=== PATIENT | female | born 1925 | race Caucasian/White ===

== ENCOUNTER → 2016-09-14 | Outpatient (CLI) | payer MEDICARE, BC | LOC: OD 10:21 | PROVIDERS: ATTEND Physician Assistant Medical | DX: R06.02 Shortness of breath (principal) | CPT/HCPCS: 71020 ==

== ENCOUNTER → 2016-10-07 | Outpatient (CLI) | payer MEDICARE, BC ==
[2016-10-07 18:52] LABS: ALANINE AMINOTRANSFERASE 29 U/L (9-52); ALBUMIN 3.9 g/dL (3.5-5.0); ALKALINE PHOSPHATASE 73 U/L (38-126); ANION GAP 11 (5-19); ASPARTATE AMINO TRANSFERASE 28 U/L (14-36); BILIRUBIN,TOTAL 0.5 mg/dL (0.2-1.3); BLOOD UREA NITROGEN 21 mg/dL (7-20); CALCIUM 10.5 mg/dL (8.4-10.2); CARBON DIOXIDE 34 mmol/L (22-30); CHLORIDE 100 mmol/L (98-107); CREATININE RESULT 0.97 mg/dL (0.52-1.25); GLUCOSE 116 mg/dL (75-110); POTASSIUM 3.9 mmol/L (3.6-5.0); SODIUM 145.1 mmol/L (137-145); TOTAL PROTEIN 6.9 g/dL (6.3-8.2)
== END ==
LOC: OD 17:50
PROVIDERS: ATTEND Physician Assistant Medical
DX: R06.02 Shortness of breath (principal); R53.83 Other fatigue
CPT/HCPCS: 36415; 80053; 84443

== ENCOUNTER 2016-10-15 06:52 | Inpatient (IN) | payer MEDICARE, BC ==
[2016-10-15] MEDS ORDERED: ASPIRIN 81 MG TABLET, CHEWABLE PO ONE (07:25)
[2016-10-15] MEDS ORDERED: FUROSEMIDE INJ/PF 40 MG/4 ML SDV IV ONE (07:32)
[2016-10-15 08:46] LABS: PARTIAL THROMBOPLASTIN TIME 28.6 SEC (23.5-35.8); PROTHROMBIN TIME 12.8 SEC (11.4-15.4)
[2016-10-15 08:51] LABS: ABSOLUTE BASOPHILS # (AUTO) 0.1 10^3/uL (0.0-0.2); ABSOLUTE EOSINOPHILS # (AUTO) 0.3 10^3/uL (0.0-0.6); ABSOLUTE MONOCYTES (AUTO) 0.5 10^3/uL (0.1-1.4); ABSOLUTE NEUT (AUTO) 5.7 10^3/uL (1.7-8.2); BASOPHILS % (AUTO) 1.2 % (0-2); EOSINOPHILS % (AUTO) 3.4 % (0-6); HEMATOCRIT 40.3 % (36.0-47.0); HEMOGLOBIN 13.4 g/dL (12.0-15.5); HGB HCT DIFFERENCE -0.1; LYMPHOCYTES % (AUTO) 12.8 % (13-45); MEAN CORPUSCULAR HEMOGLOBIN 30.1 pg (27.0-33.4); MEAN CORPUSCULAR HGB CONC 33.2 g/dL (32.0-36.0); MEAN CORPUSCULAR VOLUME 91 fl (80-97); MONOCYTES % (AUTO) 7.1 % (3-13); RED BLOOD COUNT 4.44 10^6/uL (3.72-5.28); RED CELL DISTRIBUTION WIDTH 14.4 % (11.5-14.0); SEGMENTED NEUTROPHILS % (AUTO) 75.5 % (42-78); WHITE BLOOD COUNT 7.6 10^3/uL (4.0-10.5)
[2016-10-15 08:56] LABS: ALANINE AMINOTRANSFERASE 25 U/L (9-52); ALBUMIN 4.2 g/dL (3.5-5.0); ALKALINE PHOSPHATASE 82 U/L (38-126); ANION GAP 11 (5-19); ASPARTATE AMINO TRANSFERASE 24 U/L (14-36); BILIRUBIN,DIRECT 0.1 mg/dL (0.0-0.4); BILIRUBIN,TOTAL 0.7 mg/dL (0.2-1.3); BLOOD UREA NITROGEN 22 mg/dL (7-20); CALCIUM 11.9 mg/dL (8.4-10.2); CARBON DIOXIDE 35 mmol/L (22-30); CHLORIDE 101 mmol/L (98-107); CREATINE KINASE 62 U/L (30-135); CREATININE RESULT 1.03 mg/dL (0.52-1.25); GLUCOSE 135 mg/dL (75-110); LIPASE 96.7 U/L (23-300); MAGNESIUM 2.2 mg/dL (1.6-2.3); POTASSIUM 4.8 mmol/L (3.6-5.0); SODIUM 146.6 mmol/L (137-145); TOTAL PROTEIN 7.3 g/dL (6.3-8.2)
[2016-10-15 08:59] LABS: VENOUS BLOOD BASE EXCESS 7.6 mmol/L; VENOUS BLOOD HCO3 36.5 mmol/L (20-32); VENOUS BLOOD PH 7.32 (7.30-7.42)
[2016-10-15 09:01] LABS: VENOUS BLOOD PCO2 72.6 mmHg (35-63)
[2016-10-15 09:08] LABS: CREATINE KINASE MB 1.35 ng/mL (<4.55)
[2016-10-15 09:09] LABS: TROPONIN I < 0.012 ng/mL
[2016-10-15 09:44] LABS: APPEARANCE,URINE CLEAR; BILIRUBIN,URINE NEGATIVE (NEGATIVE); GLUCOSE, URINE NEGATIVE (NEGATIVE); KETONES,URINE NEGATIVE (NEGATIVE); LEUKOCYTE ESTERASE,URINE NEGATIVE (NEGATIVE); NITRITE,URINE NEGATIVE (NEGATIVE); PROTEIN,URINE NEGATIVE (NEGATIVE); URINE SPECIFIC GRAVITY 1.004; UROBILINOGEN,URINE NEGATIVE mg/dL (<2.0)
--- NOTE | 2016-10-15 10:16 | EKG REPORT ---
SEVERITY:- BORDERLINE ECG - SINUS RHYTHM BORDERLINE T WAVE ABNORMALITIES : Confirmed by: Deon Clancy MD 15-Oct-2016 10:15:07
--- NOTE | 2016-10-15 10:41 | ER Document Report ---
ED General - General Chief Complaint: Shortness Of Breath Stated Complaint: SHORTNESS OF BREATH TRAVEL OUTSIDE OF THE [place] IN LAST 30 DAYS: No - HPI Patient complains to provider of: shortness of breath Notes: Patient states a history of heart conditions and congestive heart failure having increased dose of breath over the last 12 hours states having difficulty breathing when laying flat had to sit up night prior to arrival states recent change in her medications states was on 2 diuretics Hydrocort thiazide and Lasix now is only on Lasix 20 mg states compliance with her medication however patient is confused about salt intake and fluid restriction states that she only eats salt within the foods that her package. Patient states he does eat a lot of canned food. Unaware of any weight gain. Denies any chest pain denies any fevers - Related Data Allergies/Adverse Reactions: codeine Allergy (Mild, Verified 04/13/16 11:00) Delusions Home Medications: Current Home Medications Amiodarone HCl [Cordarone 200 mg Tablet] 1 tab PO Q12 10/15/16 [History] Amlodipine Besylate [Norvasc 5 mg Tablet] 5 mg PO DAILY 10/15/16 [History] Atorvastatin Calcium [Lipitor 10 mg Tablet] 10 mg PO QHS 10/15/16 [History] Cholecalciferol (Vitamin D3) [Vitamin D3 1000 Unit Tablet] 1,000 unit PO DAILY 10/15/16 [History] Clopidogrel Bisulfate [Plavix 75 mg Tablet] 75 mg PO QAM 10/15/16 [History] Furosemide [Lasix] 40 mg PO DAILY 10/15/16 [History] Gabapentin [Neurontin 300 mg Capsule] 300 mg PO QAM 10/15/16 [History] Gabapentin [Neurontin] 600 mg PO QHS 10/15/16 [History] Glimepiride [Amaryl 1 mg Tablet] 1 mg PO BID 10/15/16 [History] Levothyroxine Sodium [Synthroid] 100 mcg PO DAILY 10/15/16 [History] Linaclotide [Linzess] 290 mcg PO DAILY 10/15/16 [History] Potassium Chloride [Klor-Con 10 Meq Tablet.sa] 20 meq PO DAILY 10/15/16 [History ] Past Medical History - Social History Smoking Status: Unknown if Ever Smoked Family History: Reviewed & Not Pertinent - Past Medical History Cardiac Medical History: Reports: Hx Congestive Heart Failure, Hx Hypercholesterolemia, Hx Hypertension Pulmonary Medical History: Denies: Hx Asthma, Hx Bronchitis, Hx COPD, Hx Pneumonia Neurological Medical History: Denies: Hx Cerebrovascular Accident, Hx Seizures Endocrine Medical History: Reports: Hx Diabetes Mellitus Type 2, Hx Hypothyroidism Renal/ Medical History: Denies: Hx Peritoneal Dialysis Musculoskeltal Medical History: Reports Hx Arthritis - GENERALIZED, Reports Hx Muscle Weakness, Reports Hx Musculoskeletal Deformity Past Surgical History: Reports: Hx Cholecystectomy, Hx Hysterectomy - Immunizations Hx Diphtheria, Pertussis, Tetanus Vaccination: Yes Hx Pneumococcal Vaccination: 04/23/13 Review of Systems - Review of Systems Constitutional: No symptoms reported EENT: No symptoms reported Cardiovascular: No symptoms reported Respiratory: Short of breath Gastrointestinal: No symptoms reported Genitourinary: No symptoms reported Female Genitourinary: No symptoms reported Musculoskeletal: No symptoms reported Skin: No symptoms reported Hematologic/Lymphatic: No symptoms reported Neurological/Psychological: No symptoms reported -: Yes All other systems reviewed and negative Physical Exam - Vital signs Vitals: Resp Pulse Ox 20 98 10/15/16 07:00 10/15/16 07:00 Interpretation: Normal - General General appearance: Appears well, Alert - HEENT Head: Normocephalic, Atraumatic Eyes: Normal Pupils: PERRL - Respiratory Respiratory status: No respiratory distress Chest status: Nontender Breath sounds: Rales Chest palpation: Normal - Cardiovascular Rhythm: Regular Heart sounds: Normal auscultation Murmur: No - Abdominal Inspection: Normal Distension: No distension Bowel sounds: Normal Tenderness: Nontender Organomegaly: No organomegaly - Back Back: Normal, Nontender - Extremities General upper extremity: Normal inspection, Nontender, Normal color, Normal ROM , Normal temperature General lower extremity: Normal inspection, Nontender, Edema - 2+, Normal color , Normal ROM, Normal temperature - Neurological Neuro grossly intact: Yes Cognition: Normal Orientation: AAOx4 [place] Coma Scale Eye Opening: Spontaneous [place] Coma Scale Verbal: Oriented [place] Coma Scale Motor: Obeys Commands [place] Coma Scale Total: 15 Speech: Normal Motor strength normal: LUE, RUE, LLE, RLE Sensory: Normal - Psychological Associated symptoms: Normal affect, Normal mood - Skin Skin Temperature: Warm Skin Moisture: Dry Skin Color: Normal Course - Re-evaluation Re-evalutation: 10/15/16 15:28 Lab work shows thrombocytopenia. Patient's chest x-ray shows mild fluid congestion with pleural effusion. Patient was given Lasix after Lasix with good urinary output and some short and ambulation patient continued to have desaturation of her oxygen status despite having 2 L of oxygen. At this time discussed with the hospital staff limit the patient for a CHF exacerbation. - Vital Signs Vital signs: Temp Pulse Resp BP Pulse Ox 97.5 F 59 L 18 163/54 H 99 10/15/16 13:20 10/15/16 13:20 10/15/16 13:17 10/15/16 13:20 10/15/16 13:20 - Laboratory Result Diagrams: 10/15/16 08:33 10/15/16 08:33 Laboratory results interpreted by me: 10/15/16 10/15/16 10/15/16 08:15 08:33 08:33 RDW 14.4 H Plt Count 89 L Lymphocytes % 12.8 L VBG pCO2 72.6 H* VBG HCO3 36.5 H Sodium 146.6 H Carbon Dioxide 35 H BUN 22 H Est GFR (Non-Af Amer) 50 L Glucose 135 H Calcium 11.9 H NT-Pro-B Natriuret Pep 10/15/16 08:33 RDW Plt Count Lymphocytes % VBG pCO2 VBG HCO3 Sodium Carbon Dioxide BUN Est GFR (Non-Af Amer) Glucose Calcium NT-Pro-B Natriuret Pep 564 H Discharge - Discharge Clinical Impression: Thrombocytopenia CHF exacerbation Qualifiers: Congestive heart failure type: diastolic Qualified Code(s): I50.33 - Acute on chronic diastolic (congestive) heart failure Condition: Good Disposition: ADMITTED INPATIENT Admitting Provider: Hospitalist - [facility] Unit Admitted: Telemetry
[2016-10-15] MEDS ORDERED: ACETAMINOPHEN 325 MG TABLET PO PRN (12:05)
[2016-10-15] MEDS ORDERED: INSULIN LISPRO 100 UNIT/ML 3 ML VIAL SUBCUT PRN (12:20)
[2016-10-15] MEDS ORDERED: DEXTROSE 40% GEL 15 GM TUBE PO PRN ×2 (12:20)
[2016-10-15] MEDS ORDERED: DEXTROSE 50%-WATER 25 GM/50 ML DISP.SYRIN IV PRN ×2 (12:20)
[2016-10-15] MEDS ORDERED: GLUCAGON,HUMAN RECOMB 1 MG INJ IM PRN (12:20)
[2016-10-15] MEDS ORDERED: HEPARIN SOD (PORCINE) 5,000 UNIT/ML 1 ML SYRINGE SUBCUT SCH (14:00)
[2016-10-15] MEDS: AMLODIPINE BESYLATE 5 MG TABLET PO SCH (14:27)
--- NOTE | 2016-10-15 15:20 | PDOC H&P ---
History of Present Illness Admission Date/PCP: 10/15/16 12:05 JORGE MAY MD Patient complains of: Difficulty breathing History of Present Illness: GEORGETTE RIVERA is a 89 year old female presents to the emergency department with a 24-hour history of worsening shortness of breath, worsening swelling and weight gain, increased orthopnea and PND. She carries a history of diastolic heart failure and is followed by Dr. Herring as her primary clinical exercise physiologist who recently discontinued her HCTZ in coordination with her bakery helper following her hyperparathyroidism and resultant hypercalcemia. They did increase her Lasix dose. Since that time however she has noticed gradual increase in generalized swelling culminating in today's presentation. She normally wears 2 L of oxygen at night but over the last 24 hours has taken to using it continuously with little relief. She reportedly had an NSTEMI in March 2016, echocardiogram at that time had a normal left ventricular systolic function but grade 2 diastolic dysfunction. Evaluation in the emergency department shows her to be fluid overloaded and rufina most likely diastolic heart failure given her history and we were asked to admit for further evaluation and management. Past Medical History Cardiac Medical History: Reports: Congestive Heart Failure, Hyperlipidema, Hypertension Pulmonary Medical History: Denies: Asthma, Bronchitis, Chronic Obstructive Pulmonary Disease (COPD), Pneumonia Neurological Medical History: Denies: Seizures Endocrine Medical History: Reports: Diabetes Mellitus Type 2, Hypothyroidism Musculoskeltal Medical History: Reports: Arthritis - GENERALIZED Psychiatric Medical History: Denies: Depression Hematology: Denies: Anemia Past Surgical History Past Surgical History: Reports: Cholecystectomy, Hysterectomy Social History Smoking Status: Never Smoker Frequency of Alcohol Use: None Hx Recreational Drug Use: No Drugs: None Hx Prescription Drug Abuse: No - Advance Directive Resuscitation Status: Full Code Family History Family History: Reviewed & Not Pertinent, CAD Parental Family History Reviewed: Yes Children Family History Reviewed: Yes Sibling(s) Family History Reviewed.: Yes Medication/Allergy Home Medications: Amiodarone HCl [Cordarone 200 mg Tablet] 1 tab PO Q12 10/15/16 Amlodipine Besylate [Norvasc 5 mg Tablet] 5 mg PO DAILY 10/15/16 Atorvastatin Calcium [Lipitor 10 mg Tablet] 10 mg PO QHS 10/15/16 Cholecalciferol (Vitamin D3) [Vitamin D3 1000 Unit Tablet] 1,000 unit PO DAILY 10/15/16 Clopidogrel Bisulfate [Plavix 75 mg Tablet] 75 mg PO QAM 10/15/16 Furosemide [Lasix] 40 mg PO DAILY 10/15/16 Gabapentin [Neurontin 300 mg Capsule] 300 mg PO QAM 10/15/16 Gabapentin [Neurontin] 600 mg PO QHS 10/15/16 Glimepiride [Amaryl 1 mg Tablet] 1 mg PO BID 10/15/16 Levothyroxine Sodium [Synthroid] 100 mcg PO DAILY 10/15/16 Linaclotide [Linzess] 290 mcg PO DAILY 10/15/16 Potassium Chloride [Klor-Con 10 Meq Tablet.sa] 20 meq PO DAILY 10/15/16 Allergies/Adverse Reactions: codeine Allergy (Mild, Verified 04/13/16 11:00) Delusions Review of Systems Constitutional: ABSENT: chills, fever(s), headache(s), weight gain, weight loss Eyes: ABSENT: visual disturbances Ears: ABSENT: hearing changes Cardiovascular: PRESENT: dyspnea on exertion, edema, orthropnea. ABSENT: chest pain, palpitations Respiratory: PRESENT: dyspnea. ABSENT: cough, hemoptysis, sputum Gastrointestinal: ABSENT: abdominal pain, constipation, diarrhea, hematemesis, hematochezia, nausea, vomiting Genitourinary: ABSENT: dysuria, hematuria Musculoskeletal: ABSENT: joint swelling Integumentary: ABSENT: rash, wounds Neurological: ABSENT: abnormal gait, abnormal speech, confusion, dizziness, focal weakness, syncope Psychiatric: ABSENT: anxiety, depression Endocrine: ABSENT: cold intolerance, heat intolerance, polydipsia, polyuria Hematologic/Lymphatic: ABSENT: easy bleeding, easy bruising Physical Exam Vital Signs: Temp Pulse Resp BP Pulse Ox 97.5 F 59 L 18 163/54 H 99 10/15/16 13:20 10/15/16 13:20 10/15/16 13:17 10/15/16 13:20 10/15/16 13:20 Intake & Output 10/14/16 10/15/16 10/16/16 06:59 06:59 06:59 Weight 88.4 kg PHYSICAL EXAM GENERAL: NAD; well developed, well nourished; mod obese; alert and oriented to person, place, time, situation HEENT: normocephalic, atraumatic; EOMI, PERRLA, no conjunctival injection, no scleral icterus; oral mucosa moist; neck supple, no LAD, normal ROM RESPIRATORY: no accessory muscle use, no increased WOB, diminished air entry bilaterally; no wheezes, rhonchi; bilateral rales CARDIO: no obvious JVD; RRR; soft systolic ejection murmur left second intercostal; bradycardia VASCULAR: no carotid bruit; no abdominal bruit; no pallor; 2+ radial, DP pulse ; normal capillary refill GI: soft; nondistended; normal bowel sounds; no hepato spleno megaly; no rebound, rigidity, guarding; nontender NEURO: normal patella reflexes; normal sensation; normal motor function;no dysarthria; MSK: 5/5 strength; normal ROM hips; ambulatory without assistance; no tenderness EXTREMITIES: no calf tender; no palpable cords in calf; no clubbing, cyanosis ; diffuse edema 1+ at the ankles tracking all the way to trace edema up to the xiphoid process most evident in dependent tissues PSYCH: normal affect, normal mood SKIN: warm; moist; no petechiae; no telengectasias; no jaundice; no rash Results Laboratory Results: 10/15/16 13:19 Troponin I 0.015 Impressions: Chest X-Ray 10/15/16 07:25 IMPRESSION: Mild vascular congestion. Small left effusion. Status: Image reviewed by me - agree with radiology Assessment & Plan - Diagnosis (1) Acute diastolic heart failure Is this a current diagnosis for this admission?: YesPlan: Patient will be admitted to monitored bed and changed from oral to IV Lasix in attempt to diurese 1 L per day; fluid restrict, daily weights, strict I's and O' s. Continue usual home regimen otherwise. (2) Hypercalcemia Is this a current diagnosis for this admission?: Yes (3) Hyperlipidemia Qualifiers: Hyperlipidemia type: unspecified Qualified Code(s): E78.5 - Hyperlipidemia, unspecified Is this a current diagnosis for this admission?: Yes (4) Hypertension Qualifiers: Hypertension type: essential hypertension Qualified Code(s): I10 - Essential (primary) hypertension Is this a current diagnosis for this admission?: Yes (5) Type II diabetes mellitus Qualifiers: Diabetes mellitus complication status: with unspecified complications Diabetes mellitus terminal makeup operator insulin use: without terminal makeup operator use Qualified Code(s): E11.8 - Type 2 diabetes mellitus with unspecified complications; Z79.4 - penitentiary (current) use of insulin Is this a current diagnosis for this admission?: Yes - Time Time Spent: 50 to 70 Minutes Medications reviewed and adjusted accordingly: Yes Anticipated discharge: Home with Homehealth Within: within 72 hours - Inpatient Certification Medical Necessity: Significant Comorbidiites Make Outpatient Treatment Too Risky , Need For Continuous Telemetry Monitoring, Risk of Complication if Not Cared For in Hospital - Plan Summary Plan Summary: Continue home meds for chronic medical conditions. Monitor platelet therapy while on Plavix. H2 giuliano for GI prophylaxis; SCDs for DVT prophylaxis due to chronic thrombocytopenia and products given.
[2016-10-15] MEDS: GLIMEPIRIDE 1 MG TABLET PO SCH (17:00)
[2016-10-15] MEDS: AMIODARONE HCL 200 MG TABLET PO SCH (21:19)
[2016-10-15] MEDS: ATORVASTATIN CALCIUM 10 MG TABLET PO SCH (21:20)
[2016-10-15] MEDS ORDERED: AMIODARONE HCL 200 MG TABLET PO SCH (22:00)
[2016-10-15] MEDS ORDERED: FUROSEMIDE INJ/PF 40 MG/4 ML SDV IV SCH (22:00)
[2016-10-16 07:34] LABS: ANION GAP 7 (5-19); BLOOD UREA NITROGEN 22 mg/dL (7-20); CALCIUM 10.8 mg/dL (8.4-10.2); CARBON DIOXIDE 37 mmol/L (22-30); CHLORIDE 101 mmol/L (98-107); CREATININE RESULT 0.97 mg/dL (0.52-1.25); GLUCOSE 122 mg/dL (75-110); MAGNESIUM 2.1 mg/dL (1.6-2.3); POTASSIUM 4.3 mmol/L (3.6-5.0); SODIUM 145.4 mmol/L (137-145)
[2016-10-16] MEDS: GABAPENTIN 300 MG CAPSULE PO SCH (08:26)
[2016-10-16] MEDS: Linaclotide [Linzess] PO SCH (08:27)
[2016-10-16] MEDS: POTASSIUM CHLORIDE 10 MEQ TABLET.SA PO SCH (11:00)
[2016-10-16] MEDS: GLIMEPIRIDE 1 MG TABLET PO SCH ×2 (11:00→17:37)
[2016-10-16] MEDS: AMIODARONE HCL 200 MG TABLET PO SCH ×2 (11:01→23:54)
[2016-10-16] MEDS: LEVOTHYROXINE SODIUM 0.1 MG TABLET PO SCH (11:01)
[2016-10-16] MEDS: PANTOPRAZOLE SODIUM 40 MG VIAL IV SCH (11:01)
--- NOTE | 2016-10-16 13:55 | PDOC PROGRESS REPORT ---
Subjective Progress Note for:: 10/16/16 Subjective:: Reason for visit: Follow-up diastolic heart failure, acute respiratory failure Hospital course:GEORGETTE RIVERA is a 89 year old female presents to the emergency department with a 24-hour history of worsening shortness of breath, worsening swelling and weight gain, increased orthopnea and PND. She carries a history of diastolic heart failure and is followed by Dr. Herring as her primary medical assisting program director who recently discontinued her HCTZ in coordination with her vending route driver following her hyperparathyroidism and resultant hypercalcemia. They did increase her Lasix dose. Since that time however she has noticed gradual increase in generalized swelling culminating in today's presentation. She normally wears 2 L of oxygen at night but over the last 24 hours has taken to using it continuously with little relief. She reportedly had an NSTEMI in March 2016, echocardiogram at that time had a normal left ventricular systolic function but grade 2 diastolic dysfunction. Evaluation in the emergency department shows her to be fluid overloaded and rufina most likely diastolic heart failure given her history and we were asked to admit for further evaluation and management. She reports minimal improvement in her generalized edema and no improvement in her respiratory status. She still feels a heaviness in her chest accident difficult to get her air. She is easily fatigued and breathless with minimal exertion. Subjective: As above, denies chest pain, palpitations, nausea, vomiting, diarrhea, fever, chills. ROS: per HPI plus a total of 10 systems reviewed, pertinent positives and negatives noted above, remaining systems negative. Physical Exam Vital Signs: Temp Pulse Resp BP Pulse Ox 98.1 F 57 L 17 142/54 H 99 10/16/16 12:00 10/16/16 12:00 10/16/16 12:00 10/16/16 12:00 10/16/16 12:00 Pulse Oximeter Continuous Start: 10/15/16 12: 10 Freq: RTQ4 Status: Active Document 10/16/16 12:00 HCR (Rec: 10/16/16 12:15 HCR [email or web address]) Pulse Oximetry Assessment Oxygen Saturation (92-100) 99 Oxygen Flow Rate (L/min) 3 Oxygen Delivery Method Nasal Cannula Equipment Usage Equipment in Use Continuous SpO2 Machine # 14 Intake & Output 10/15/16 10/16/16 10/17/16 06:59 06:59 06:59 Intake Total 700 Output Total 800 Balance -100 Weight 89.4 kg PHYSICAL EXAM GENERAL: NAD; well developed, well nourished; mod obese; alert and oriented to person, place, time, situation HEENT: normocephalic, atraumatic; EOMI, PERRLA, no conjunctival injection, no scleral icterus; oral mucosa moist; neck supple, no LAD, normal ROM RESPIRATORY: no accessory muscle use, no increased WOB, diminished air entry bilaterally; no wheezes, rhonchi; worsened bilateral rales diffuse CARDIO: no obvious JVD; RRR; soft systolic ejection murmur left second intercostal; bradycardia VASCULAR: no pallor; 2+ radial; normal capillary refill GI: soft; nondistended; normal bowel sounds; no hepato spleno megaly; no rebound, rigidity, guarding; nontender NEURO: normal patella reflexes; normal sensation; normal motor function;no dysarthria; MSK: 5/5 strength; normal ROM hips; ambulatory without assistance; no tenderness EXTREMITIES: no calf tender; no palpable cords in calf; no clubbing, cyanosis ; diffuse edema 1+ at the ankles tracking all the way to trace edema up to the xiphoid process most evident in dependent tissues - unchanged PSYCH: normal affect, normal mood SKIN: warm; moist; no petechiae; no telengectasias; no jaundice; no rash Results Laboratory Results: 10/16/16 07:04 10/16/16 10/16/16 06:12 07:04 Sodium Cancelled 145.4 H Potassium Cancelled 4.3 Chloride Cancelled 101 Carbon Dioxide Cancelled 37 H Anion Gap Cancelled 7 BUN Cancelled 22 H Creatinine Cancelled 0.97 Est GFR ( Amer) Cancelled > 60 Est GFR (Non-Af Amer) Cancelled 54 L Glucose Cancelled 122 H Calcium Cancelled 10.8 H Magnesium Cancelled 2.1 10/15/16 10/16/16 10/16/16 13:19 06:12 07:04 Troponin I 0.015 NT-Pro-B Natriuret Pep Cancelled 561 H Impressions: Chest X-Ray 10/15/16 07:25 IMPRESSION: Mild vascular congestion. Small left effusion. Assessment & Plan - Diagnosis (1) Acute diastolic heart failure Is this a current diagnosis for this admission?: YesPlan: Worse. Increase IV Lasix in attempt to diurese 1 L per day; fluid restrict, daily weights, strict I's and O's. Continue usual home regimen otherwise. (2) Hypercalcemia Is this a current diagnosis for this admission?: Yes (3) Hyperlipidemia Qualifiers: Hyperlipidemia type: unspecified Qualified Code(s): E78.5 - Hyperlipidemia, unspecified Is this a current diagnosis for this admission?: Yes (4) Hypertension Qualifiers: Hypertension type: essential hypertension Qualified Code(s): I10 - Essential (primary) hypertension Is this a current diagnosis for this admission?: Yes (5) Type II diabetes mellitus Qualifiers: Diabetes mellitus complication status: with unspecified complications Diabetes mellitus terminal makeup operator insulin use: without terminal makeup operator use Qualified Code(s): E11.8 - Type 2 diabetes mellitus with unspecified complications; Z79.4 - correction (current) use of insulin Is this a current diagnosis for this admission?: Yes - Time Time Spent with patient: 25-34 minutes
[2016-10-16] MEDS: FUROSEMIDE INJ/PF 40 MG/4 ML SDV IV SCH ×2 (14:51→22:08)
[2016-10-16] MEDS: AMLODIPINE BESYLATE 5 MG TABLET PO SCH (17:37)
[2016-10-16] MEDS: ATORVASTATIN CALCIUM 10 MG TABLET PO SCH (22:08)
[2016-10-17] MEDS: FUROSEMIDE INJ/PF 40 MG/4 ML SDV IV SCH ×3 (06:30→22:37)
[2016-10-17 06:55] LABS: ANION GAP 11 (5-19); BLOOD UREA NITROGEN 27 mg/dL (7-20); CARBON DIOXIDE 38 mmol/L (22-30); CHLORIDE 96 mmol/L (98-107); CREATININE RESULT 0.97 mg/dL (0.52-1.25); GLUCOSE 106 mg/dL (75-110); POTASSIUM 4.1 mmol/L (3.6-5.0); SODIUM 144.7 mmol/L (137-145)
[2016-10-17] MEDS: GABAPENTIN 300 MG CAPSULE PO SCH (07:42)
[2016-10-17] MEDS: Linaclotide [Linzess] PO SCH (07:42)
[2016-10-17] MEDS: POTASSIUM CHLORIDE 10 MEQ TABLET.SA PO SCH (09:15)
[2016-10-17] MEDS: PANTOPRAZOLE SODIUM 40 MG VIAL IV SCH (09:15)
[2016-10-17] MEDS: AMIODARONE HCL 200 MG TABLET PO SCH ×2 (09:15→22:37)
[2016-10-17] MEDS: LEVOTHYROXINE SODIUM 0.1 MG TABLET PO SCH (09:15)
[2016-10-17] MEDS: GLIMEPIRIDE 1 MG TABLET PO SCH ×2 (09:15→17:18)
[2016-10-17] MEDS: AMLODIPINE BESYLATE 5 MG TABLET PO SCH (15:12)
--- NOTE | 2016-10-17 17:33 | PDOC PROGRESS REPORT ---
Subjective Progress Note for:: 10/17/16 Subjective:: Reason for visit: Follow-up diastolic heart failure, acute respiratory failure Hospital course:GEORGETTE RIVERA is a 89 year old female presents to the emergency department with a 24-hour history of worsening shortness of breath, worsening swelling and weight gain, increased orthopnea and PND. She carries a history of diastolic heart failure and is followed by Dr. Herring as her primary linen room custodian who recently discontinued her HCTZ in coordination with her fish net maker following her hyperparathyroidism and resultant hypercalcemia. They did increase her Lasix dose. Since that time however she has noticed gradual increase in generalized swelling culminating in today's presentation. She normally wears 2 L of oxygen at night but over the last 24 hours has taken to using it continuously with little relief. She reportedly had an NSTEMI in March 2016, echocardiogram at that time had a normal left ventricular systolic function but grade 2 diastolic dysfunction. Evaluation in the emergency department shows her to be fluid overloaded and rufina most likely diastolic heart failure given her history and we were asked to admit for further evaluation and management. She reports minimal improvement in her generalized edema and no improvement in her respiratory status. She still feels a heaviness in her chest accident difficult to get her air. She is easily fatigued and breathless with minimal exertion. Subjective: As above, denies chest pain, palpitations, nausea, vomiting, diarrhea, fever, chills. ROS: per HPI plus a total of 10 systems reviewed, pertinent positives and negatives noted above, remaining systems negative. Physical Exam Vital Signs: Temp Pulse Resp BP Pulse Ox 97.6 F 52 L 18 136/50 H 98 10/17/16 11:09 10/17/16 14:00 10/17/16 11:09 10/17/16 11:09 10/17/16 12:18 Intake & Output 10/16/16 10/17/16 10/18/16 06:59 06:59 06:59 Intake Total 700 940 Output Total 800 2300 Balance -100 -1360 Weight 89.4 kg 90.6 kg PHYSICAL EXAM GENERAL: NAD; well developed, well nourished; mod obese; alert and oriented to person, place, time, situation HEENT: normocephalic, atraumatic; EOMI, PERRLA, no conjunctival injection, no scleral icterus; oral mucosa moist; neck supple, no LAD, normal ROM RESPIRATORY: no accessory muscle use, no increased WOB, diminished air entry bilaterally; no wheezes, rhonchi; stable bilateral rales CARDIO: no obvious JVD; RRR; soft systolic ejection murmur left second intercostal; bradycardia VASCULAR: no pallor; 2+ radial; normal capillary refill GI: soft; nondistended; normal bowel sounds; no hepato spleno megaly; no rebound, rigidity, guarding; nontender NEURO: normal patella reflexes; normal sensation; normal motor function;no dysarthria; MSK: 5/5 strength; normal ROM hips; ambulatory without assistance; no tenderness EXTREMITIES: no calf tender; no palpable cords in calf; no clubbing, cyanosis ; diffuse edema 1+ at the ankles tracking all the way to trace edema up to the xiphoid process most evident in dependent tissues - minimally improved, showing wrinkles in her feet PSYCH: normal affect, normal mood SKIN: warm; moist; no petechiae; no telengectasias; no jaundice; no rash Results Laboratory Results: 10/17/16 05:39 10/17/16 05:39 Sodium 144.7 Potassium 4.1 Chloride 96 L Carbon Dioxide 38 H Anion Gap 11 BUN 27 H Creatinine 0.97 Est GFR ( Amer) > 60 Est GFR (Non-Af Amer) 54 L Glucose 106 Calcium 11.0 H 10/15/16 10/16/16 10/16/16 13:19 06:12 07:04 Troponin I 0.015 NT-Pro-B Natriuret Pep Cancelled 561 H 10/17/16 05:39 Troponin I NT-Pro-B Natriuret Pep 486 H labs reviewed, met alkalosis worsening Assessment & Plan - Diagnosis (1) Acute diastolic heart failure Is this a current diagnosis for this admission?: YesPlan: slight improvement but not back to baseline. continue IV Lasix in attempt to diurese 1 L per day; fluid restrict, daily weights, strict I's and O's. Continue usual home regimen otherwise. (2) Hypercalcemia Is this a current diagnosis for this admission?: YesPlan: Likely worsened due to intravascular volume contraction. (3) Hyperlipidemia Qualifiers: Hyperlipidemia type: unspecified Qualified Code(s): E78.5 - Hyperlipidemia, unspecified Is this a current diagnosis for this admission?: Yes (4) Hypertension Qualifiers: Hypertension type: essential hypertension Qualified Code(s): I10 - Essential (primary) hypertension Is this a current diagnosis for this admission?: Yes (5) Type II diabetes mellitus Qualifiers: Diabetes mellitus complication status: with unspecified complications Diabetes mellitus stage technician insulin use: without stage technician use Qualified Code(s): E11.8 - Type 2 diabetes mellitus with unspecified complications; Z79.4 - [facility] (current) use of insulin Is this a current diagnosis for this admission?: Yes (6) Metabolic alkalosis with respiratory acidosis Is this a current diagnosis for this admission?: YesPlan: There may also be an element of contraction alkalosis occurring as we diurese. We'll check an arterial blood gas and continue to monitor her Chem-7. - Time Time Spent with patient: 25-34 minutes - Plan Summary Plan Summary: There may not be much more intravascular room for continued diuresis but will push through one more day. We'll need to reevaluate carefully in the morning and likely cut back on the IV Lasix. She is only just now starting to show some improvement with her respiratory status however prompting continued aggressive therapy.
[2016-10-17] MEDS: ATORVASTATIN CALCIUM 10 MG TABLET PO SCH (22:37)
[2016-10-18 00:40] LABS: VENOUS BLOOD BASE EXCESS 15.1 mmol/L; VENOUS BLOOD PH 7.38 (7.30-7.42)
[2016-10-18 00:42] LABS: VENOUS BLOOD PCO2 75.8 mmHg (35-63)
[2016-10-18 04:04] LABS: VENOUS BLOOD BASE EXCESS 14.9 mmol/L; VENOUS BLOOD HCO3 43.5 mmol/L (20-32); VENOUS BLOOD PH 7.39 (7.30-7.42)
[2016-10-18 04:26] LABS: VENOUS BLOOD PCO2 73.4 mmHg (35-63)
[2016-10-18 04:31] LABS: ANION GAP 12 (5-19); BLOOD UREA NITROGEN 33 mg/dL (7-20); CALCIUM 11.1 mg/dL (8.4-10.2); CARBON DIOXIDE 39 mmol/L (22-30); CHLORIDE 93 mmol/L (98-107); CREATININE RESULT 1.14 mg/dL (0.52-1.25); GLUCOSE 112 mg/dL (75-110); MAGNESIUM 2.2 mg/dL (1.6-2.3); POTASSIUM 3.8 mmol/L (3.6-5.0); SODIUM 144.2 mmol/L (137-145)
[2016-10-18] MEDS: FUROSEMIDE INJ/PF 40 MG/4 ML SDV IV SCH ×2 (06:33→13:54)
[2016-10-18] MEDS: GABAPENTIN 300 MG CAPSULE PO SCH (07:31)
[2016-10-18] MEDS: Linaclotide [Linzess] PO SCH (07:32)
[2016-10-18] MEDS: LEVOTHYROXINE SODIUM 0.1 MG TABLET PO SCH (09:01)
[2016-10-18] MEDS: AMIODARONE HCL 200 MG TABLET PO SCH ×2 (09:01→21:32)
[2016-10-18] MEDS: GLIMEPIRIDE 1 MG TABLET PO SCH ×2 (09:01→17:24)
[2016-10-18] MEDS: PANTOPRAZOLE SODIUM 40 MG VIAL IV SCH (09:01)
[2016-10-18] MEDS: POTASSIUM CHLORIDE 10 MEQ TABLET.SA PO SCH (09:01)
[2016-10-18] MEDS: AMLODIPINE BESYLATE 5 MG TABLET PO SCH (14:46)
--- NOTE | 2016-10-18 16:37 | PDOC PROGRESS REPORT ---
Subjective Progress Note for:: 10/18/16 Subjective:: Patient is doing well She has no respiratory distress chest pain ; her oxygenation is adequate She is anxious to go home On the monitor she is in sinus rhythm Physical Exam Vital Signs: Temp Pulse Resp BP Pulse Ox 98.0 F 58 L 18 124/62 100 10/18/16 15:53 10/18/16 15:53 10/18/16 15:53 10/18/16 15:53 10/18/16 15:53 Pulse Oximeter Continuous Start: 10/15/16 12: 10 Freq: RTQ4 Status: Complete Document 10/18/16 04:05 [facility] (Rec: 10/18/16 04:34 [facility] [id number]) Pulse Oximetry Assessment Oxygen Saturation (92-100) 90 Oxygen Delivery Method Room Air Fraction of Inspired Oxygen (FIO2) 21 Equipment Usage Equipment in Use Continuous SpO2 Machine # 14 Intake & Output 10/17/16 10/18/16 10/19/16 00:59 00:59 00:59 Intake Total 1230 670 310 Output Total 1950 551 601 Balance -720 119 -291 Weight 90.6 kg 99.6 kg General appearance: PRESENT: no acute distress, cooperative Head exam: PRESENT: atraumatic, normocephalic Eye exam: PRESENT: conjunctival injection Neck exam: ABSENT: carotid bruit, JVD, lymphadenopathy, thyromegaly Respiratory exam: PRESENT: clear to auscultation niecy. ABSENT: rales, rhonchi, wheezes Cardiovascular exam: PRESENT: RRR. ABSENT: diastolic murmur, rubs, systolic murmur GI/Abdominal exam: PRESENT: normal bowel sounds, soft. ABSENT: distended, guarding, mass, organolmegaly, rebound, tenderness Neurological exam: PRESENT: alert, awake, oriented to person, oriented to place , oriented to time, oriented to situation, CN II-XII grossly intact. ABSENT: motor sensory deficit Results Laboratory Results: 10/18/16 03:50 10/18/16 10/18/16 10/18/16 00:12 03:50 03:50 VBG pH 7.38 7.39 VBG pCO2 75.8 H* 73.4 H* VBG HCO3 44.0 H 43.5 H VBG Base Excess 15.1 14.9 Sodium 144.2 Potassium 3.8 Chloride 93 L Carbon Dioxide 39 H Anion Gap 12 BUN 33 H Creatinine 1.14 Est GFR ( Amer) 54 L Est GFR (Non-Af Amer) 45 L Glucose 112 H Calcium 11.1 H Magnesium 2.2 10/15/16 10/16/16 10/16/16 13:19 06:12 07:04 Troponin I 0.015 NT-Pro-B Natriuret Pep Cancelled 561 H 10/17/16 10/18/16 05:39 03:50 Troponin I NT-Pro-B Natriuret Pep 486 H 358 Impressions: Chest X-Ray 10/15/16 07:25 IMPRESSION: Mild vascular congestion. Small left effusion. 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 Guardado endocrinology in [place] will take care of the patient We will initiate treatment for hypocalcemia with Sensipar 30 mg by mouth twice a day - Time Time Spent with patient: Patient will be discharged in a.m. if stable Decrease Lasix ; repeat labs in a.m. Time Spent with patient: 15-24 minutes
[2016-10-18] MEDS: CINACALCET HCL 30 MG TABLET PO SCH (17:23)
[2016-10-18] MEDS: ATORVASTATIN CALCIUM 10 MG TABLET PO SCH (21:32)
[2016-10-19 06:05] LABS: ANION GAP 8 (5-19); BLOOD UREA NITROGEN 34 mg/dL (7-20); CALCIUM 10.7 mg/dL (8.4-10.2); CHLORIDE 93 mmol/L (98-107); CREATININE RESULT 1.05 mg/dL (0.52-1.25); GLUCOSE 92 mg/dL (75-110); POTASSIUM 3.8 mmol/L (3.6-5.0); SODIUM 141.3 mmol/L (137-145)
[2016-10-19 06:23] LABS: CARBON DIOXIDE 40 mmol/L (22-30)
[2016-10-19] MEDS ORDERED: NORMAL SALINE 1000 ML 500 ML IV ONE (06:31)
[2016-10-19] MEDS: GABAPENTIN 300 MG CAPSULE PO SCH (08:17)
[2016-10-19] MEDS: Linaclotide [Linzess] PO SCH (08:17)
[2016-10-19] MEDS: GLIMEPIRIDE 1 MG TABLET PO SCH ×2 (09:19→17:26)
[2016-10-19] MEDS: LEVOTHYROXINE SODIUM 0.1 MG TABLET PO SCH (09:20)
[2016-10-19] MEDS: POTASSIUM CHLORIDE 10 MEQ TABLET.SA PO SCH (09:20)
[2016-10-19] MEDS: CINACALCET HCL 30 MG TABLET PO SCH ×2 (09:20→17:26)
[2016-10-19] MEDS: AMIODARONE HCL 200 MG TABLET PO SCH ×2 (09:20→21:34)
[2016-10-19] MEDS ORDERED: FUROSEMIDE INJ/PF 40 MG/4 ML SDV IV SCH (10:00)
[2016-10-19] MEDS ORDERED: 1/2 NORMAL SALINE 1,000 ML IV PRN (11:56)
--- NOTE | 2016-10-19 14:42 | EKG REPORT ---
SEVERITY:- ABNORMAL ECG - SINUS BRADYCARDIA PROBABLE LEFT VENTRICULAR HYPERTROPHY : Confirmed by: Chris Garcia 19-Oct-2016 14:41:31
--- NOTE | 2016-10-19 16:23 | PDOC PROGRESS REPORT ---
Subjective Progress Note for:: 10/19/16 Subjective:: Patient is doing well no CP or SOB labs have been abnormal with severe metabolic alcalosis secondary to overdiuresis Ca is 10.8 Physical Exam Vital Signs: Temp Pulse Resp BP Pulse Ox 98.0 F 70 14 136/49 H 100 10/19/16 13:20 10/19/16 13:20 10/19/16 13:20 10/19/16 13:20 10/19/16 13:20 Pulse Oximeter Continuous Start: 10/15/16 12: 10 Freq: RTQ4 Status: Complete Document 10/18/16 04:05 [facility] (Rec: 10/18/16 04:34 [facility] [id number]) Pulse Oximetry Assessment Oxygen Saturation (92-100) 90 Oxygen Delivery Method Room Air Fraction of Inspired Oxygen (FIO2) 21 Equipment Usage Equipment in Use Continuous SpO2 Machine # 14 Intake & Output 10/18/16 10/19/16 10/20/16 00:59 00:59 00:59 Intake Total 670 740 850 Output Total 551 601 825 Balance 119 139 25 Weight 99.6 kg General appearance: PRESENT: no acute distress, well-developed, well-nourished Head exam: PRESENT: atraumatic, normocephalic Eye exam: PRESENT: conjunctiva pink, EOMI, PERRLA. ABSENT: scleral icterus Ear exam: PRESENT: normal external ear exam Mouth exam: PRESENT: moist, tongue midline Neck exam: ABSENT: carotid bruit, JVD, lymphadenopathy, thyromegaly Respiratory exam: PRESENT: clear to auscultation niecy. ABSENT: rales, rhonchi, wheezes Cardiovascular exam: PRESENT: RRR. ABSENT: diastolic murmur, rubs, systolic murmur Pulses: PRESENT: normal dorsalis pedis pul Vascular exam: PRESENT: normal capillary refill GI/Abdominal exam: PRESENT: normal bowel sounds, soft. ABSENT: distended, guarding, mass, organolmegaly, rebound, tenderness Rectal exam: PRESENT: deferred Extremities exam: PRESENT: full ROM. ABSENT: calf tenderness, clubbing, pedal edema Neurological exam: PRESENT: alert, awake, oriented to person, oriented to place , oriented to time, oriented to situation, CN II-XII grossly intact. ABSENT: motor sensory deficit Psychiatric exam: PRESENT: appropriate affect, normal mood. ABSENT: homicidal ideation, suicidal ideation Skin exam: PRESENT: dry, intact, warm. ABSENT: cyanosis, rash Results Laboratory Results: 10/19/16 05:27 10/19/16 05:27 Sodium 141.3 Potassium 3.8 Chloride 93 L Carbon Dioxide 40 H* Anion Gap 8 BUN 34 H Creatinine 1.05 Est GFR ( Amer) > 60 Est GFR (Non-Af Amer) 49 L Glucose 92 Calcium 10.7 H 10/17/16 11:04 Nasophary (Mrsa Only) MRSA Surveillance Culture - Final NO MRSA RECOVERED 10/15/16 10/16/16 10/16/16 13:19 06:12 07:04 Troponin I 0.015 NT-Pro-B Natriuret Pep Cancelled 561 H 10/17/16 10/18/16 05:39 03:50 Troponin I NT-Pro-B Natriuret Pep 486 H 358 Impressions: Chest X-Ray 10/19/16 06:00 IMPRESSION: HEART ENLARGED WITHOUT FAILURE. Resolved small left effusion. Assessment & Plan - Diagnosis (1) CHF exacerbation Qualifiers: Congestive heart failure type: diastolic Qualified Code(s): I50.33 - Acute on chronic diastolic (congestive) heart failure Is this a current diagnosis for this admission?: YesPlan: repeat CXR improved CHF well compensated now (2) Hypercalcemia Is this a current diagnosis for this admission?: YesPlan: spoke with Dr Guardado Respiratory Equipment Assistant [place] treat with sensipar 30 mg bid (3) Metabolic alkalosis Is this a current diagnosis for this admission?: YesPlan: will hydrate for 24 hours recheck BMP in am - Time Time Spent with patient: discharge in am if stable Time Spent with patient: 25-34 minutes
[2016-10-19] MEDS: AMLODIPINE BESYLATE 5 MG TABLET PO SCH (16:45)
[2016-10-19] MEDS: ATORVASTATIN CALCIUM 10 MG TABLET PO SCH (21:34)
[2016-10-20] MEDS: Linaclotide [Linzess] PO SCH (07:29)
[2016-10-20] MEDS: GABAPENTIN 300 MG CAPSULE PO SCH (07:29)
[2016-10-20] MEDS: GLIMEPIRIDE 1 MG TABLET PO SCH (09:00)
[2016-10-20] MEDS: CINACALCET HCL 30 MG TABLET PO SCH (09:00)
[2016-10-20] MEDS: POTASSIUM CHLORIDE 10 MEQ TABLET.SA PO SCH (09:00)
[2016-10-20] MEDS: AMIODARONE HCL 200 MG TABLET PO SCH (09:00)
[2016-10-20] MEDS: LEVOTHYROXINE SODIUM 0.1 MG TABLET PO SCH (09:00)
[2016-10-20 10:28] LABS: ANION GAP 11 (5-19); BLOOD UREA NITROGEN 33 mg/dL (7-20); CALCIUM 10.3 mg/dL (8.4-10.2); CARBON DIOXIDE 36 mmol/L (22-30); CHLORIDE 94 mmol/L (98-107); CREATININE RESULT 0.99 mg/dL (0.52-1.25); GLUCOSE 153 mg/dL (75-110); SODIUM 140.6 mmol/L (137-145)
[2016-10-20 13:50] VITALS: BP 143/52
--- NOTE | 2016-10-21 14:53 | PDOC DISCHARGE SUMMARY ---
General - Admit/Disc Date/PCP Admission Date/Primary Care Provider: 10/15/16 12:05 JORGE MAY MD Discharge Date: 10/20/16 - Discharge Diagnosis (1) CHF exacerbation Is this a current diagnosis for this admission?: YesSummary: acute on chronic diastolic CHF secondary to fluid overload An Ultrasound performed in 2016 showed normal LVEF and diastolic dysfunction patient was discharged on lasix 20 mg po (2) Hypercalcemia Is this a current diagnosis for this admission?: YesSummary: secondary to hyperparathyroidism treatment with Sensipar was initiated and well tolerated (3) Metabolic alkalosis Is this a current diagnosis for this admission?: YesSummary: from overdiuresis during hospital stay improved with gentle hydration - Additional Information Resuscitation Status: Full Code Discharge Activity: Activity As Tolerated, Balance Activity w/Rest, Weigh Daily Home Medications: Amlodipine Besylate [Norvasc 5 mg Tablet] 5 mg PO DAILY 10/15/16 Atorvastatin Calcium [Lipitor 10 mg Tablet] 10 mg PO QHS 10/15/16 Cholecalciferol (Vitamin D3) [Vitamin D3 1000 Unit Tablet] 1,000 unit PO DAILY 10/15/16 Clopidogrel Bisulfate [Plavix 75 mg Tablet] 75 mg PO QAM 10/15/16 Gabapentin [Neurontin 300 mg Capsule] 300 mg PO QAM 10/15/16 Gabapentin [Neurontin] 600 mg PO QHS 10/15/16 Levothyroxine Sodium [Synthroid] 100 mcg PO DAILY 10/15/16 Linaclotide [Linzess] 290 mcg PO DAILY 10/15/16 Amiodarone HCl [Cordarone 200 mg Tablet] 100 mg PO Q12 #60 tablet 10/20/16 Cinacalcet HCl [Sensipar 30 mg Tablet] 30 mg PO BID #60 tablet 10/20/16 Furosemide [Lasix] 20 mg PO DAILY #30 tablet 10/20/16 Glimepiride [Amaryl 1 mg Tablet] 1 mg PO DAILY #0 10/20/16 History of Present Illness Patient complains of: shortness of breath History of Present Illness: GEORGETTE RIVERA is a 89 year old female presents to the emergency department with a 24-hour history of worsening shortness of breath, worsening swelling and weight gain, increased orthopnea and PND. She carries a history of diastolic heart failure and is followed by Dr. Herring as her primary operating room aide who recently discontinued her HCTZ in coordination with her horseradish maker following her hyperparathyroidism and resultant hypercalcemia. They did increase her Lasix dose. Since that time however she has noticed gradual increase in generalized swelling culminating in today's presentation. She normally wears 2 L of oxygen at night but over the last 24 hours has taken to using it continuously with little relief. She reportedly had an NSTEMI in March 2016, echocardiogram at that time had a normal left ventricular systolic function but grade 2 diastolic dysfunction. Hospital Course Hospital Course: see above . Physical Exam Vital Signs: Temp Pulse Resp BP Pulse Ox 97.8 F 50 L 16 143/52 H 100 10/20/16 12:47 10/20/16 12:47 10/20/16 12:47 10/20/16 12:47 10/20/16 12:47 Pulse Oximeter Continuous Start: 10/15/16 12: 10 Freq: RTQ4 Status: Complete Document 10/18/16 04:05 [facility] (Rec: 10/18/16 04:34 [facility] [id number]) Pulse Oximetry Assessment Oxygen Saturation (92-100) 90 Oxygen Delivery Method Room Air Fraction of Inspired Oxygen (FIO2) 21 Equipment Usage Equipment in Use Continuous SpO2 Machine # 14 Intake & Output 10/20/16 10/21/16 10/22/16 00:59 00:59 00:59 Intake Total 2725 825 Output Total 1775 Balance 950 825 Weight 99.6 kg General appearance: PRESENT: no acute distress, well-developed, well-nourished Head exam: PRESENT: atraumatic, normocephalic Eye exam: PRESENT: conjunctiva pink, EOMI, PERRLA. ABSENT: scleral icterus Ear exam: PRESENT: normal external ear exam Mouth exam: PRESENT: moist, tongue midline Neck exam: ABSENT: carotid bruit, JVD, lymphadenopathy, thyromegaly Respiratory exam: PRESENT: clear to auscultation niecy. ABSENT: rales, rhonchi, wheezes Cardiovascular exam: PRESENT: RRR. ABSENT: diastolic murmur, rubs, systolic murmur Pulses: PRESENT: normal dorsalis pedis pul Vascular exam: PRESENT: normal capillary refill GI/Abdominal exam: PRESENT: normal bowel sounds, soft. ABSENT: distended, guarding, mass, organolmegaly, rebound, tenderness Rectal exam: PRESENT: deferred Extremities exam: PRESENT: full ROM. ABSENT: calf tenderness, clubbing, pedal edema Neurological exam: PRESENT: alert, awake, oriented to person, oriented to place , oriented to time, oriented to situation, CN II-XII grossly intact. ABSENT: motor sensory deficit Psychiatric exam: PRESENT: appropriate affect, normal mood. ABSENT: homicidal ideation, suicidal ideation Skin exam: PRESENT: dry, intact, warm. ABSENT: cyanosis, rash Results Laboratory Results: 10/20/16 09:43 10/15/16 10/16/16 10/16/16 13:19 06:12 07:04 Troponin I 0.015 NT-Pro-B Natriuret Pep Cancelled 561 H 10/17/16 10/18/16 05:39 03:50 Troponin I NT-Pro-B Natriuret Pep 486 H 358 10/15/16 08:33 10/20/16 09:43 MCV 91 fl (80-97) 10/15/16 08:33 MCH 30.1 pg (27.0-33.4) 10/15/16 08:33 MCHC 33.2 g/dL (32.0-36.0) 10/15/16 08:33 RDW 14.4 % (11.5-14.0) H 10/15/16 08:33 Seg Neutrophils % 75.5 % (42-78) 10/15/16 08:33 Lymphocytes % 12.8 % (13-45) L 10/15/16 08:33 Monocytes % 7.1 % (3-13) 10/15/16 08:33 Eosinophils % 3.4 % (0-6) 10/15/16 08:33 Basophils % 1.2 % (0-2) 10/15/16 08:33 Absolute Neutrophils 5.7 10^3/uL (1.7-8.2) 10/15/16 08:33 Absolute Lymphocytes 1.0 10^3/uL (0.5-4.7) 10/15/16 08:33 Absolute Monocytes 0.5 10^3/uL (0.1-1.4) 10/15/16 08:33 Absolute Eosinophils 0.3 10^3/uL (0.0-0.6) 10/15/16 08:33 Absolute Basophils 0.1 10^3/uL (0.0-0.2) 10/15/16 08:33 VBG pH 7.39 (7.30-7.42) 10/18/16 03:50 VBG pCO2 73.4 mmHg (35-63) H* 10/18/16 03:50 VBG HCO3 43.5 mmol/L (20-32) H 10/18/16 03:50 VBG Base Excess 14.9 mmol/L 10/18/16 03:50 Chloride 94 mmol/L (98-107) L 10/20/16 09:43 Carbon Dioxide 36 mmol/L (22-30) H 10/20/16 09:43 Anion Gap 11 (5-19) 10/20/16 09:43 Est GFR ( Amer) > 60 (>60) 10/20/16 09:43 Est GFR (Non-Af Amer) 53 (>60) L 10/20/16 09:43 Glucose 153 mg/dL (75-110) H 10/20/16 09:43 Calcium 10.3 mg/dL (8.4-10.2) H 10/20/16 09:43 Magnesium 2.2 mg/dL (1.6-2.3) 10/18/16 03:50 Total Bilirubin 0.7 mg/dL (0.2-1.3) 10/15/16 08:33 AST 24 U/L (14-36) 10/15/16 08:33 ALT 25 U/L (9-52) 10/15/16 08:33 Alkaline Phosphatase 82 U/L (38-126) 10/15/16 08:33 Total Protein 7.3 g/dL (6.3-8.2) 10/15/16 08:33 Albumin 4.2 g/dL (3.5-5.0) 10/15/16 08:33 Lipase 96.7 U/L (23-300) 10/15/16 08:33 Urine Color COLORLESS 10/15/16 09:05 Urine Appearance CLEAR 10/15/16 09:05 Urine pH 7.0 (5.0-9.0) 10/15/16 09:05 Ur Specific [place] 1.004 10/15/16 09:05 Urine Protein NEGATIVE mg/dL (NEGATIVE) 10/15/16 09:05 Urine Glucose (UA) NEGATIVE mg/dL (NEGATIVE) 10/15/16 09:05 Urine Ketones NEGATIVE mg/dL (NEGATIVE) 10/15/16 09:05 Urine Blood NEGATIVE (NEGATIVE) 10/15/16 09:05 Urine Nitrite NEGATIVE (NEGATIVE) 10/15/16 09:05 Ur Leukocyte Esterase NEGATIVE (NEGATIVE) 10/15/16 09:05 Urine WBC (Auto) 2 /HPF 10/15/16 09:05 Urine RBC (Auto) 1 /HPF 10/15/16 09:05 10/15/16 10/15/16 10/15/16 08:33 08:33 13:19 Creatine Kinase 62 CK-MB (CK-2) 1.35 Troponin I < 0.012 0.015 NT-Pro-B Natriuret Pep 564 H 10/16/16 10/16/16 10/17/16 06:12 07:04 05:39 Creatine Kinase CK-MB (CK-2) Troponin I NT-Pro-B Natriuret Pep Cancelled 561 H 486 H 10/18/16 03:50 Creatine Kinase CK-MB (CK-2) Troponin I NT-Pro-B Natriuret Pep 358 Impressions: Chest X-Ray 10/19/16 06:00 IMPRESSION: HEART ENLARGED WITHOUT FAILURE. Resolved small left effusion.
== END 2016-10-20 14:27 | disposition home health service (06) | DRG 291 ==
LOC: ER 06:52 → UNDOADMIN 11:16 → EH 11:16 → 4S 13:06
PROVIDERS: ADMIT Internal Medicine; ATTEND Internal Medicine
PROC: 5A09357 Assistance with Respiratory Ventilation, Less than 24 Consecutive Hours, Continuous Positive Airway Pressure (ICD-10-PCS; principal; 2016-10-18)
DX: I11.0 Hypertensive heart disease with heart failure (principal); J96.00 Acute respiratory failure, unspecified whether with hypoxia or hypercapnia; E87.3 Alkalosis; I50.33 Acute on chronic diastolic (congestive) heart failure; E83.52 Hypercalcemia; E21.3 Hyperparathyroidism, unspecified; E78.5 Hyperlipidemia, unspecified; E11.8 Type 2 diabetes mellitus with unspecified complications; M19.90 Unspecified osteoarthritis, unspecified site; E78.00 Pure hypercholesterolemia, unspecified; D69.6 Thrombocytopenia, unspecified; I25.2 Old myocardial infarction; Z90.49 Acquired absence of other specified parts of digestive tract; Z90.710 Acquired absence of both cervix and uterus; Z79.4 Long term (current) use of insulin; Z79.899 Other long term (current) drug therapy; Z88.6 Allergy status to analgesic agent; Z82.49 Family history of ischemic heart disease and other diseases of the circulatory system
CPT/HCPCS: 36415; 71010; 80048; 80053; 81001; 82550; 82553; 82803; 82962; 83036; 83690; 83735; 83880; 84484; 85025; 85610; 85730; 93005; 93010; 94762; 96374; 99285; G8978-GP; G8979-GP; G8980-GP; J1940; J3490; J7030; S0164

== ENCOUNTER 2017-02-15 17:26 | Inpatient (IN) | payer MEDICARE, BC ==
--- NOTE | 2017-02-15 17:37 | EKG REPORT ---
SEVERITY:- NORMAL ECG - SINUS RHYTHM : Confirmed by: Bushra Bruce MD 15-Feb-2017 17:36:55
--- NOTE | 2017-02-15 17:52 | ER Document Report ---
ED Medical Screen (RME) - General Chief Complaint: Chest Pain Stated Complaint: DIFFICULTY BREATHING Time Seen by Provider: 02/15/17 17:49 Notes: Patient presents with shortness of breath 2 days. She states she has been gaining weight and has had leg swelling. She states she has a history of congestive heart failure and has been hospitalized for this before. She denies any cough or cold symptoms. She is also had some substernal chest pain. TRAVEL OUTSIDE OF THE [place] IN LAST 30 DAYS: No - Related Data Allergies/Adverse Reactions: codeine Allergy (Mild, Verified 02/15/17 17:44) Delusions Past Medical History - Past Medical History Cardiac Medical History: Reports: Hx Congestive Heart Failure, Hx Hypercholesterolemia, Hx Hypertension Pulmonary Medical History: Denies: Hx Asthma, Hx Bronchitis, Hx COPD, Hx Pneumonia Neurological Medical History: Denies: Hx Cerebrovascular Accident, Hx Seizures Endocrine Medical History: Reports: Hx Diabetes Mellitus Type 2, Hx Hypothyroidism Renal/ Medical History: Denies: Hx Peritoneal Dialysis Musculoskeltal Medical History: 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
--- NOTE | 2017-02-15 18:46 | RADIOLOGY REPORT (SQ) ---
EXAM DESCRIPTION: CHEST SINGLE VIEW COMPLETED DATE/TIME: 02/15/2017 6:36 pm REASON FOR STUDY: sob COMPARISON: 10/19/2016 EXAM PARAMETERS: NUMBER OF VIEWS: One view. TECHNIQUE: Single frontal radiographic view of the chest acquired. RADIATION DOSE: NA LIMITATIONS: None. FINDINGS: LUNGS AND PLEURA: No opacities, masses or pneumothorax. No pleural effusion. MEDIASTINUM AND HILAR STRUCTURES: No masses. Contour normal. HEART AND VASCULAR STRUCTURES: Borderline heart size. No failure. BONES: No acute findings. HARDWARE: None in the chest. OTHER: No other significant finding. IMPRESSION: Borderline cardiomegaly with no CHF and no acute pulmonary disease. TECHNICAL DOCUMENTATION: JOB ID: [id number]
--- NOTE | 2017-02-15 19:13 | ER Document Report ---
ED Cardiac - General Chief Complaint: Chest Pain Stated Complaint: DIFFICULTY BREATHING Time Seen by Provider: 02/15/17 17:49 Mode of Arrival: Ambulatory Information source: Relative TRAVEL OUTSIDE OF THE [place] IN LAST 30 DAYS: No - Related Data Allergies/Adverse Reactions: codeine Allergy (Mild, Verified 02/15/17 17:44) Delusions Home Medications: Current Home Medications Lisinopril 10 mg PO DAILY 02/15/17 [History] Potassium Chloride 20 meq PO DAILY 02/15/17 [History] Past Medical History - General Information source: Patient, Relative - Social History Smoking Status: Never Smoker Family History: Reviewed & Not Pertinent - Past Medical History Cardiac Medical History: Reports: Hx Congestive Heart Failure, Hx Hypercholesterolemia, Hx Hypertension Pulmonary Medical History: Denies: Hx Asthma, Hx Bronchitis, Hx COPD, Hx Pneumonia Neurological Medical History: Denies: Hx Cerebrovascular Accident, Hx Seizures Endocrine Medical History: Reports: Hx Diabetes Mellitus Type 2, Hx Hypothyroidism Renal/ Medical History: Denies: Hx Peritoneal Dialysis Musculoskeltal Medical History: Reports Hx Arthritis - GENERALIZED, Reports Hx Muscle Weakness, Reports Hx Musculoskeletal Deformity Psychiatric Medical History: Denies: Hx Depression Past Surgical History: Reports: Hx Cholecystectomy, Hx Hysterectomy - Immunizations Hx Diphtheria, Pertussis, Tetanus Vaccination: Yes Hx Pneumococcal Vaccination: 04/23/13 Review of Systems - Review of Systems Constitutional: No symptoms reported EENT: No symptoms reported Cardiovascular: Chest pain, Orthopnea - chronic 4-5 pillow orthopnea. denies: Syncope, Dizziness, Lightheaded, Edema Respiratory: Short of breath Gastrointestinal: No symptoms reported Genitourinary: No symptoms reported Female Genitourinary: No symptoms reported Musculoskeletal: No symptoms reported Hematologic/Lymphatic: No symptoms reported Neurological/Psychological: No symptoms reported Physical Exam - Vital signs Vitals: Temp Pulse Resp BP Pulse Ox 97.8 F 65 24 H 162/58 H 95 02/15/17 17:42 02/15/17 17:42 02/15/17 17:42 02/15/17 17:42 02/15/17 17:42 - General General appearance: Appears well, Alert - HEENT Head: Normocephalic, Atraumatic Eyes: Normal Pupils: PERRL - Respiratory Respiratory status: No respiratory distress Chest status: Nontender Breath sounds: Normal Chest palpation: Normal - Cardiovascular Rhythm: Regular Heart sounds: Normal auscultation Murmur: No - Abdominal Inspection: Normal Distension: No distension Bowel sounds: Normal Tenderness: Nontender Organomegaly: No organomegaly - Back Back: Normal, Nontender - Extremities General upper extremity: Normal inspection, Nontender, Normal color, Normal ROM , Normal temperature General lower extremity: Normal inspection, Nontender, Normal color, Normal ROM , Normal temperature, Normal weight bearing. No: Diana's sign - Neurological Neuro grossly intact: Yes Cognition: Normal Orientation: AAOx4 [place] Coma Scale Eye Opening: Spontaneous [place] Coma Scale Verbal: Oriented [place] Coma Scale Motor: Obeys Commands [place] Coma Scale Total: 15 Speech: Normal Motor strength normal: LUE, RUE, LLE, RLE Sensory: Normal - Skin Skin Temperature: Warm Skin Moisture: Dry Skin Color: Normal Course - Re-evaluation Re-evalutation: 02/15/17 19:11 Robby mcgowan with a chief complaint of shortness of breath and chest pain. She has a history of congestive heart failure is currently on 40 of Lasix a day. She used to see Dr. Mcguire but now [facility]. She says she is on oxygen 2 L of at night and generally sleeps for 4-5 pillows that has not changed recently she weighed herself on a daily basis and has gained 4-5 pounds in the last 4-5 days. Home health care nurse they discussed that and she did not think she needed double on her Lasix. Denies a history of AR PE or DVT in the past. Says she has been short of breath for a few days but it got really bad last evening and the chest heaviness started at 630 this morning. She said that they went to a skin doctor today and she used her walker like she normally does in and out did not have to stop due to chest pain but did have to stop due to shortness of breath. On examination she was seen and evaluated in the provider in triage area sinus rhythm on EKG with no acute ST segment elevation or depression she is a little bit increased respiratory rate but is not hypoxic and is 95-96% on room air. She is afebrile denies any increased cough or recent history of pneumonia. She is awake alert with a GCS of 15 her lungs are clear abdomen is soft good pulses and perfusion no lower extremity edema she complains of chest pain substernally in nature currently. She took 1 baby aspirin at home getting over 3 more baby aspirin right now. 02/15/17 21:49 EKG 2 nonacute cardiac enzymes negative no real relief with nitro after combination of nitro aspirin GI cocktail and morphine she is telling me she has no chest pain right now. No clinical concern for acute congestive heart failure no clinical concern for PE or dissection. Spoke with the hospitalist can admit her to the hospital for further assessment evaluation observation. For chest pain - Vital Signs Vital signs: Temp Pulse Resp BP Pulse Ox 97.8 F 72 10 L 166/65 H 97 02/15/17 17:42 02/15/17 19:48 02/15/17 20:45 02/15/17 20:31 02/15/17 20:45 - Laboratory Result Diagrams: 02/15/17 19:20 02/15/17 20:21 Laboratory results interpreted by me: 02/15/17 02/15/17 19:20 20:21 RDW 14.2 H Plt Count 89 L Eosinophils % 14.4 H Absolute Eosinophils 0.8 H BUN 29 H Est GFR (Non-Af Amer) 50 L Glucose 111 H Calcium 10.7 H - EKG Interpretation by Me Additional EKG results interpreted by me: 02/15/17 19:13 Shows sinus rhythm at 68 bpm with no acute ST segment elevation or depression Critical Care Note - Critical Care Note Total time excluding time spent on procedures (mins): 55 Discharge - Discharge Clinical Impression: Chest pain Qualifiers: Chest pain type: unspecified Qualified Code(s): R07.9 - Chest pain, unspecified Condition: Stable Disposition: ADMITTED OBSERVATION Admitting Provider: Hospitalist Unit Admitted: Telemetry Referrals: JORGE MAY MD [Primary Care Provider] - Follow up as needed
[2017-02-15] MEDS ORDERED: ASPIRIN 81 MG TABLET, CHEWABLE PO ONE (19:16)
[2017-02-15] MEDS ORDERED: NITROGLYCERIN 0.4 MG/TAB 25 TAB/BOTTLE SL PRN (19:27)
[2017-02-15 19:48] LABS: ABSOLUTE BASOPHILS # (AUTO) 0.1 10^3/uL (0.0-0.2); ABSOLUTE EOSINOPHILS # (AUTO) 0.8 10^3/uL (0.0-0.6); ABSOLUTE LYMPHOCYTES (AUTO) 1.3 10^3/uL (0.5-4.7); ABSOLUTE MONOCYTES (AUTO) 0.5 10^3/uL (0.1-1.4); ABSOLUTE NEUT (AUTO) 3.2 10^3/uL (1.7-8.2); BASOPHILS % (AUTO) 1.1 % (0-2); EOSINOPHILS % (AUTO) 14.4 % (0-6); HEMATOCRIT 41.5 % (36.0-47.0); HGB HCT DIFFERENCE 0.5; LYMPHOCYTES % (AUTO) 21.5 % (13-45); MEAN CORPUSCULAR HEMOGLOBIN 30.2 pg (27.0-33.4); MEAN CORPUSCULAR HGB CONC 33.8 g/dL (32.0-36.0); MEAN CORPUSCULAR VOLUME 89 fl (80-97); MONOCYTES % (AUTO) 8.5 % (3-13); RED BLOOD COUNT 4.65 10^6/uL (3.72-5.28); RED CELL DISTRIBUTION WIDTH 14.2 % (11.5-14.0); SEGMENTED NEUTROPHILS % (AUTO) 54.5 % (42-78); WHITE BLOOD COUNT 5.8 10^3/uL (4.0-10.5)
[2017-02-15 20:49] LABS: ALANINE AMINOTRANSFERASE 19 U/L (9-52); ALBUMIN 3.9 g/dL (3.5-5.0); ALKALINE PHOSPHATASE 87 U/L (38-126); ANION GAP 11 (5-19); ASPARTATE AMINO TRANSFERASE 21 U/L (14-36); BILIRUBIN,DIRECT 0.4 mg/dL (0.0-0.4); BILIRUBIN,TOTAL 0.6 mg/dL (0.2-1.3); BLOOD UREA NITROGEN 29 mg/dL (7-20); CALCIUM 10.7 mg/dL (8.4-10.2); CARBON DIOXIDE 28 mmol/L (22-30); CHLORIDE 102 mmol/L (98-107); CREATININE RESULT 1.03 mg/dL (0.52-1.25); GLUCOSE 111 mg/dL (75-110); POTASSIUM 4.5 mmol/L (3.6-5.0); SODIUM 141.4 mmol/L (137-145)
[2017-02-15] MEDS ORDERED: MORPHINE SULFATE 10 MG/ML INJ IV ONE (21:00)
[2017-02-15] MEDS ORDERED: LIDOCAINE 2% VISCOUS SOLN 20 ML UDCUP PO ONE (21:01)
[2017-02-15] MEDS ORDERED: MAG HYDROX/AL HYDROX/SIMETH SUSP 30 ML UDCUP PO ONE (21:01)
[2017-02-15] MEDS ORDERED: METOCLOPRAMIDE HCL ORAL SOLN 10 MG/10 ML UDCUP PO ONE (21:01)
[2017-02-15 21:05] LABS: TROPONIN I < 0.012 ng/mL
[2017-02-15 22:20] LABS: ADD ON TESTING BLD IN LAB ACKNOWLEDGE
[2017-02-15 22:38] LABS: APPEARANCE,URINE CLEAR; BILIRUBIN,URINE NEGATIVE (NEGATIVE); GLUCOSE, URINE NEGATIVE (NEGATIVE); KETONES,URINE NEGATIVE (NEGATIVE); LEUKOCYTE ESTERASE,URINE TRACE (NEGATIVE); NITRITE,URINE NEGATIVE (NEGATIVE); PROTEIN,URINE NEGATIVE (NEGATIVE); URINE SPECIFIC GRAVITY 1.011
[2017-02-15 22:39] LABS: MAGNESIUM 2.2 mg/dL (1.6-2.3)
[2017-02-15] MEDS ORDERED: DEXTROSE 40% GEL 15 GM TUBE PO PRN ×2 (23:08)
[2017-02-15] MEDS ORDERED: DEXTROSE 50%-WATER 25 GM/50 ML DISP.SYRIN IV PRN ×2 (23:08)
[2017-02-15] MEDS ORDERED: ACETAMINOPHEN 325 MG TABLET PO PRN (23:08)
[2017-02-15] MEDS ORDERED: INSULIN LISPRO 100 UNIT/ML 3 ML VIAL SUBCUT PRN (23:08)
[2017-02-15] MEDS ORDERED: GLUCAGON,HUMAN RECOMB 1 MG INJ IM PRN (23:08)
[2017-02-15] MEDS ORDERED: PROMETHAZINE HCL 25 MG TABLET PO PRN (23:21)
--- NOTE | 2017-02-15 23:47 | PDOC H&P ---
History of Present Illness Admission Date/PCP: 02/15/17 21:52 JORGE MAY MD Cardiology Dr. Chatterjee Endocrinology [facility] Patient complains of: Chest pain, shortness of breath History of Present Illness: GEORGETTE RIVERA is a 89 year old obese female, with known coronary artery disease, having suffered a myocardial infarction last March, without subsequent heart catheterization, but with post event echocardiogram revealing diastolic congestive heart failure, who presents to the emergency room for evaluation of a 3-4 day history of worsening of her mild chronic shortness of breath, along with onset the morning of admission approximately 6:30 AM of pressure-like upper epigastric/lower substernal chest discomfort. Slight decrease in the discomfort with sitting up. Patient has been discussed with emergency room physician who evaluated the patient. Has never had this specific type chest discomfort before. Denies peptic ulcer disease, heartburn, or hiatal hernia. She achieved partial relief in the emergency room after single sublingual nitroglycerin, with complete relief after the addition of aspirin, GI cocktail, and intravenous morphine. Just prior to my seeing her, the chest discomfort recurred, although not as intense as before, according to the patient. Examination in the emergency room did reveal slight increase in the discomfort with sternal compression. Complete relief of her chest discomfort with a second sublingual nitroglycerin. Has had nausea, but no vomiting. No fever or chills, diarrhea or dysuria. Chronic shortness of breath. Wears oxygen 2 L at night. States she has been tested for sleep apnea, with negative results. Normally sleeps on 4-5 pillows, without recent change. Denies underlying COPD or emphysema or asthma, although blood gas last March revealed a PCO2 of 74. Normally takes 40 mg of Lasix daily. Was seen by her home health nurse either today or yesterday, and was told she did not feel that increase of the Lasix dose was necessary. Does think she is gained 4-5 pounds over the last several days. Denies atrial fibrillation or flutter. No history of pulmonary embolus or DVT. No recent long trip with prolonged inactivity, or unusual lower extremity swelling or tenderness; has chronic intermittent swelling of her lower extremities, without recent change in this pattern. Hospitalized on our service the through 20 October of this year, with final diagnoses including CHF exacerbation, along with hypercalcemia, felt secondary to hyperparathyroidism, currently being followed by electrician helper. History and physical and discharge summary have been reviewed. Dictation via voice recognition software. Laboratory results are listed in [employer] and are reviewed. X-ray summary results are listed below, with full report(s) reviewed. . EKG's reviewed compared to prior tracing from October 19 of this year. Social history/personal habits: . Daughter recently moved in with her. Retired. No use of alcohol tobacco or illicit drugs. Allergies/adverse reactions are listed in [employer] and are reviewed. Home medications initially autopopulated into [employer] may not accurately reflect patient's true medications, dosages, and/or frequencies. instrument and control technician to reconcile medications. Unfortunately, patient not certain of all medications/dosages/frequencies. REVIEW OF SYSTEMS: Constitutional: No fever or chills. Eyes: Reading glasses. ENT: No swallowing problems or complaints. Denies hearing loss. Pulmonary: See history and present illness. Cardiovascular: See history and present illness. Gastrointestinal: See history and present illness. Skin: No current complaints, including rashes. Hematologic: Easy bruising. Neurologic: No current complaints, including numbness or tingling. Musculoskeletal: Joint pain from arthritis. Psychiatric: Denies anxiety or depression. Endocrine: No current complaints, including polyuria. Genitourinary: No current complaints, including dysuria. PHYSICAL EXAMINATION: 5 feet 6 inches tall. 91.1 kg. BMI 32.4 kg/m. Blood pressure 151/63. Pulse 60 and regular. 96% saturation on room air. Respirations are 17 and unlabored. Temperature 97.9. Obese otherwise well-developed female appearing a number of years younger than her stated age. Pleasant awake alert and cooperative. Appears perhaps slightly fatigued. Mildly anxious, without agitation. Skin is warm and dry. No grossly obvious evidence of rash in areas of skin examined. No subcutaneous nodules palpated. ENT: Hearing grossly normal to normal conversation. Tongue midline on protrusion pink and slightly tacky. Eyes: No scleral icterus. Pupils equal and reactive to light at 4 mm. [place] conjunctivae. Neck is supple and nontender to gentle active range of motion and palpation. Midline trachea. No palpable thyroid nodule mass enlargement or tenderness. Lymphatic: No palpable cervical or clavicular nodes. Neck and lymphatic exams limited by patient body habitus. Psychiatric: Reasonable insight into acute and chronic medical issues. Oriented to time location and why here. Lungs: Auscultation reveals clear and equal breath sounds bilaterally. No use of accessory respiratory muscles. Cardiovascular: Heart regular rate and rhythm, without gallop murmur or rub. No carotid or abdominal aortic bruits. No ankle edema. Abdomen:soft somewhat obese nontender with positive bowel sounds. Unable to adequately evaluate abdomen for masses or organomegaly due to body habitus. Possible slight increase in chest discomfort with epigastric compression, with definite, though slight, increase with sternal compression. Extremities: No calf tenderness to compression. No grossly obvious visual evidence of calf swelling. Gentle manipulation of lower extremities fails to reveal any obvious evidence of injury or instability to knees hips or ankles. Neurologic: Moves upper extremities grossly normally. Patellar reflexes absent. Dorsiflexion and plantarflexion of feet 5 / 5 and symmetric. Past Medical History Cardiac Medical History: Reports: Congestive Heart Failure - Diastolic, Coronary Artery Disease, Myocardial Infarction - March 2016, Hypertension Denies: Atrial Fibrillation, DVT, Hyperlipidema, Pulmonary Embolism Pulmonary Medical History: Denies: Asthma, Bronchitis, Chronic Obstructive Pulmonary Disease (COPD), Pneumonia, Sleep Apnea - Negative testing for same, per patient EENT Medical History: Reports: Eyes - Reading glasses Denies: Ears, Throat Neurological Medical History: Denies: Hemorrhagic CVA, Ischemic CVA, Seizures Endocrine Medical History: Reports: Diabetes Mellitus Type 2, Hypothyroidism Denies: Diabetes Mellitus Type 1, Hyperthyroidism Renal/ Medical History: Reports: None Malignancy Medical History: Reports: Skin Cancer GI Medical History: Denies: Cirrhosis, Gastroesophageal Reflux Disease, Hepatitis, Peptic Ulcer Disease Musculoskeltal Medical History: Reports: Arthritis - GENERALIZED Skin Medical History: Reports: Other - See malignancy medical history Psychiatric Medical History: Denies: Alcohol Dependency, Depression, General Anxiety Disorder, Substance Abuse, Tobacco Dependency Hematology: Reports: Other - Easy bruising Infectious Medical History: Denies: Hepatitis B, Hepatitis C Past Surgical History Past Surgical History: Reports: Cholecystectomy, Hysterectomy Social History Information Source: Patient, Emergency Med Personnel, [facility] Records Lives with: Family Smoking Status: Never Smoker Frequency of Alcohol Use: None Hx Recreational Drug Use: No Drugs: None Hx Prescription Drug Abuse: No - Advance Directive Resuscitation Status: Full Code Surrogate healthcare decision maker:: Children Family History Family History: Reviewed & Not Pertinent Parental Family History Reviewed: Yes - Parents of congestive heart failure. Children Family History Reviewed: Yes - Daughter is a cancer survivor Sibling(s) Family History Reviewed.: NA Medication/Allergy Home Medications: Amlodipine Besylate [Norvasc 5 mg Tablet] 5 mg PO DAILY 10/15/16 Cholecalciferol (Vitamin D3) [Vitamin D3 1000 Unit Tablet] 1,000 unit PO DAILY 10/15/16 Clopidogrel Bisulfate [Plavix 75 mg Tablet] 75 mg PO QAM 10/15/16 Gabapentin [Neurontin 300 mg Capsule] 300 mg PO QAM 10/15/16 Gabapentin [Neurontin] 600 mg PO QHS 10/15/16 Levothyroxine Sodium [Synthroid] 100 mcg PO DAILY 10/15/16 Linaclotide [Linzess] 290 mcg PO DAILY 10/15/16 Furosemide [Lasix] 20 mg PO DAILY #30 tablet 10/20/16 Glimepiride [Amaryl 1 mg Tablet] 1 mg PO DAILY #0 10/20/16 Lisinopril 10 mg PO DAILY 02/15/17 Potassium Chloride 20 meq PO DAILY 02/15/17 Allergies/Adverse Reactions: codeine Allergy (Mild, Verified 02/15/17 23:48) Delusions Physical Exam Vital Signs: Temp Pulse Resp BP Pulse Ox 97.9 F 74 18 140/54 H 97 02/15/17 23:18 02/15/17 23:18 02/15/17 23:18 02/15/17 23:18 02/15/17 23:18 Results Impressions: Chest X-Ray 02/15/17 17:50 IMPRESSION: Borderline cardiomegaly with no CHF and no acute pulmonary disease. Assessment & Plan - Diagnosis (1) Abnormal urinalysis Is this a current diagnosis for this admission?: YesPlan: Urine culture. We will forego antibiotics at this point in time. (2) Dyspnea Qualifiers: Dyspnea type: unspecified Qualified Code(s): R06.00 - Dyspnea, unspecified Is this a current diagnosis for this admission?: YesPlan: Uncertain specific cause. Her underlying diastolic heart failure may very well be contributing to this, although patient does not appear to be in rufina exacerbation of same. Suspect she may also have underlying COPD, given her prior blood gas results, although patient denies same. Chronically on 2 L oxygen per nasal cannula at night. Negative sleep apnea testing per patient. (3) Precordial chest pain Is this a current diagnosis for this admission?: YesPlan: Suspect this is musculoskeletal and/or GI tract in origin, but given her known coronary artery disease, Patient will be placed in observation bed under chest pain protocol. Patient understands to notify staff should chest pain recur. Serial troponin . Repeat EKG. lipid panel. I have strongly encouraged patient not to get out of bed without notifying staff , to avoid a fall with injury. Knee high SCDs for DVT prophylaxis. Will forego Lovenox or heparin due to thrombocytopenia. Impression and plans were discussed with patient, who concurs. Time spent in evaluation and management of patient: 65 minutes. (4) CKD (chronic kidney disease), stage III Is this a current diagnosis for this admission?: YesPlan: Repeat Chem-7. (5) Diabetes mellitus type 2 in obese Is this a current diagnosis for this admission?: YesPlan: Diabetic cardiac prerenal diet. Accu-Cheks with appropriate sliding scale coverage. Resume home medications as appropriate once these have been determined and reviewed. (6) Generalized osteoarthritis Is this a current diagnosis for this admission?: YesPlan: As needed pain medication. (7) Hypothyroidism Qualifiers: Hypothyroidism type: unspecified Qualified Code(s): E03.9 - Hypothyroidism, unspecified Is this a current diagnosis for this admission?: YesPlan: TSH is pending. Resume home medications as appropriate once these have been determined and reviewed. (8) Thrombocytopenia Is this a current diagnosis for this admission?: YesPlan: Follow-up CBC with differential. - Time Anticipated discharge: Home Within: within 48 hours
[2017-02-16] MEDS: LANSOPRAZOLE 30 MG TAB.RAP.DR PO SCH (06:05)
[2017-02-16 07:22] LABS: ANION GAP 8 (5-19); BLOOD UREA NITROGEN 28 mg/dL (7-20); CALCIUM 10.6 mg/dL (8.4-10.2); CARBON DIOXIDE 31 mmol/L (22-30); CHLORIDE 103 mmol/L (98-107); CHOLESTEROL 230.94 mg/dL (0-200); CREATININE RESULT 1.13 mg/dL (0.52-1.25); Direct HDL 48 mg/dL (>40); GLUCOSE 104 mg/dL (75-110); POTASSIUM 4.6 mmol/L (3.6-5.0); SODIUM 141.7 mmol/L (137-145); TRIGLYCERIDES 139 mg/dL (<150)
[2017-02-16 07:28] LABS: ABSOLUTE EOSINOPHILS # (AUTO) 0.8 10^3/uL (0.0-0.6); ABSOLUTE LYMPHOCYTES (AUTO) 1.4 10^3/uL (0.5-4.7); ABSOLUTE MONOCYTES (AUTO) 0.5 10^3/uL (0.1-1.4); ABSOLUTE NEUT (AUTO) 2.2 10^3/uL (1.7-8.2); BASOPHILS % (AUTO) 0.7 % (0-2); EOSINOPHILS % (AUTO) 16.5 % (0-6); HEMATOCRIT 38.4 % (36.0-47.0); HGB HCT DIFFERENCE 0.6; LYMPHOCYTES % (AUTO) 28.4 % (13-45); MEAN CORPUSCULAR HEMOGLOBIN 30.4 pg (27.0-33.4); MEAN CORPUSCULAR HGB CONC 33.8 g/dL (32.0-36.0); MEAN CORPUSCULAR VOLUME 90 fl (80-97); MONOCYTES % (AUTO) 10.5 % (3-13); RED BLOOD COUNT 4.27 10^6/uL (3.72-5.28); SEGMENTED NEUTROPHILS % (AUTO) 43.9 % (42-78); WHITE BLOOD COUNT 4.9 10^3/uL (4.0-10.5)
[2017-02-16 07:35] LABS: DIRECT LDL 140 mg/dL (<100)
[2017-02-16] MEDS ORDERED: PROMETHAZINE HCL 25 MG TABLET PO PRN (08:27)
[2017-02-16] MEDS: CLOPIDOGREL BISULFATE 75 MG TABLET PO SCH (09:24)
[2017-02-16] MEDS: DOCUSATE SODIUM 100 MG CAPSULE PO SCH ×2 (09:25→17:53)
[2017-02-16] MEDS: ASPIRIN 81 MG TABLET, ENT COATED PO SCH (09:25)
--- NOTE | 2017-02-16 10:52 | PROGRESS NOTE E ---
Progress Note NAME: GEORGETTE RIVERA : 1925 AGE: 89Y DATE: 02/16/2017 ROOM: 527 SUBJECTIVE: The patient is currently lying in bed. She is still quite dyspneic. The patient is unable to fully complete sentences at this time. I had a detailed conversation with the patient and her daughter regarding goals of care and symptoms of heart failure. Overnight, the patient has denied any nausea, vomiting, diarrhea. No dizziness, chest pain. No fevers, chills. The patient has had a bowel movement this morning. The patient does not voice any other concerns at this time. REVIEW OF SYSTEMS: Rest of review of systems is negative. MEDICATIONS: Medications have been reviewed. OBJECTIVE: GENERAL: Patient is an 89-year-old female who is awake, alert, and oriented to person, place, time, and situation. She is verbal, conversational. Does not appear to be in any acute distress. VITAL SIGNS ARE FOLLOWS: Temperature 97.9, pulse 57, respirations 18, blood pressure 112/49, oxygen saturation 98% on 2.5 liters nasal cannula. SKIN: Warm, dry, no rash, not diaphoretic. HEENT: Pupils equal, round, reactive to light and accommodation. Conjunctivae are pink. NECK: JVP is to the level of the right clavicle. HEART: Regular with no murmur or rub. CHEST: Diminished, symmetrical, bilateral basal crackles fine are noted. ABDOMEN: Firm, but no area of focal tenderness. Bowel sounds are present. EXTREMITIES: No clubbing, cyanosis. The patient does have +1 bilateral lower extremity pitting edema. PSYCHIATRIC: Appropriate affect, pleasant mood. DIAGNOSTICS: Lab values are as follows: Hematology on 02/16/2017: WBC 4.9, hemoglobin 13.0, hematocrit 38.4, platelet count 73,000. Chemistry obtained on 02/16/2017: Sodium 141, potassium 3.6, chloride 103, carbon dioxide 31, BUN 28, creatinine 1.13, glucose 104, calcium 10.6. Troponin 0.012. Triglycerides 139, cholesterol 230, LDL 140, VLDL 28, HDL 48. IMPRESSION AND PLAN: 1. [id number] DIASTOLIC CONGESTIVE HEART FAILURE. Will diurese the patient and monitor electrolytes. It appears the patient has had a couple of admissions for this. Will increase the patient's home diuretic demand. I did do a significant amount of teaching with the family regarding this. Will follow. 2. HYPERLIPIDEMIA. Will continue statin. 3. HYPERTENSION. Blood pressures have been in a good range. Will resume the patient's home medications. 4. DEEP VENOUS THROMBOSIS PROPHYLAXIS. Will add BRYSON hose. The patient appears thrombocytopenic, which is a chronic issue for her. 5. THROMBOCYTOPENIA. Will ask the patient if this has ever been evaluated in the outpatient setting. DISPOSITION: The patient is a DO NOT RESUSCITATE/DO NOT INTUBATE as the patient and daughter have expressed the desire for natural . Pending patient's symptomatology and diagnostic findings, will reevaluate in the a.m. The patient will be made inpatient telemetry as the patient's expected length of stay will surpass 2 midnights. TIME SPENT ON THIS FOLLOWUP: Including assessment, plan, physical examination, patient education, and family meeting is 40 minutes. DICTATING PHYSICIAN: INO GIRALDO NP [id number] PHY#: [id number] ID: [id number] JOB#: [id number] ACCT: [id number] cc: >
[2017-02-16] MEDS ORDERED: FUROSEMIDE INJ/PF 40 MG/4 ML SDV IV ONE (11:00)
[2017-02-16] MEDS: GLIMEPIRIDE 1 MG TABLET PO SCH (11:06)
[2017-02-16] MEDS: AMLODIPINE BESYLATE 5 MG TABLET PO SCH (11:07)
[2017-02-16] MEDS: CHOLECALCIFEROL (D3) 1,000 UNIT TABLET PO SCH (11:07)
[2017-02-16] MEDS: LEVOTHYROXINE SODIUM 0.1 MG TABLET PO SCH (11:08)
[2017-02-16] MEDS: POTASSIUM CHLORIDE 10 MEQ TABLET.SA PO SCH (11:08)
[2017-02-16] MEDS: LISINOPRIL 10 MG TABLET PO SCH (11:10)
--- NOTE | 2017-02-16 17:13 | EKG REPORT ---
SEVERITY:- DEFECTIVE ECG - BASELINE ARTIFACTS SINUS RHYTHM NONSPECIFIC T ABNORMALITIES, ANT-LAT LEADS : Confirmed by: Bushra Bruce MD 16-Feb-2017 17:13:30
--- NOTE | 2017-02-16 17:13 | EKG REPORT ---
SEVERITY:- ABNORMAL ECG - Sinus Rhythm BORDERLINE T ABNORMALITIES, ANT-LAT LEADS : Confirmed by: Bushra Bruce MD 16-Feb-2017 17:12:20
--- NOTE | 2017-02-16 21:10 | RADIOLOGY REPORT (SQ) ---
EXAM DESCRIPTION: CTA CHEST COMPLETED DATE/TIME: 02/16/2017 8:52 pm REASON FOR STUDY: chest pain, aortic dissection, pulmonary embolism E03.9 HYPOTHYROIDISM, UNSPECIFI ED R82.90 UNSPECIFIED ABNORMAL FINDINGS IN URINE D69.6 THROMBOCYTOPENIA, UNSPECIFIED COMPARISON: Chest x-ray dated 02/15/2017 TECHNIQUE: CT scan of the chest performed using helical scanning technique with dynamic intravenous contrast injection. Images reviewed with lung, soft tissue and bone windows. Reconstructed coronal and sagittal MPR images reviewed. Additional 3 dimensional post-processing performed to develop Maximal Intensity Projection images (MO P). All images stored on PACS. All CT scanners at this facility use dose modulation, iterative reconstruction, and/or weight based d osing when appropriate to reduce radiation dose to as low as reasonably achievable (ALARA). [facility]: Dose Right [facility]: CareDose [facility]: Dose Right [facility]: Teradose 4D [facility]: [employer] CONTRAST TYPE AND DOSE: contrast/concentration: Isovue 370.00 mg/ml; Total Contrast Delivered: 45.0 ml; Total Saline Delivered: 70.0 ml RENAL FUNCTION: Creatinine 1.13 RADIATION DOSE: Up-to-date CT equipment and radiation dose reduction techniques were employed. CTDIv ol: 5.3 - 21.3 mGy. DLP: 701 mGy-cm. . LIMITATIONS: None. FINDINGS: LUNGS AND PLEURA: No masses, infiltrates, pneumothorax. No pleural effusions, calcificati ons. Small calcified granuloma is identified in the right mid lung field. AORTA AND GREAT VESSELS: No aneurysm or dissection. HEART: No pericardial effusion. PULMONARY ARTERIES: No emboli visualized in the main pulmonary arteries or the segmental branches. HILAR AND MEDIASTINAL STRUCTURES: No identified masses or abnormal nodes. HARDWARE: None in the chest. UPPER ABDOMEN: No significant findings. Limited exam. THYROID AND OTHER SOFT TISSUES: No masses. No adenopathy. BONES: No acute or significant finding. 3D MIPS: Confirm above findings. OTHER: No other significant finding. IMPRESSION: No evidence for pulmonary embolic disease. No acute consolidations or pleural effusions are identified. Other findings as noted above TECHNICAL DOCUMENTATION: JOB ID: [id number] Quality ID # [id number]: Final reports with documentation of one or more dose reduction techniques (e.g., Au tomated exposure control, adjustment of the mA and/or kV according to patient size, use of iterative reconstruction technique) 2010 [facility] [employer]- All Rights Reserved
[2017-02-17 04:27] LABS: HEMATOCRIT 38.2 % (36.0-47.0); HEMOGLOBIN 12.9 g/dL (12.0-15.5); HGB HCT DIFFERENCE 0.5; MEAN CORPUSCULAR HEMOGLOBIN 30.3 pg (27.0-33.4); MEAN CORPUSCULAR HGB CONC 33.7 g/dL (32.0-36.0); MEAN CORPUSCULAR VOLUME 90 fl (80-97); RED BLOOD COUNT 4.24 10^6/uL (3.72-5.28); RED CELL DISTRIBUTION WIDTH 13.9 % (11.5-14.0); WHITE BLOOD COUNT 5.6 10^3/uL (4.0-10.5)
[2017-02-17 04:44] LABS: ANION GAP 6 (5-19); BLOOD UREA NITROGEN 34 mg/dL (7-20); CALCIUM 10.4 mg/dL (8.4-10.2); CARBON DIOXIDE 33 mmol/L (22-30); CHLORIDE 102 mmol/L (98-107); CREATININE RESULT 1.15 mg/dL (0.52-1.25); GLUCOSE 117 mg/dL (75-110); MAGNESIUM 2.2 mg/dL (1.6-2.3); POTASSIUM 4.2 mmol/L (3.6-5.0)
[2017-02-17] MEDS: LANSOPRAZOLE 30 MG TAB.RAP.DR PO SCH (05:42)
[2017-02-17] MEDS: GABAPENTIN 300 MG CAPSULE PO SCH (07:37)
[2017-02-17] MEDS: CLOPIDOGREL BISULFATE 75 MG TABLET PO SCH (07:37)
--- NOTE | 2017-02-17 09:58 | PROGRESS NOTE E ---
Progress Note NAME: GEORGETTE RIVERA : 1925 AGE: 89Y DATE: 02/17/2017 ROOM: 527 SUBJECTIVE: The patient is currently out of bed to the bedside chair. She states she feels much better in comparison to yesterday. She denies any nausea, vomiting, diarrhea. No dizziness or chest pain. No fevers or chills. The patient does have shortness of breath but now it is limited only to exertion. The patient has been afebrile, blood pressure has been in a good range, and the patient does not voice any other concerns at this time. REVIEW OF SYSTEMS: The rest of the review of systems is negative. MEDICATIONS: Medications have been reviewed. OBJECTIVE: GENERAL: The patient is an 89-year-old female who is awake, alert, and oriented to person, place, time, and situation. She is verbal, conversational, does not appear to be in any acute distress. VITAL SIGNS: As follows: Temperature is 98.8, pulse 76, respirations 16, blood pressure 136/51, oxygen saturation is 99% on room air. SKIN: Warm and dry. No rash, not diaphoretic. HEENT: Pupils equal, round, and reactive to light and accommodation. Conjunctivae pink. No JVP. CARDIOVASCULAR: Heart is regular. There is no murmur or rub. CHEST: Clear, symmetrical, unlabored. ABDOMEN: Soft, nontender, nondistended. BACK: No CVA tenderness or sacral edema. EXTREMITIES: No clubbing, cyanosis. The patient does have trace to 1+ bilateral lower extremity edema. PSYCHIATRIC: Appropriate affect. Pleasant mood. DIAGNOSTICS: Lab values are as follows. Hematology obtained on 02/17/2017: WBCs are 5.6, hemoglobin is 12.9, hematocrit is 38.2, and platelet count is 73,000. Chemistry obtained on 02/17/2017: Sodium is 141, potassium 4.2, chloride 102, carbon dioxide 33, BUN 34, creatinine 0.15, glucose 117, calcium is 10.4, magnesium is 2.2. Microbiology: Urine culture obtained on 02/16/2017 reveals Gram-negative rods. IMPRESSION AND PLAN: 1. GRAM-NEGATIVE [place] URINARY TRACT INFECTION. 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 For now, will cover the patient with ertapenem and follow. 2. ACUTE ON CHRONIC DIASTOLIC CONGESTIVE HEART FAILURE. Will diurese the patient and monitor electrolytes. The patient has had a number of admissions for this. Most likely she will need an increase in her home diuretic demand. 3. HYPERLIPIDEMIA. Continue statin. 4. HYPERTENSION. Blood pressure has been in a good range. 5. DVT PROPHYLAXIS. Will add BRYSON hose. The patient is thrombocytopenic; therefore, will defer pharmacological prophylaxis. 6. THROMBOCYTOPENIA. I have discussed this with Dr. Mast who the patient has an appointment with this week; however, she can follow up in 3 months as he has reviewed her records. DISPOSITION: THE PATIENT IS DNR/DNI. Pending the patient's symptomatology and diagnostic findings, the patient will be re-evaluated in the a.m. for discharge. Time spent on this followup, including assessment/plan, physical examination, patient education, is 25 minutes. DICTATING PHYSICIAN: INO GIRALDO NP [id number] PHY#: [id number] ID: [id number] JOB#: [id number] ACCT: [id number] cc: >
[2017-02-17] MEDS ORDERED: FUROSEMIDE INJ/PF 20 MG/2 ML SDV IV ONE (10:00)
[2017-02-17] MEDS: LISINOPRIL 10 MG TABLET PO SCH (10:12)
[2017-02-17] MEDS: POTASSIUM CHLORIDE 10 MEQ TABLET.SA PO SCH (10:12)
[2017-02-17] MEDS: CHOLECALCIFEROL (D3) 1,000 UNIT TABLET PO SCH (10:15)
[2017-02-17] MEDS: ASPIRIN 81 MG TABLET, ENT COATED PO SCH (10:15)
[2017-02-17] MEDS: DOCUSATE SODIUM 100 MG CAPSULE PO SCH ×2 (10:15→17:20)
[2017-02-17] MEDS: AMLODIPINE BESYLATE 5 MG TABLET PO SCH (10:15)
[2017-02-17] MEDS: LEVOTHYROXINE SODIUM 0.1 MG TABLET PO SCH (10:16)
[2017-02-17] MEDS: GLIMEPIRIDE 1 MG TABLET PO SCH (10:16)
[2017-02-17] MEDS: ERTAPENEM SODIUM 1 GM in NORMAL SALINE 50 ML IV SCH (10:16)
[2017-02-17] MEDS ORDERED: MAG HYDROX/AL HYDROX/SIMETH SUSP 30 ML UDCUP PO ONE (18:00)
[2017-02-18] MEDS: LANSOPRAZOLE 30 MG TAB.RAP.DR PO SCH (06:50)
[2017-02-18] MEDS: CLOPIDOGREL BISULFATE 75 MG TABLET PO SCH (07:53)
[2017-02-18] MEDS: GABAPENTIN 300 MG CAPSULE PO SCH (07:53)
[2017-02-18] MEDS: LEVOTHYROXINE SODIUM 0.1 MG TABLET PO SCH (09:49)
[2017-02-18] MEDS: ERTAPENEM SODIUM 1 GM in NORMAL SALINE 50 ML IV SCH (09:49)
[2017-02-18] MEDS: DOCUSATE SODIUM 100 MG CAPSULE PO SCH (09:49)
[2017-02-18] MEDS: CHOLECALCIFEROL (D3) 1,000 UNIT TABLET PO SCH (09:50)
[2017-02-18] MEDS: GLIMEPIRIDE 1 MG TABLET PO SCH (09:50)
[2017-02-18] MEDS: POTASSIUM CHLORIDE 10 MEQ TABLET.SA PO SCH (09:50)
[2017-02-18] MEDS: ASPIRIN 81 MG TABLET, ENT COATED PO SCH (09:50)
[2017-02-18] MEDS: LISINOPRIL 10 MG TABLET PO SCH (09:51)
[2017-02-18] MEDS: AMLODIPINE BESYLATE 5 MG TABLET PO SCH (09:51)
[2017-02-18 11:16] VITALS: BP 120/43
--- NOTE | 2017-02-20 00:09 | DISCHARGE SUMMARY E ---
Discharge Summary NAME: GEORGETTE RIVERA : 1925 AGE: 89Y ADMITTED: 02/16/2017 DISCHARGED: 02/18/2017 CODE STATUS: DO NOT RESUSCITATE, DO NOT INTUBATE with portable DNR. PRIMARY CARE PROVIDER: Rhys Fuchs MD OUTPATIENT SETTER OFF: Dr. Chatterjee. OUTPATIENT COMPUTER FORENSIC EXAMINER: Dr. Mast DISCHARGE DIAGNOSES: 1. Acute on chronic diastolic congestive heart failure. 2. Hyperlipidemia. 3. Hypertension. 4. Chronic thrombocytopenia. 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 DISCHARGE MEDICATIONS: 1. Norvasc 5 mg p.o. daily. 2. Vitamin D3, 1000 International Units p.o. daily. 3. Plavix 75 mg p.o. daily. 4. Neurontin 300 mg p.o. every morning. 5. Neurontin 600 mg p.o. nightly. 6. Amaryl 1 mg p.o. daily. 7. Synthroid 1000 mcg p.o. daily. 8. Linzess 290 mcg p.o. daily. 9. Lisinopril 10 mg p.o. daily. 10. Potassium chloride 20 mEq p.o. daily. 11. Aspirin 81 mg p.o. daily, #30 tablets with 0 refills. 12. Lasix 20 mg p.o. daily at noon, #30 tablets with 0 refills. 13. Lasix 40 mg p.o. every morning, #30 tablets with 0 refills. ACTIVITY: As tolerated. Home health physical therapy. DIET: Heart healthy, diabetic. DIAGNOSTICS: 1. Laboratory values are as follows: a. Hematology obtained on 02/17/2017: WBC 5.6, hemoglobin 12.9, hematocrit 38.2, platelet count 73,000. b. Chemistry obtained on 02/17/2017: Sodium 141, potassium 4.2, chloride 102, carbon dioxide 33, BUN 34, creatinine 1.15, glucose 117, calcium 10.4, magnesium 3.2. Troponin 0.012. Total bilirubin 0.6, AST 21, ALT 19, alkaline phosphatase 87, total protein 7.0, albumin 3.9. TSH 0.71. Triglycerides of 139, cholesterol 230, LDL 140, VLDL 28, HDL 48. c. Urinalysis obtained on 02/15/2017: Color yellow, appearance clear, pH 8.0, specific gravity 1.011, protein negative, glucose negative, ketones negative, occult blood negative, nitrite negative, bilirubin negative, urobilinogen negative, leukocyte esterase trace, WBCs 22, RBCs 1, bacteria trace, epithelial squamous cells 1, ascorbic acid negative. d. Microbiology: Urine culture obtained on 02/16/2017 reveals ESBL E coli. 2. Chest x-ray obtained on 02/15/2017 reveals borderline cardiomegaly. 3. CTA of the abdomen and chest obtained on 02/16/2017 reveals no evidence of pulmonary embolic disease. No acute consolidations or pleural effusions identified. HISTORY OF PRESENT ILLNESS: The patient is a very pleasant, 89-year-old female with a past medical history of diastolic CHF. The patient presented to the emergency department with a chief complaint of chest pain and shortness of breath. The patient has a history of coronary artery disease and actually had an HI last March and elected for medical management. The post-event echo revealed diastolic failure. While in the emergency department, the patient gave a history of 3 to 4 days of worsening of her chronic shortness of breath, along with onset that was especially bad just prior to presentation. The patient also noted pressure-like upper epigastric and lower substernal chest discomfort and a slight decrease with her symptoms when she sat up. The patient achieved partial relief in the emergency department after a sublingual nitroglycerin and complete relief after the addition of an aspirin, GI cocktail and IV morphine. The patient does wear O2 at night at 2L. The patient has had 2 previous admissions this year for heart failure. The patient is currently on a Lasix dosage of 40 mg daily. The patient was referred to the hospitalists for admission and management. HOSPITAL COURSE: The patient was admitted to the continuous telemetry unit. The patient was diuresed with IV Lasix with complete resolution of symptoms. The patient felt that she was at her baseline with her shortness of breath. The patient, who has chronic thrombocytopenia, remained around her baseline. I discussed the case with Dr. Mast. The patient was to have a followup appointment this week; however, given her laboratory findings, he stated the patient could follow up with him in 3 months, therefore, this appointment will be rescheduled. The patient had a urine culture obtained which was consistent with her previous ESBL E coli. The patient had no elevation of white count, no febrile state, no dysuria, hematuria, pyuria. The patient's urine culture was obtained by a clean catch as well. I called and discussed the case with infectious disease at [facility]. I spoke with Dr. Flynn regarding her case. Given that the patient has had the absence of fever, decompensation, leukocytosis, no left shift, no chills and no symptoms of dysuria, it was felt that this was a colonization since it was consistent with previous urinary tract infections. Recommendations were made to forego treatment of the urine culture as the patient most likely did not have an active infection. Recommendations were also made to only obtain a urine culture if the patient was symptomatic or had sepsis. Otherwise, it was felt that the patient most likely will have colonizations in all cultures in the future. I have explained this in detail to the family and the patient who have expressed understanding. PHYSICAL EXAMINATION: GENERAL: On examination, the patient is a well-developed, well-nourished, frail-appearing, 89-year-old female who is awake, alert and oriented to person, place, time and situation. She is verbal, conversational, and does not appear to be in acute distress. VITAL SIGNS: As follows: Temperature 97.6, pulse 58, respirations 14, blood pressure 143/46, oxygen saturation is 100% on 2L nasal cannula. SKIN: Warm and dry. No rash. Not diaphoretic. HEENT: Pupils are equal, round and reactive to light and accommodation. Conjunctivae are pink. There is no JVD. CARDIOVASCULAR SYSTEM: Heart is regular. There is no murmur or rub. CHEST: Clear, symmetrical and unlabored. ABDOMEN: Soft, nontender, nondistended. BACK: No CVA tenderness or sacral edema. EXTREMITIES: No clubbing, cyanosis. The patient does have trace edema. PSYCHIATRIC: Appropriate affect, pleasant mood. DISCHARGE PLANNIN. The patient is advised to follow up with her primary care provider as needed for hospital followup. 2. The patient is advised to keep her appointment with her food mobile driver, Dr. Chatterjee on Monday for hospital followup. The patient was on 40 mg of Lasix a day. She has been added an additional 20 mg of Lasix at noon given the patient's frailty. 3. The patient is to follow up with Dr. Mast in 3 months for chronic thrombocytopenia. TIME SPENT: Time spent on this discharge including assessment, plan, physical examination, patient education, family members and resource alignment was 35 minutes. DICTATING PHYSICIAN: INO GIRALDO NP [id number] PHY#: [id number] ID: [id number] JOB#: [id number] ACCT: [id number] cc:Edyta ANDRES M.D. JOSE ROS, M.D. MICHAEL KENNEDY, NP NAGESH JAYARAM, M.D. >
--- NOTE | 2017-02-25 06:48 | PDOC DISCHARGE SUMMARY ---
General - Admit/Disc Date/PCP Admission Date/Primary Care Provider: 02/16/17 10:25 JORGE MAY MD Discharge Date: 02/18/17 - ADDENDUM - Discharge Diagnosis (1) CKD (chronic kidney disease), stage III Is this a current diagnosis for this admission?: YesSummary: At baseline - Additional Information Resuscitation Status: Full Code Discharge Diet: As Tolerated, Cardiac Discharge Activity: Activity As Tolerated, Balance Activity w/Rest, Weigh Daily Home Medications: Amlodipine Besylate 5 mg PO DAILY 02/23/17 Aspirin [Aspirin EC] 81 mg PO DAILY 02/23/17 Atorvastatin Calcium 20 mg PO QHS 02/23/17 Cholecalciferol (Vitamin D3) [Vitamin D3] 1,000 unit PO DAILY 02/23/17 Clopidogrel Bisulfate [Plavix 75 mg Tablet] 75 mg PO DAILY 02/23/17 Furosemide [Lasix] 40 mg PO DAILY 02/23/17 Gabapentin [Neurontin 300 mg Capsule] 300 mg PO QAM 02/23/17 Gabapentin [Neurontin] 600 mg PO QHS 02/23/17 Glimepiride [Amaryl 1 mg Tablet] 1 mg PO DAILY 02/23/17 Levothyroxine Sodium [Synthroid 0.1 mg Tablet] 0.1 mg PO DAILY 02/23/17 Linaclotide [Linzess] 290 mcg PO DAILY 02/23/17 Lisinopril [Zestril] 10 mg PO DAILY 02/23/17 Potassium Chloride 20 meq PO QAM 02/23/17 History of Present Illness History of Present Illness: GEORGETTE RIVERA is a 89 year old female Physical Exam Vital Signs: Temp Pulse Resp BP Pulse Ox 97.6 F 58 L 14 120/43 L 100 02/18/17 11:10 02/18/17 11:10 02/18/17 11:10 02/18/17 11:10 02/18/17 11:10 Results Laboratory Results: 02/17/17 03:55 02/17/17 03:55 Impressions: Chest X-Ray 02/15/17 17:50 IMPRESSION: Borderline cardiomegaly with no CHF and no acute pulmonary disease. Chest/Abdomen CTA 02/16/17 00:00 IMPRESSION: No evidence for pulmonary embolic disease. No acute consolidations or pleural effusions are identified. Other findings as noted above
== END 2017-02-18 12:38 | disposition home health service (06) | DRG 291 ==
LOC: ER 17:26 → EH 21:52 → UNDOADMOB 21:52 → EH 23:17 → 5 23:40 → OBSVTOIN 02-16 10:25
PROVIDERS: ADMIT Family Medicine; ATTEND Family Medicine
DX: I13.0 Hypertensive heart and chronic kidney disease with heart failure and stage 1 through stage 4 chronic kidney disease, or unspecified chronic kidney disease (principal); I50.33 Acute on chronic diastolic (congestive) heart failure; I11.0 Hypertensive heart disease with heart failure; E11.9 Type 2 diabetes mellitus without complications; N18.3 Chronic kidney disease, stage 3 (moderate); E03.9 Hypothyroidism, unspecified; E78.5 Hyperlipidemia, unspecified; M15.9 Polyosteoarthritis, unspecified; I25.10 Atherosclerotic heart disease of native coronary artery without angina pectoris; Z66 Do not resuscitate; E66.9 Obesity, unspecified; B96.20 Unspecified Escherichia coli [E. coli] as the cause of diseases classified elsewhere; D69.6 Thrombocytopenia, unspecified; Z22.322 Carrier or suspected carrier of Methicillin resistant Staphylococcus aureus; Z79.02 Long term (current) use of antithrombotics/antiplatelets; Z79.899 Other long term (current) drug therapy; I25.2 Old myocardial infarction; Z85.828 Personal history of other malignant neoplasm of skin; Z90.49 Acquired absence of other specified parts of digestive tract; Z90.710 Acquired absence of both cervix and uterus; Z99.81 Dependence on supplemental oxygen; Z68.37 Body mass index [BMI] 37.0-37.9, adult; Z88.6 Allergy status to analgesic agent
CPT/HCPCS: 36415; 71010; 71275; 80048; 80053; 80061; 81001; 82962; 83735; 83880; 84443; 84484; 85025; 85027; 87086; 87088; 87186; 93005; 93010; 94799; 96374; 99291; G0378; J1335; J1940; J2270; J3490

== ENCOUNTER 2017-02-23 04:56 | Inpatient (IN) | payer MEDICARE, BC ==
[2017-02-23] MEDS ORDERED: NORMAL SALINE 1000 ML 500 ML IV ONE (05:17)
--- NOTE | 2017-02-23 05:26 | ER Document Report ---
Doctor's Note Notes: 02/23/17 05:24 I performed a quick triage evaluation of the patient. Patient is a very pleasant 89-year-old female presents with complaint of fever, weakness, diarrhea. Symptoms started yesterday. Temp at home was 101.5. Patient was recent discharge from hospital a few days ago after being admitted for a CHF exacerbation. At that time her urine did grow out ESBL E. coli which she chronically has. She received 1 dose of antibiotics in the hospital was not discharged home on any antibiotics per recommendation of the infectious disease doctor. All this is according to her discharge summary that I read prior to going in the room. Patient now has a fever the diarrhea which is new. She has been very weak and unable to stand today. She denies any chest pain or difficulty breathing. No vomiting. No blood in her stool. No other complaints at this time. She denies any abdominal pain. On exam she has no pain to palpation of her abdomen. Lung miller are clear. Heart is regular rate and rhythm. I will start sepsis workup for the patient being that she had a fever and diarrhea. I will order stool cultures. Will place patient on monitor. Dictation of this chart was performed using voice recognition software; therefore, there may be some unintended grammatical errors.
[2017-02-23 05:46] LABS: HEMATOCRIT 38.1 % (36.0-47.0); HEMOGLOBIN 12.8 g/dL (12.0-15.5); HGB HCT DIFFERENCE 0.3; MEAN CORPUSCULAR HEMOGLOBIN 30.6 pg (27.0-33.4); MEAN CORPUSCULAR HGB CONC 33.5 g/dL (32.0-36.0); MEAN CORPUSCULAR VOLUME 91 fl (80-97); RED BLOOD COUNT 4.18 10^6/uL (3.72-5.28); RED CELL DISTRIBUTION WIDTH 13.8 % (11.5-14.0); WHITE BLOOD COUNT 15.3 10^3/uL (4.0-10.5)
[2017-02-23 05:49] LABS: ALANINE AMINOTRANSFERASE 25 U/L (9-52); ALBUMIN 3.7 g/dL (3.5-5.0); ALKALINE PHOSPHATASE 82 U/L (38-126); ANION GAP 10 (5-19); ASPARTATE AMINO TRANSFERASE 29 U/L (14-36); BILIRUBIN,DIRECT 0.4 mg/dL (0.0-0.4); BILIRUBIN,TOTAL 0.8 mg/dL (0.2-1.3); BLOOD UREA NITROGEN 48 mg/dL (7-20); CALCIUM 10.2 mg/dL (8.4-10.2); CARBON DIOXIDE 31 mmol/L (22-30); CHLORIDE 101 mmol/L (98-107); GLUCOSE 177 mg/dL (75-110); LIPASE 40.4 U/L (23-300); MAGNESIUM 1.9 mg/dL (1.6-2.3); POTASSIUM 4.5 mmol/L (3.6-5.0); SODIUM 141.5 mmol/L (137-145); TOTAL PROTEIN 7.3 g/dL (6.3-8.2)
--- NOTE | 2017-02-23 05:57 | RADIOLOGY REPORT (SQ) ---
EXAM DESCRIPTION: CHEST SINGLE VIEW COMPLETED DATE/TIME: 02/23/2017 5:38 am REASON FOR STUDY: fever COMPARISON: 02/15/2017. CT, 02/16/2017. EXAM PARAMETERS: NUMBER OF VIEWS: One view. TECHNIQUE: Single frontal radiographic view of the chest acquired. RADIATION DOSE: NA LIMITATIONS: None. FINDINGS: LUNGS AND PLEURA: Small atelectasis or scar of the left lower lobe. Prominent interstitiu m. MEDIASTINUM AND HILAR STRUCTURES: No masses. Contour normal. HEART AND VASCULAR STRUCTURES: Borderline cardiac silhouette size. BONES: No acute findings. HARDWARE: None in the chest. OTHER: No other significant finding. IMPRESSION: No acute cardiopulmonary findings. Stable. TECHNICAL DOCUMENTATION: JOB ID: [id number]
[2017-02-23 06:13] LABS: BAND NEUTROPHILS % (MANUAL) 1 % (3-5); BASOPHILS % (MANUAL) 0 % (0-2); EOSINOPHILS % (MANUAL) 3 % (0-6); LYMPHOCYTES % (MANUAL) 6 % (13-45); TOTAL CELLS COUNTED 100
[2017-02-23 06:15] LABS: OVALOCYTES SLIGHT; POIKILOCYTOSIS SLIGHT; POLYCHROMASIA SLIGHT; TEAR DROP CELLS SLIGHT; TOXIC GRANULATION SLIGHT; TOXIC VACUOLATION PRESENT
--- NOTE | 2017-02-23 06:36 | ER Document Report ---
ED General - General Information source: Patient, Relative - daughter TRAVEL OUTSIDE OF THE [place] IN LAST 30 DAYS: No - HPI Associated symptoms: Other - see above <TREV JENKINS - Last Filed: 02/23/17 11:48> <PABLITO MILLER - Last Filed: 02/23/17 11:55> - General Chief Complaint: Fever Stated Complaint: WEAKNESS/DIARRHEA Time Seen by Provider: 02/23/17 06:19 Notes: Patient is an 89 year old female who presents to the ED with complaints of fever (101.5), weakness and diarrhea with onset yesterday. Patients last dose of Tylenol was at 1800 last night. Patients daughter states that she is having a n episode of diarrhea every 2-3 hours and states that it is "uncontrolled". Patient denies nausea or vomiting or any abdominal pain. Patient was recently discharged from the hospital after an admission for CHF exacerbation, she was found with a chronic UTI that grew ESBL E-Coli, she was given IV antibiotics while in the hospital but was not discharged home on any antibiotics. PCP: Dr. Seymour (TREV JENKINS) - Related Data Allergies/Adverse Reactions: codeine Allergy (Mild, Verified 02/15/17 23:48) Delusions Past Medical History - General Information source: Patient, Relative - daughter - Social History Smoking Status: Never Smoker Family History: Reviewed & Not Pertinent - Past Medical History Cardiac Medical History: Reports: Hx Congestive Heart Failure - Diastolic, Hx Coronary Artery Disease, Hx Heart Attack - March 2016, Hx Hypertension Endocrine Medical History: Reports: Hx Diabetes Mellitus Type 2, Hx Hypothyroidism Renal/ Medical History: Denies: Hx Peritoneal Dialysis Malignancy Medical History: Reports: Hx Skin Cancer Musculoskeltal Medical History: 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 denies: Abdominal pain, Nausea, Vomiting Genitourinary: No symptoms reported Female Genitourinary: No symptoms reported Musculoskeletal: No symptoms reported Skin: No symptoms reported Hematologic/Lymphatic: No symptoms reported Neurological/Psychological: See HPI, Weakness <GREGORYTREV - Last Filed: 02/23/17 11:48> Physical Exam - General General appearance: Appears well, Alert In distress: None - HEENT Head: Normocephalic, Atraumatic Eyes: Normal Extraocular movements intact: Yes Pupils: PERRL - Respiratory Respiratory status: No respiratory distress Breath sounds: Normal - Cardiovascular Rhythm: Regular Heart sounds: Normal auscultation Murmur: No - Abdominal Inspection: Obese Distension: No distension Bowel sounds: Normal Tenderness: Nontender - Back Back: Normal - Extremities General upper extremity: Normal inspection, Normal ROM General lower extremity: Normal inspection, Normal ROM. No: Edema - Neurological Neuro grossly intact: Yes - Psychological Associated symptoms: Normal affect, Normal mood - Skin Skin Temperature: Warm Skin Moisture: Dry Skin Color: Normal <GREGORYTREV - Last Filed: 02/23/17 11:48> Course - Laboratory Result Diagrams: 02/23/17 05:15 02/23/17 05:15 - Consults Dr. Martha Duff Time consulted: 11:46 Dr. Best Time consulted: 11:48 <GREGORYTREV - Last Filed: 02/23/17 11:48> - Laboratory Result Diagrams: 02/23/17 05:15 02/23/17 05:15 <PABLITO MILLER - Last Filed: 02/23/17 11:55> - Re-evaluation Re-evalutation: 02/23/17 09:10 The patient has not had any diarrhea. Her lab work shows she is a little dehydrated compared to her discharge on 02/17/2017. CBC shows a leukocytosis with a shift which is new since 02/17/2017. Blood pressure is low with a systolic in the 80s at this time. Reexamination shows some tenderness in the left lower quadrant of her abdomen. She is receiving normal saline at this time. A CT scan of the abdomen and pelvis will be done without contrast. (PABLITO MILLER) - Vital Signs Vital signs: Temp Pulse Resp BP Pulse Ox 97.9 F 17 104/50 L 100 02/23/17 05:08 02/23/17 07:01 02/23/17 07:01 02/23/17 07:01 - Laboratory Laboratory results interpreted by me: 02/23/17 02/23/17 02/23/17 05:15 05:15 06:40 WBC 15.3 H Plt Count 99 L Seg Neuts % (Manual) 84 H Band Neutrophils % 1 L Lymphocytes % (Manual) 6 L Metamyelocytes % 1 H Abs Neuts (Manual) 13.2 H Carbon Dioxide 31 H BUN 48 H Creatinine 1.70 H Est GFR ( Amer) 34 L Est GFR (Non-Af Amer) 28 L Glucose 177 H Ur Leukocyte Esterase TRACE H Urine Ascorbic Acid 20 H - Consults Dr. Martha Duff Reason for consultation: 02/23/17 11:[address] Duff said to call Dr. Best. (TREV JENKINS) Dr. Best Reason for consultation: 02/23/17 11:48 Discussed patient. Patient is accepted for admission. (TREV JENKINS) Discharge <TREV JENKINS - Last Filed: 02/23/17 11:48> - Discharge Admitting Provider: Hospitalist Unit Admitted: Medical Floor <PABLITO MILLER - Last Filed: 02/23/17 11:55> - Discharge Clinical Impression: C. difficile colitis Fever Qualifiers: Fever type: unspecified Qualified Code(s): R50.9 - Fever, unspecified Leukocytosis Qualifiers: Leukocytosis type: unspecified Qualified Code(s): D72.829 - Elevated white blood cell count, unspecified Condition: Stable Disposition: ADMITTED INPATIENT Referrals: JORGE MAY MD [Primary Care Provider] - Follow up as needed Scribe Attestation: 02/23/17 11:55 I personally performed the services described in the documentation, reviewed and edited the documentation which was dictated to the scribe in my presence, and it accurately records my words and actions. (PABLITO MILLER) Scribe Documentation - Scribe Written by Eulogio:: eulogio Jerez, 02/23/2017, [id number] acting as scribe for :: Christiano <TREV JENKINS - Last Filed: 02/23/17 11:48>
[2017-02-23 07:01] LABS: APPEARANCE,URINE SLIGHTLY-CLOUDY; BILIRUBIN,URINE NEGATIVE (NEGATIVE); GLUCOSE, URINE NEGATIVE (NEGATIVE); KETONES,URINE NEGATIVE (NEGATIVE); LEUKOCYTE ESTERASE,URINE TRACE (NEGATIVE); NITRITE,URINE NEGATIVE (NEGATIVE); PROTEIN,URINE NEGATIVE (NEGATIVE); URINE SPECIFIC GRAVITY 1.017; UROBILINOGEN,URINE NEGATIVE mg/dL (<2.0)
[2017-02-23] MEDS ORDERED: NORMAL SALINE 500 ML IV ONE (07:12)
[2017-02-23] MEDS ORDERED: PIPERACILLIN/TAZOBACTAM 3.375 GM VIAL IV ONE (09:11)
--- NOTE | 2017-02-23 10:20 | RADIOLOGY REPORT (SQ) ---
EXAM DESCRIPTION: CT ABD/PELVIS NO ORAL OR IV COMPLETED DATE/TIME: 02/23/2017 9:44 am REASON FOR STUDY: LLQ pain, leukocytosis, hypotension, fever COMPARISON: CT lumbar spine 04/13/2016 CT angio chest 02/16/2017 [facility] radiographs 04/17/2016, 04/20/2016 TECHNIQUE: CT scan of the abdomen and pelvis performed without intravenous or oral contrast. Images reviewed with lung, soft tissue, and bone windows. Reconstructed coronal and sagittal MPR images revi ewed. All images stored on PACS. All CT scanners at this facility use dose modulation, iterative reconstruction, and/or weight based d osing when appropriate to reduce radiation dose to as low as reasonably achievable (ALARA). [facility]: Dose Right [facility]: CareDose [facility]: Dose Right [facility]: Teradose 4D [facility]: [employer] RADIATION DOSE: Up-to-date CT equipment and radiation dose reduction techniques were employed. CTDIv ol: 18.9 mGy. DLP: 946 mGy-cm.mGy. LIMITATIONS: No oral contrast FINDINGS: LOWER CHEST: Lung bases are clear. Moderate size retrocardiac hiatal hernia NON-CONTRASTED LIVER, SPLEEN, ADRENALS: Evaluation limited by lack of IV contrast. No identified sign ificant masses. PANCREAS: No masses. No peripancreatic inflammatory changes. GALLBLADDER: Surgically absent RIGHT KIDNEY AND URETER: No suspicious masses. Assessment limited by lack of IV contrast. No signif icant calcifications. No hydronephrosis or hydroureter. LEFT KIDNEY AND URETER: No suspicious masses. Assessment limited by lack of IV contrast. 3 x 6 mm c alcification, left lower pole kidney likely intrarenal nonobstructive stone best shown on sagittal im age 81 and axial image 35. No ureteral stones. No hydronephrosis or hydroureter. AORTA AND RETROPERITONEUM: No aneurysm. No retroperitoneal masses or adenopathy. BOWEL AND PERITONEAL CAVITY: No oral contrast. No free intraperitoneal air or fluid. No evidence of bowel obstruction. There are sigmoid colon diverticuli without CT signs of acute diverticulitis. APPENDIX: Surgically absent PELVIS, BLADDER, AND ABDOMINAL WALL:Post hysterectomy. Normal size postmenopausal ovaries. No free pelvic fluid. No pelvic adenopathy. BONES: No significant findings. OTHER: No other significant finding. IMPRESSION: Sigmoid colon diverticuli without CT signs of acute diverticulitis. TECHNICAL DOCUMENTATION: JOB ID: [id number] Quality ID # [id number]: Final reports with documentation of one or more dose reduction techniques (e.g., Au tomated exposure control, adjustment of the mA and/or kV according to patient size, use of iterative reconstruction technique) 2010 [employer]- All Rights Reserved
[2017-02-23] MEDS ORDERED: METRONIDAZOLE 500 MG/NS RTU 100 ML IV ONE (11:41)
[2017-02-23] MEDS ORDERED: VANCOMYCIN HCL INJ 500 MG VIAL PO ONE (11:51)
[2017-02-23] MEDS: METRONIDAZOLE 500 MG TABLET PO SCH ×2 (12:22→17:14)
[2017-02-23] MEDS ORDERED: LACTOBACILLUS ACIDOPHILUS 250 MG TAB PO ONE (12:30)
[2017-02-23] MEDS ORDERED: LEVOTHYROXINE SODIUM 0.1 MG TABLET PO ONE (14:30)
[2017-02-23] MEDS: HEPARIN SOD (PORCINE) 5,000 UNIT/ML 1 ML SYRINGE SUBCUT SCH ×2 (15:35→21:25)
--- NOTE | 2017-02-23 16:37 | HISTORY AND PHYSICAL E ---
History and Physical NAME: GEORGETTE RIVERA : 1925 AGE: 89Y ADMITTED: 02/23/2017 ROOM: 537 CODE STATUS: DO NOT RESUSCITATE/DO NOT INTUBATE WITH PORTABLE DNR. PRIMARY CARE PROVIDER: Rhys May M.D. OUTPATIENT RETAIL ACCOUNT REPRESENTATIVE: Dr. Mast OUTPATIENT SPEECH PROFESSOR: Dr. Chatterjee CHIEF COMPLAINT: Diarrhea and weakness. HISTORY OF PRESENT ILLNESS: The patient is a very pleasant 89-year-old female with a past medical history of chronic diastolic dysfunction and hypertension that is well known to the hospitalist service. The patient presented to the emergency department with a chief complaint of persistent diarrhea and subsequent weakness. The patient was just on our service from 02/16/2017 through 02/18/2017 due to an exacerbation of CHF. The patient, at that time, improved, did have complete symptom resolution, and was doing very well at home until 24 hours ago when she developed profuse diarrhea with fever and weakness. Therefore, the patient was brought into the emergency department by her daughter. Upon presentation to the emergency department, the patient was given a dose of Zosyn for her white count and subjective fevers and previous history of UTIs. However, workup revealed the patient's serology was positive for C. difficile toxin, and the patient has been referred to the hospitalist for admission and management. During the patient's previous stay, she did have a urine culture that was positive for ESBL. However, discussion with Infectious Disease at [facility] recommendations were that this was indeed a colonization and that this should not be treated and the patient's urine should not be cultured unless the patient is symptomatic in the future. Also, recommendations were made to avoid antibiotic therapy unless absolutely necessary. PAST MEDICAL HISTORY: Remarkable for: 1. Chronic diastolic congestive heart failure. 2. Hyperlipidemia. 3. Hypertension. 4. Chronic thrombocytopenia. 5. 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 7. Diabetes mellitus type 2. 8. Peripheral neuropathy. 9. Hypothyroidism. 10. Chronic constipation. HOME MEDICATIONS: Include: 1. Norvasc 5 mg p.o. daily. 2. Aspirin 81 mg p.o. daily. 3. Vitamin D3 1000 IU p.o. daily. 4. Plavix 75 mg p.o. q. a.m. 5. Lasix 40 mg p.o. q. a.m. 6. Lasix 20 mg p.o. at noon. 7. Neurontin 300 mg p.o. q. a.m. 8. Neurontin 600 mg p.o. q. hour of sleep. 9. Amaryl 1 mg p.o. daily. 10. Synthroid 100 mcg p.o. daily. 11. Linzess 290 mcg p.o. daily. 12. Lisinopril 10 mg p.o. daily. 13. Potassium chloride 20 mEq daily. SOCIAL HISTORY: The patient currently resides at home with her daughter who is her primary custom wood stair builder. The patient herself is retired. Her surrogate decision maker would Estefanía who is her daughter who may be reached at [phone]. The patient has no history of alcohol abuse, no history of tobacco or illicit drug use. FAMILY MEDICAL HISTORY: Positive for longevity. However, the patient's parents eventually did of CHF. The patient does have a daughter who is a cancer survivor. The patient has no siblings. REVIEW OF SYSTEMS: CONSTITUTIONAL: The patient denies any loss of appetite, but admits to fevers, chills, dizziness, and weakness. INTEGUMENTARY: The patient denies any diaphoresis, rashes, bruising, or itching. HEENT: Denies any vision change, hearing loss, nasal drainage, sore throat, headache. CARDIOVASCULAR SYSTEM: Denies any shortness of breath, chest pain, edema, heart palpitations. RESPIRATORY: Denies any cough, sputum production, hemoptysis. GASTROINTESTINAL: Denies any nausea, vomiting. No hemoptysis, constipation, melena, hematochezia. Positive for diarrhea and bloating. GENITOURINARY: Denies any hematuria, pyuria, dysuria. MUSCULOSKELETAL: Denies any acute joint pains, but does have chronic neuropathy. NEUROLOGICAL: No seizures, tremors, loss of consciousness. HEMATOLOGICAL: Denies any rufina bleeding or easy bruising. ENDOCRINE: Denies any recent weight changes. No episodes of hypoglycemia. PSYCHIATRIC: Denies suicidal/homicidal ideations. Rest of review of the other organ systems is negative. PHYSICAL EXAMINATION: GENERAL: On examination, the patient is a well-developed, well-nourished, very pleasant 89-year-old female who is awake, alert, and oriented to person, place, time, and situation. She is verbal, conversational, ambulatory, does not appear to be in any acute distress. VITAL SIGNS: Temperature is 97.6, pulse 58, respirations 14, blood pressure 143/46, oxygen saturation is 100% on 2 L nasal cannula. SKIN: Warm and dry. No rash. She is not diaphoretic. HEENT: Pupils equal, round, and reactive to light and accommodation. Conjunctiva is pink. Sclera is nonicteric. There are no mouth lesions. Tongue is midline. NECK: Supple. No JVD. No palpable lymphadenopathy or thyromegaly. CARDIOVASCULAR SYSTEM: Heart is regular. There is no murmur or rub. CHEST: Clear, symmetrical, unlabored. ABDOMEN: Nontender. Bowel sounds are present. It is distended. Evidence of gas. BACK: No CVA tenderness or sacral edema. EXTREMITIES: No clubbing, cyanosis, edema, or peripheral signs of embolization, +2 pedal pulses noted bilaterally. The patient normally has at least trace edema. PSYCHIATRIC: Appropriate affect, pleasant mood. DIAGNOSTICS: Lab values are as follows: Hematology obtained on 02/25/2017: WBCs are 15.3, hemoglobin is 12.8, hematocrit is 38.1, platelet count is 99,000. Chemistry obtained on 02/23/2017: Sodium is 141, potassium 4.5, chloride is 101, carbon dioxide 31, BUN 48, creatinine is 1.70, glucose 177, calcium is 10.2, magnesium is 1.9, bilirubin is 0.8. AST 29, ALT is 25, Alk phos 82, total protein 7.3, albumin 3.7. Lipase is 40.4. Serology obtained on 02/23/2017 is positive. Blood cultures obtained on 02/23/2017 are pending. Stool culture obtained on 02/23/2017 is pending. IMPRESSION AND PLAN: 1. C. difficile colitis. The patient has never had C. difficile in the past most likely due to recent antibiotic use. Will start the patient on probiotic therapy, add yogurt to each tray, and start the patient on oral Flagyl given that she is a novice to this. There is no documented benefit of dual therapies. 2. Sepsis secondary to number one. The patient's blood pressures have improved. Will repeat white count in the a.m. and monitor. 3. Acute renal failure, most likely just prerenal azotemia secondary to dehydration. Will gently hydrate the patient given her history of heart failure and follow. 4. Chronic diastolic dysfunction. Will hold the patient's home medications due to hypotensive and monitor for evidence of volume overload and follow. 5. Chronic thrombocytopenia. This is followed outpatient by Dr. Mast. 6. Hyperlipidemia. Continue statin. 7. Hypertension. The patient is actually hypotensive at this time. Will follow. 8. Diabetes mellitus type 2. Will continue the patient's home Amaryl. 9. Hypothyroidism. Will continue Synthroid. DISPOSITION: The patient is a DO NOT RESUSCITATE/DO NOT INTUBATE WITH A PORTABLE DNR. Pending patient's symptomatology and diagnostic findings, will re-evaluate in the a.m. Will admit the patient to inpatient medical as the patient's expected length of stay will surpass 2 midnights. Time spent on this admission including assessment, plan, physical examination, patient education, and family meeting, review of previous records is 40 minutes. DICTATING PHYSICIAN: INO GIRALDO NP [id number] PHY#: [id number] ID: [id number] JOB#: [id number] ACCT: [id number] cc:RHYS MYA M.D. MICHELLE GUARDADO M.D. >
[2017-02-23] MEDS: LACTOBACILLUS ACIDOPHILUS 250 MG TAB PO SCH (17:13)
[2017-02-23] MEDS: GABAPENTIN 300 MG CAPSULE PO SCH (21:29)
[2017-02-24] MEDS: METRONIDAZOLE 500 MG TABLET PO SCH ×4 (01:47→18:12)
[2017-02-24 05:49] LABS: HEMATOCRIT 33.8 % (36.0-47.0); HEMOGLOBIN 11.4 g/dL (12.0-15.5); HGB HCT DIFFERENCE 0.4; MEAN CORPUSCULAR HEMOGLOBIN 30.6 pg (27.0-33.4); MEAN CORPUSCULAR HGB CONC 33.7 g/dL (32.0-36.0); MEAN CORPUSCULAR VOLUME 91 fl (80-97); RED BLOOD COUNT 3.72 10^6/uL (3.72-5.28); RED CELL DISTRIBUTION WIDTH 14.1 % (11.5-14.0); WHITE BLOOD COUNT 11.8 10^3/uL (4.0-10.5)
[2017-02-24] MEDS: HEPARIN SOD (PORCINE) 5,000 UNIT/ML 1 ML SYRINGE SUBCUT SCH (05:55)
[2017-02-24 06:02] LABS: ANION GAP 10 (5-19); BLOOD UREA NITROGEN 49 mg/dL (7-20); CALCIUM 9.6 mg/dL (8.4-10.2); CARBON DIOXIDE 27 mmol/L (22-30); CHLORIDE 105 mmol/L (98-107); CREATININE RESULT 1.64 mg/dL (0.52-1.25); GLUCOSE 134 mg/dL (75-110); MAGNESIUM 2.2 mg/dL (1.6-2.3); POTASSIUM 3.7 mmol/L (3.6-5.0); SODIUM 141.5 mmol/L (137-145)
[2017-02-24] MEDS ORDERED: NORMAL SALINE 1000 ML 1,000 ML IV PRN ×2 (06:58→07:54)
[2017-02-24] MEDS ORDERED: DEXTROSE 40% GEL 15 GM TUBE PO PRN ×2 (07:55)
[2017-02-24] MEDS ORDERED: INSULIN LISPRO 100 UNIT/ML 3 ML VIAL SUBCUT PRN (07:55)
[2017-02-24] MEDS ORDERED: DEXTROSE 50%-WATER 25 GM/50 ML DISP.SYRIN IV PRN ×2 (07:55)
[2017-02-24] MEDS ORDERED: GLUCAGON,HUMAN RECOMB 1 MG INJ IM PRN (07:55)
[2017-02-24] MEDS: LEVOTHYROXINE SODIUM 0.1 MG TABLET PO SCH (08:09)
[2017-02-24] MEDS: POTASSIUM CHLORIDE 10 MEQ TABLET.SA PO SCH (08:09)
[2017-02-24] MEDS: GABAPENTIN 300 MG CAPSULE PO SCH ×2 (08:09→21:17)
[2017-02-24] MEDS: GLIMEPIRIDE 1 MG TABLET PO SCH (08:12)
--- NOTE | 2017-02-24 08:15 | EKG REPORT ---
SEVERITY:- BORDERLINE ECG - SINUS RHYTHM BORDERLINE T WAVE ABNORMALITIES : Confirmed by: Deon Clancy MD 24-Feb-2017 08:15:20
--- NOTE | 2017-02-24 09:06 | PROGRESS NOTE E ---
Progress Note NAME: GEORGETTE RIVERA : 1925 AGE: 89Y DATE: 02/24/2017 ROOM: 537 SUBJECTIVE: The patient is currently sitting up in bed. She states that she does feel better today than she did when she came in yesterday. The patient has had no further diarrhea. She denies any nausea, shortness of breath, dizziness, or chest pain. No fever or chills. The patient states that she does feel quite weak, however, she feels improved in comparison. The patient has been afebrile. Her blood pressure has been in a good range. The patient does not voice any other concerns at this time. REVIEW OF SYSTEMS: Rest of the review of systems negative. MEDICATIONS: Have been reviewed. OBJECTIVE: GENERAL: The patient is an 89-year-old female who is awake, alert, and oriented to person, place, time, and situation. She is verbal, conversational, and does not appear to be in acute distress. VITAL SIGNS: Temperature 98.7, pulse 64, respirations 19, blood pressure 110/46, oxygen saturation is 98% on 2 L nasal cannula. SKIN: Warm and dry. No rash. Not diaphoretic. She is a little pale but does have a little more color than yesterday. HEENT: Pupils equal, round, reactive to light and accommodation. Conjunctivae are pink. There is no JVP. CARDIOVASCULAR: Heart is regular. There is no murmur or rub. CHEST: Clear, symmetrical, unlabored. ABDOMEN: Soft, nontender, nondistended. BACK: No CVA tenderness or sacral edema. EXTREMITIES: No clubbing, cyanosis, or edema. PSYCHIATRIC: Appropriate affect. Pleasant mood. DIAGNOSTICS: Lab values are as follows: Hematology obtained on 02/24/2017: WBCs are 11.8, hemoglobin is 11.4, hematocrit is 33.8, platelet count is 86,000. Chemistry obtained on 02/24/2017: Sodium is 141, potassium 3.7, chloride is 105, carbon dioxide 27, BUN 49, creatinine 1.64, glucose 34, calcium 9.6, magnesium is 2.2. IMPRESSION AND PLAN: 1. C. DIFFICILE COLITIS. Will continue oral Flagyl given that this is the patient's first occurrence. She has responded very well to this. No further diarrhea. Continue probiotic therapy. Yogurt on each tray. There is no documented benefit to dual therapies with vancomycin. 2. SEPSIS SECONDARY TO #1. The patient's blood pressures overall have improved. CBC has improved as well. Will follow. 3. ACUTE RENAL FAILURE MOST LIKELY PRERENAL AZOTEMIA SECONDARY TO DEHYDRATION Will gently hydrate the patient given her history of heart failure. Will monitor this closely. 4. CHRONIC DIASTOLIC DYSFUNCTION. Will hold the patient's home medications due to her acute kidney injury but will begin to resume Norvasc. 5. CHRONIC THROMBOCYTOPENIA. Patient is followed outpatient by Dr. Mast. Relatively stable. 6. HYPERLIPIDEMIA. Will continue statin. 7. HYPERTENSION. The patient is actually still slightly hypotensive but much improved. Will slowly resume her home medications and hydrate. 8. DIABETES MELLITUS TYPE 2. Will continue the patient's home Amaryl as well as sliding scale coverage. 9. HYPOTHYROIDISM. Will continue Synthroid. DISPOSITION: The patient is a DO NOT RESUSCITATE/DO NOT INTUBATE with portable DNR. Pending patient's symptomatology and diagnostic findings, will reevaluate in the a.m. Time spent on this followup including assessment, plan, physical examination, patient education, and review of previous records is 25 minutes. DICTATING PHYSICIAN: INO GIRALDO NP [id number] PHY#: [id number] ID: [id number] JOB#: [id number] ACCT: [id number] cc: >
[2017-02-24] MEDS ORDERED: (PENDING PHARMACY ID) (Cholecalciferol (Vitamin D3) [Vitamin D3] 1,000 UNIT) PO SCH (10:00)
[2017-02-24] MEDS: ASPIRIN 81 MG TABLET, ENT COATED PO SCH (10:49)
[2017-02-24] MEDS: CLOPIDOGREL BISULFATE 75 MG TABLET PO SCH (10:49)
[2017-02-24] MEDS: AMLODIPINE BESYLATE 5 MG TABLET PO SCH (10:50)
[2017-02-24] MEDS: CHOLECALCIFEROL (D3) 1,000 UNIT TABLET PO SCH (10:50)
[2017-02-24] MEDS: LACTOBACILLUS ACIDOPHILUS 250 MG TAB PO SCH ×2 (10:55→18:11)
[2017-02-25] MEDS: METRONIDAZOLE 500 MG TABLET PO SCH ×4 (01:15→18:56)
[2017-02-25] MEDS ORDERED: ACETAMINOPHEN 325 MG TABLET PO PRN (02:16)
[2017-02-25 05:42] LABS: ANION GAP 7 (5-19); BLOOD UREA NITROGEN 37 mg/dL (7-20); CALCIUM 9.9 mg/dL (8.4-10.2); CARBON DIOXIDE 27 mmol/L (22-30); CHLORIDE 107 mmol/L (98-107); CREATININE RESULT 1.01 mg/dL (0.52-1.25); GLUCOSE 135 mg/dL (75-110); MAGNESIUM 2.2 mg/dL (1.6-2.3); POTASSIUM 4.1 mmol/L (3.6-5.0); SODIUM 141.3 mmol/L (137-145)
[2017-02-25] MEDS: POTASSIUM CHLORIDE 10 MEQ TABLET.SA PO SCH (07:53)
[2017-02-25] MEDS: LEVOTHYROXINE SODIUM 0.1 MG TABLET PO SCH (07:53)
[2017-02-25] MEDS: GLIMEPIRIDE 1 MG TABLET PO SCH (07:53)
[2017-02-25] MEDS: GABAPENTIN 300 MG CAPSULE PO SCH ×2 (07:54→22:08)
--- NOTE | 2017-02-25 08:37 | PROGRESS NOTE E ---
Progress Note NAME: GEORGETTE RIVERA : 1925 AGE: 89Y DATE: 02/25/2017 ROOM: 537 SUBJECTIVE: The patient is currently lying in bed. She states that she feels almost back to baseline, still a little weak. She denies any nausea, vomiting, diarrhea. No shortness of breath, dizziness, chest pain. No fevers, chills. Patient has been afebrile. Blood pressure has been in a good range. The patient does not voice any other concerns at this time. REVIEW OF SYSTEMS: Rest of review of systems negative. MEDICATIONS: Medications have been reviewed. OBJECTIVE: GENERAL: The patient is an 89-year-old female who is awake, alert, and oriented to person, place, time, and situation. She is verbal, conversational, does not appear to be in any acute distress. VITAL SIGNS: Temperature is 97.7, pulse 66, respirations 15, blood pressure is 124/55, oxygen saturation 94% on room air. SKIN: Warm and dry. No rash. Not diaphoretic. HEENT: Pupils equal, round, reactive to light and accommodation. Conjunctiva pink. No JVP. CARDIOVASCULAR SYSTEM: Heart is regular. There is no murmur or rub. CHEST: Clear, symmetrical, unlabored. ABDOMEN: Soft, nontender, nondistended. BACK: No CVA tenderness or sacral edema. EXTREMITIES: No clubbing, cyanosis, edema. DIAGNOSTICS: Lab values are as follows: Chemistry obtained on 02/25/2017: Sodium is 141, potassium 4.1, chloride is 107, carbon dioxide 27, BUN 37, creatinine is 1.01. Glucose 135, calcium is 9.9, magnesium is 2.2. IMPRESSION AND PLAN: 1. C. DIFFICILE COLITIS. Continue oral Flagyl. The patient has had an excellent response. No further episodes of diarrhea. Continue probiotic therapy as well. Yogurt on each tray. 2. SEPSIS SECONDARY TO NUMBER 1. Blood pressures overall have improved. CBC has improved as well. Will follow. 3. ACUTE ON STAGE 3 CHRONIC KIDNEY DISEASE. MOST LIKELY, IT WAS PRERENAL AZOTEMIA. The patient had been gently hydrated. Will discontinue IV fluids and monitor closely. 4. CHRONIC DIASTOLIC DYSFUNCTION. Will resume the patient's home medications tomorrow as the patient does appear optivolemic. 5. CHRONIC THROMBOCYTOPENIA. The patient is followed outpatient by Dr. Mast, relatively stable. 6. HYPERLIPIDEMIA. Will continue statin. 7. HYPERTENSION. The patient's blood pressures overall are much improved. Have resumed one of her home blood pressure medications already. 8. DIABETES MELLITUS TYPE 2. Continue Amaryl and sliding scale coverage. 9. HYPOTHYROIDISM. Continue Synthroid. DISPOSITION: The patient is a DO NOT RESUSCITATE/DO NOT INTUBATE WITH PORTABLE DNR. Pending patient's symptomatology and diagnostic findings, will re-evaluate in the a.m. for discharge. Time spent on this followup including assessment, plan, physical examination, patient education, and family discussion is 25 minutes. DICTATING PHYSICIAN: INO GIRALDO NP [id number] PHY#: [id number] ID: [id number] JOB#: [id number] ACCT: [id number] cc: >
[2017-02-25] MEDS ORDERED: FUROSEMIDE 40 MG TABLET PO SCH (10:00)
[2017-02-25] MEDS: AMLODIPINE BESYLATE 5 MG TABLET PO SCH (10:19)
[2017-02-25] MEDS: CHOLECALCIFEROL (D3) 1,000 UNIT TABLET PO SCH (10:21)
[2017-02-25] MEDS: LISINOPRIL 10 MG TABLET PO SCH (10:21)
[2017-02-25] MEDS: ASPIRIN 81 MG TABLET, ENT COATED PO SCH (10:21)
[2017-02-25] MEDS: CLOPIDOGREL BISULFATE 75 MG TABLET PO SCH (10:22)
[2017-02-25] MEDS: LACTOBACILLUS ACIDOPHILUS 250 MG TAB PO SCH ×2 (10:22→18:56)
[2017-02-25] MEDS ORDERED: ATORVASTATIN CALCIUM 20 MG TABLET PO SCH (22:00)
[2017-02-26] MEDS: METRONIDAZOLE 500 MG TABLET PO SCH ×3 (00:14→11:38)
[2017-02-26 05:25] LABS: HEMATOCRIT 37.2 % (36.0-47.0); HEMOGLOBIN 12.3 g/dL (12.0-15.5); HGB HCT DIFFERENCE -0.3; MEAN CORPUSCULAR HEMOGLOBIN 30.6 pg (27.0-33.4); MEAN CORPUSCULAR HGB CONC 33.1 g/dL (32.0-36.0); MEAN CORPUSCULAR VOLUME 92 fl (80-97); RED BLOOD COUNT 4.02 10^6/uL (3.72-5.28); RED CELL DISTRIBUTION WIDTH 14.1 % (11.5-14.0); WHITE BLOOD COUNT 5.2 10^3/uL (4.0-10.5)
[2017-02-26 05:44] LABS: ANION GAP 5 (5-19); BLOOD UREA NITROGEN 27 mg/dL (7-20); CALCIUM 10.6 mg/dL (8.4-10.2); CARBON DIOXIDE 30 mmol/L (22-30); CHLORIDE 108 mmol/L (98-107); CREATININE RESULT 1.01 mg/dL (0.52-1.25); GLUCOSE 116 mg/dL (75-110); POTASSIUM 4.6 mmol/L (3.6-5.0); SODIUM 143.1 mmol/L (137-145)
[2017-02-26] MEDS ORDERED: FUROSEMIDE 20 MG TABLET PO SCH (08:00)
[2017-02-26] MEDS ORDERED: FUROSEMIDE 40 MG TABLET PO SCH ×2 (08:00→10:00)
[2017-02-26] MEDS: LEVOTHYROXINE SODIUM 0.1 MG TABLET PO SCH (08:00)
[2017-02-26] MEDS: POTASSIUM CHLORIDE 10 MEQ TABLET.SA PO SCH (08:16)
[2017-02-26] MEDS: GLIMEPIRIDE 1 MG TABLET PO SCH (08:16)
[2017-02-26] MEDS: GABAPENTIN 300 MG CAPSULE PO SCH (08:16)
--- NOTE | 2017-02-26 09:12 | DISCHARGE SUMMARY E ---
Discharge Summary NAME: GEORGETTE RIVERA : 1925 AGE: 89Y ADMITTED: 02/23/2017 DISCHARGED: 02/26/2017 CODE STATUS: DO NOT RESUSCITATE/DO NOT INTUBATE on portable DNR. PRIMARY CARE PROVIDER: Rhys Fuchs MD OUTPATIENT ENVIRONMENTAL HEALTH TECHNOLOGIST: Edin Mast MD OUTPATIENT SHOVEL LOG LOADER OPERATOR: Dr. Chatterjee DISCHARGE DIAGNOSES: 1. Clostridium difficile colitis. 2. Sepsis, secondary to above. 3. Acute renal failure due to prerenal azotemia. 4. Chronic kidney disease stage 3. 5. Chronic diastolic dysfunction. 6. Chronic thrombocytopenia. 7. Hyperlipidemia. 8. Hypertension. 9. Diabetes mellitus type 2. 10. Hypothyroidism. 11. Extended spectrum beta-lactamase Escherichia coli urinary colonization. DISCHARGE MEDICATIONS: 1. Flagyl 500 mg p.o. q.i.d., 28 tablets, 0 refills. 2. Align 4 mg p.o. b.i.d., 28 capsules, 0 refills. 3. Potassium chloride 20 mEq p.o. q.a.m. 4. Lisinopril 10 mg p.o. daily. 5. Linzess 290 mcg p.o. daily. 6. Synthroid 0.1 mg p.o. daily. 7. Amaryl 1 mg p.o. daily. 8. Neurontin 600 mg p.o. at bedtime. 9. Neurontin 300 mg p.o. q.a.m. 10. Lasix 20 mg p.o. at noon. 11. Lasix 40 mg p.o. q.a.m. 12. Plavix 75 mg p.o. daily. 13. Vitamin D3 1000 international units p.o. daily. 14. Atorvastatin 20 mg p.o. at bedtime. 15. Aspirin 81 mg p.o. daily. 16. Amlodipine 5 mg p.o. daily. DIET: Heart-healthy, diabetic, yogurt on each tray as tolerated. ACTIVITY: As per home health physical therapy. DIAGNOSTICS/LABORATORY VALUES: Hematology obtained on 02/26/2017: WBC 5.2, hemoglobin 12.3, hematocrit 37.2, platelet count 103,000. Chemistry obtained on 02/26/2017: Sodium 143, potassium 4.6, chloride 108, carbon dioxide 30, BUN 27, creatinine 1.01, glucose 116, lactic acid 1.4, calcium 10.6, magnesium 2.0, bilirubin 0.8, AST 29, ALT 25, alkaline phosphatase 82, total protein 7.3, albumin 3.7, lipase 40.40. Urinalysis obtained 02/23/2017: Color yellow, appearance slightly cloudy, pH 5.0, specific gravity 1.017, protein negative, glucose negative, ketones negative, occult blood negative, nitrites negative, bilirubin negative, urobilinogen negative, leukocyte esterase trace, WBC 2, RBC 1, casts 9, epithelial squamous cells 1, mucus rare, ascorbic acid 20. Other body source obtained on 02/23/2017: Stool for WBC negative. Serology obtained on 02/23/2017: C. difficile toxin positive. Blood cultures obtained on 02/23/2017 revealed no growth. Stool cultures obtained on 02/23/2017, preliminary reveals no growth. Chest x-ray obtained 02/23/2017 revealed no acute cardiopulmonary findings. CT of the abdomen and pelvis obtained 02/23/2017: Sigmoid diverticula without evidence of acute diverticulitis. EKG obtained 02/24/2017 revealed sinus rhythm. PHYSICAL EXAMINATION: GENERAL: The patient is a well developed, well nourished 89-year-old female who is awake, alert. She is oriented to person, place, time, and situation. She is verbal, conversational, does not appear to be in any acute distress. VITAL SIGNS: Temperature is 97.5, pulse 68, respirations 18, blood pressure 119/70, oxygen saturation 97% on 2 liters nasal cannula. SKIN: Warm and dry. No rash. Not diaphoretic. HEENT: Pupils equal, round, reactive to light and accommodation. Conjunctiva pink. There is no JVP. CARDIOVASCULAR: Heart is regular. There is no murmur or rub. CHEST: Clear, symmetrical, unlabored. ABDOMEN: Soft, nontender, nondistended. BACK: No CVA tenderness or sacral edema. EXTREMITIES: No clubbing, cyanosis, edema. PSYCHIATRIC: Appropriate affect, pleasant mood. HISTORY OF PRESENT ILLNESS: The patient is a very pleasant 89-year-old female with a past medical history of chronic diastolic dysfunction with admission for heart failure, as well as hypotension and admitted to hospitalist service. The patient presented to the emergency department with a chief complaint of persistent diarrhea and weakness. The patient was just on our service from 02/16/2017 through 02/18/2017 due to an exacerbation of CHF. The patient at that time did improve with complete symptom resolution, was doing very well at home until 24 hours prior to presentation when she developed profuse diarrhea with fever and weakness. Therefore, the patient was brought to the emergency department by her daughter. Upon presentation to the emergency department, the patient was given a dose of Zosyn because her white count and subjective fevers were suggestive of UTI; however, on further workup it appeared the patient's serology was positive for C. difficile and the patient was referred to the hospitalist for admission and management. During the patient's previous stay, the patient had a urine culture that was positive for ESBL; however, discussion with Infectious Disease at [facility] recommendations were that given this was indeed a colonization, the ESBL should not be treated and the patient's urine should not be cultured unless the patient is symptomatic in the future. Also recommendation was made to avoid antibiotic therapy unless absolutely necessary. HOSPITAL COURSE: The patient was admitted to continuous telemetry unit. The patient was gently hydrated and the patient's creatinine improved from 7.1 down to her baseline of 1. The patient's diuretics were held, as well as nephrotoxic medications. The patient's white count improved from 11.3 down to 5.2 once oral Flagyl was added. The patient was treated with only oral Flagyl, as well as Align with complete resolution of symptoms. The patient has not had a loose stool since admission. The patient was andrew to treatment. The medicines were resumed and the patient feels that she is back to her baseline and is eager for discharge. DISCHARGE PLAN: The patient is advised to follow with her primary care provider as already scheduled for hospital followup. TIME SPENT: On this discharge including assessment, plan, physical examination, patient education is 25 minutes. DICTATING PHYSICIAN: INO GIRALDO NP [id number] PHY#: [id number] ID: [id number] JOB#: [id number] ACCT: [id number] cc:Edyta COBB M.D. MICHAEL KENNEDY, NP NAGESH JAYARAM, M.D. >
[2017-02-26] MEDS: LACTOBACILLUS ACIDOPHILUS 250 MG TAB PO SCH (09:54)
[2017-02-26] MEDS: LISINOPRIL 10 MG TABLET PO SCH (09:54)
[2017-02-26] MEDS: ASPIRIN 81 MG TABLET, ENT COATED PO SCH (09:55)
[2017-02-26] MEDS: CHOLECALCIFEROL (D3) 1,000 UNIT TABLET PO SCH (09:55)
[2017-02-26] MEDS: AMLODIPINE BESYLATE 5 MG TABLET PO SCH (09:55)
[2017-02-26] MEDS: CLOPIDOGREL BISULFATE 75 MG TABLET PO SCH (09:56)
[2017-02-26 11:01] VITALS: BP 119/40
== END 2017-02-26 12:13 | disposition home health service (06) | DRG 872 ==
LOC: ER 04:56 → EH 11:50 → UNDOADMIN 12:27 → 5 13:58 → EH 13:58
PROVIDERS: ADMIT Family Medicine; ATTEND Family Medicine
DX: A41.9 Sepsis, unspecified organism (principal); A04.7 Enterocolitis due to Clostridium difficile; N17.9 Acute kidney failure, unspecified; I13.0 Hypertensive heart and chronic kidney disease with heart failure and stage 1 through stage 4 chronic kidney disease, or unspecified chronic kidney disease; I50.32 Chronic diastolic (congestive) heart failure; E11.22 Type 2 diabetes mellitus with diabetic chronic kidney disease; N18.3 Chronic kidney disease, stage 3 (moderate); D69.6 Thrombocytopenia, unspecified; E78.5 Hyperlipidemia, unspecified; E03.9 Hypothyroidism, unspecified; M19.90 Unspecified osteoarthritis, unspecified site; E86.0 Dehydration; E11.42 Type 2 diabetes mellitus with diabetic polyneuropathy; K59.09 Other constipation; Z22.322 Carrier or suspected carrier of Methicillin resistant Staphylococcus aureus; Z66 Do not resuscitate; Z88.6 Allergy status to analgesic agent; Z85.828 Personal history of other malignant neoplasm of skin; Z90.49 Acquired absence of other specified parts of digestive tract; Z90.710 Acquired absence of both cervix and uterus; Z79.82 Long term (current) use of aspirin; Z79.02 Long term (current) use of antithrombotics/antiplatelets; Z79.899 Other long term (current) drug therapy
CPT/HCPCS: 36415; 51701; 71010; 74176; 80048; 80053; 81001; 82962; 83605; 83690; 83735; 85025; 85027; 87040; 87045; 87205; 87493; 89055; 93005; 93010; 96361; 96365; 99285; J2543; J3490; J7030; J7040

== ENCOUNTER 2017-04-04 21:11 | Observation (INO) | payer MEDICARE, BC ==
[2017-04-04 21:44] LABS: ABSOLUTE BASOPHILS # (AUTO) 0.1 10^3/uL (0.0-0.2); ABSOLUTE EOSINOPHILS # (AUTO) 0.3 10^3/uL (0.0-0.6); ABSOLUTE LYMPHOCYTES (AUTO) 1.5 10^3/uL (0.5-4.7); ABSOLUTE MONOCYTES (AUTO) 0.5 10^3/uL (0.1-1.4); ABSOLUTE NEUT (AUTO) 2.6 10^3/uL (1.7-8.2); EOSINOPHILS % (AUTO) 6.1 % (0-6); HEMOGLOBIN 12.8 g/dL (12.0-15.5); HGB HCT DIFFERENCE 0.4; MEAN CORPUSCULAR HEMOGLOBIN 30.5 pg (27.0-33.4); MEAN CORPUSCULAR HGB CONC 33.7 g/dL (32.0-36.0); MEAN CORPUSCULAR VOLUME 91 fl (80-97); MONOCYTES % (AUTO) 9.4 % (3-13); RED CELL DISTRIBUTION WIDTH 13.7 % (11.5-14.0); SEGMENTED NEUTROPHILS % (AUTO) 52.5 % (42-78)
[2017-04-04 21:45] LABS: PROTHROMBIN TIME 13.1 SEC (11.4-15.4)
--- NOTE | 2017-04-04 21:54 | RADIOLOGY REPORT (SQ) ---
EXAM DESCRIPTION: CHEST SINGLE VIEW COMPLETED DATE/TIME: 04/04/2017 9:46 pm REASON FOR STUDY: cp COMPARISON: 02/23/2017 EXAM PARAMETERS: NUMBER OF VIEWS: One view. TECHNIQUE: Single frontal radiographic view of the chest acquired. RADIATION DOSE: NA LIMITATIONS: None. FINDINGS: LUNGS AND PLEURA: No opacities, masses or pneumothorax. No pleural effusion. MEDIASTINUM AND HILAR STRUCTURES: No masses. Contour normal. HEART AND VASCULAR STRUCTURES: Heart normal in size. Normal vasculature. BONES: No acute findings. HARDWARE: None in the chest. OTHER: No other significant finding. IMPRESSION: NO ACUTE RADIOGRAPHIC FINDING IN THE CHEST. TECHNICAL DOCUMENTATION: JOB ID: [id number]
--- NOTE | 2017-04-04 22:05 | ER Document Report ---
ED General - General Chief Complaint: Chest Pain Stated Complaint: CHEST PAIN Time Seen by Provider: 04/04/17 21:44 Mode of Arrival: Medic Information source: Patient Notes: This is an 89-year-old female with a history of CHF, hypertension, hypothyroidism, diabetes, hypercalcemia. The patient is brought in by EMS because of chest pain retrosternal radiating down the left arm. Patient's blood pressure at home was 160/69, she took 324 mg of baby aspirin at home. EMS gave the patient 2 nitroglycerin with some relief. Patient states she is feeling somewhat better. TRAVEL OUTSIDE OF THE [place] IN LAST 30 DAYS: No - HPI Onset: Just prior to arrival Onset/Duration: Gradual Quality of pain: Dull Severity: Moderate Pain Level: 2 Associated symptoms: denies: Fever, Shortness of breath Exacerbated by: Denies Relieved by: Denies Similar symptoms previously: No Recently seen / treated by doctor: No - Related Data Allergies/Adverse Reactions: codeine Allergy (Mild, Verified 02/15/17 23:48) Delusions Past Medical History - General Information source: Patient - Social History Smoking Status: Never Smoker Cigarette use (# per day): No Chew tobacco use (# tins/day): No Frequency of alcohol use: None Drug Abuse: None Lives with: Family Family History: Reviewed & Not Pertinent Patient has suicidal ideation: No Patient has homicidal ideation: No - Past Medical History Cardiac Medical History: Reports: Hx Congestive Heart Failure - Diastolic, Hx Coronary Artery Disease, Hx Heart Attack - March 2016, Hx Hypertension Denies: Hx Atrial Fibrillation, Hx Hypercholesterolemia Pulmonary Medical History: Denies: Hx Asthma, Hx Bronchitis, Hx COPD, Hx Pneumonia Neurological Medical History: Denies: Hx Seizures Endocrine Medical History: Reports: Hx Diabetes Mellitus Type 2, Hx Hypothyroidism. Denies: Hx Diabetes Mellitus Type 1 Renal/ Medical History: Denies: Hx Peritoneal Dialysis Malignancy Medical History: Reports: Hx Skin Cancer GI Medical History: Denies: Hx Gastroesophageal Reflux Disease Musculoskeltal Medical History: Reports Hx Arthritis - GENERALIZED, Reports Hx Muscle Weakness, Reports Hx Musculoskeletal Deformity Psychiatric Medical History: Denies: Hx Depression Past Surgical History: Reports: Hx Appendectomy, Hx Cholecystectomy, Hx Hysterectomy - Immunizations Hx Diphtheria, Pertussis, Tetanus Vaccination: Yes Hx Pneumococcal Vaccination: 04/23/13 Review of Systems - Review of Systems Constitutional: denies: Chills, Fever EENT: No symptoms reported Cardiovascular: See HPI Respiratory: No symptoms reported Gastrointestinal: No symptoms reported Genitourinary: No symptoms reported Female Genitourinary: No symptoms reported Musculoskeletal: No symptoms reported Skin: No symptoms reported Hematologic/Lymphatic: No symptoms reported Neurological/Psychological: No symptoms reported Physical Exam - Vital signs Vitals: Pulse Ox 96 04/04/17 21:15 Notes: Physical exam: GENERAL: This is an 89-year-old female, alert and oriented 3, no acute distress. HEAD: Atraumatic, normocephalic. EYES: Pupils equal round and reactive to light, extraocular movements intact, sclera anicteric, conjunctiva are normal. ENT: TMs normal, nares patent, oropharynx clear without exudates. Moist mucous membranes. NECK: Normal range of motion, supple without obvious mass or JVD. LUNGS: Breath sounds clear to auscultation bilaterally and equal. No wheezes rales or rhonchi. HEART: Regular rate and rhythm without murmurs, rubs or gallops. ABDOMEN: Soft, normoactive bowel sounds. No tenderness to palpation. No guarding, no rebound. No masses appreciated. EXTREMITIES: Normal range of motion, no pitting or edema. No clubbing or cyanosis. NEUROLOGICAL: Cranial nerves II through XII grossly intact. Normal speech, moving all extremities. PSYCH: Normal mood, normal affect. SKIN: Warm, Dry, normal turgor, no rashes or lesions noted. This is an 89-year- old Course - Re-evaluation Re-evalutation: 04/05/17 00:20 Patient resting comfortably. She denies pain at this time. She had taken aspirin at home prior to EMS. She was treated with Nitropaste in the ER. Blood pressure 130/70 currently. - Vital Signs Vital signs: Temp Pulse Resp BP Pulse Ox 16 129/60 H 98 04/05/17 01:32 04/05/17 01:32 04/05/17 01:55 - Laboratory Result Diagrams: 04/04/17 21:25 04/04/17 21:25 Laboratory results interpreted by me: 04/04/17 04/04/17 21:25 21:25 Plt Count 86 L Eosinophils % 6.1 H Glucose 191 H Calcium 11.0 H Total Protein 6.2 L - EKG Interpretation by Me Rate: Normal Rhythm: NSR - EKG shows normal sinus rhythm with a ventricular rate of 75, no acute ST-T wave changes Discharge - Discharge Clinical Impression: Chest pain Condition: Stable Disposition: ADMITTED OBSERVATION Admitting Provider: Hospitalist - Dr. Woodson Unit Admitted: Telemetry
[2017-04-04 22:10] LABS: ALANINE AMINOTRANSFERASE 25 U/L (9-52); ALBUMIN 3.5 g/dL (3.5-5.0); ALKALINE PHOSPHATASE 65 U/L (38-126); ANION GAP 9 (5-19); ASPARTATE AMINO TRANSFERASE 16 U/L (14-36); BILIRUBIN,DIRECT 0.4 mg/dL (0.0-0.4); BILIRUBIN,TOTAL 0.4 mg/dL (0.2-1.3); BLOOD UREA NITROGEN 18 mg/dL (7-20); CARBON DIOXIDE 30 mmol/L (22-30); CHLORIDE 101 mmol/L (98-107); CREATINE KINASE 36 U/L (30-135); CREATININE RESULT 0.87 mg/dL (0.52-1.25); GLUCOSE 191 mg/dL (75-110); TOTAL PROTEIN 6.2 g/dL (6.3-8.2)
[2017-04-04 22:16] LABS: CREATINE KINASE MB 0.78 ng/mL (<4.55)
[2017-04-04 22:17] LABS: TROPONIN I < 0.012 ng/mL
--- NOTE | 2017-04-04 22:37 | EKG REPORT ---
SEVERITY:- ABNORMAL ECG - SINUS RHYTHM BORDERLINE T ABNORMALITIES, ANT-LAT LEADS : Confirmed by: Chris Garcia 04-Apr-2017 22:35:54
[2017-04-04] MEDS ORDERED: NITROGLYCERIN 2% OINTMENT 1 GM PACKET TP ONE (23:23)
[2017-04-05] MEDS ORDERED: DEXTROSE 50%-WATER 25 GM/50 ML DISP.SYRIN IV PRN ×2 (00:17)
[2017-04-05] MEDS ORDERED: DEXTROSE 40% GEL 15 GM TUBE PO PRN ×2 (00:17)
[2017-04-05] MEDS ORDERED: GLUCAGON,HUMAN RECOMB 1 MG INJ IM PRN (00:17)
[2017-04-05] MEDS ORDERED: INSULIN LISPRO 100 UNIT/ML 3 ML VIAL SUBCUT PRN (00:17)
[2017-04-05] MEDS ORDERED: NITROGLYCERIN 0.4 MG/TAB 25 TAB/BOTTLE SL PRN (00:17)
[2017-04-05] MEDS ORDERED: AMLODIPINE BESYLATE 5 MG TABLET PO ONE (01:30)
[2017-04-05] MEDS ORDERED: MAG HYDROX/AL HYDROX/SIMETH SUSP 30 ML UDCUP PO ONE (01:30)
[2017-04-05] MEDS ORDERED: ENALAPRILAT DIHYDRATE INJ/PF 1.25 MG/1 ML SDV IV PRN (01:36)
--- NOTE | 2017-04-05 03:05 | PDOC H&P ---
History of Present Illness Admission Date/PCP: 04/05/17 00:17 JORGE MAY MD Patient complains of: Left-sided chest and arm pain History of Present Illness: GEORGETTE RIVERA is a 89 year old female with a past medical history of diastolic heart failure, hypertension, stage III chronic kidney disease and hypercalcemia. Patient been her usual state of health until approximately 10 hours prior to presentation with dull, 3 of 5 intensity, left-sided chest pain radiating to the left arm associated with shortness of breath. Patient denies alleviating or exacerbating factors or change in medications. In the emergency room she is found to have hypercalcemia and referred to the hospitalist for admission. Past Medical History Cardiac Medical History: Reports: Congestive Heart Failure - Diastolic, Coronary Artery Disease, Myocardial Infarction - March 2016, Hypertension Denies: Atrial Fibrillation, Hyperlipidema Pulmonary Medical History: Denies: Asthma, Bronchitis, Chronic Obstructive Pulmonary Disease (COPD), Pneumonia Neurological Medical History: Denies: Seizures Endocrine Medical History: Reports: Diabetes Mellitus Type 2, Hypothyroidism Denies: Diabetes Mellitus Type 1 Malignancy Medical History: Reports: Skin Cancer GI Medical History: Denies: Gastroesophageal Reflux Disease Musculoskeltal Medical History: Reports: Arthritis - GENERALIZED Psychiatric Medical History: Denies: Depression Hematology: Denies: Anemia Past Surgical History Past Surgical History: Reports: Appendectomy, Cholecystectomy, Hysterectomy Social History Information Source: Patient, [facility] Records Lives with: Family Smoking Status: Never Smoker Frequency of Alcohol Use: None Hx Recreational Drug Use: No Drugs: None Hx Prescription Drug Abuse: No - Advance Directive Resuscitation Status: Do Not Resuscitate Family History Family History: Arthritis, Hypertension Parental Family History Reviewed: Yes Children Family History Reviewed: Yes Sibling(s) Family History Reviewed.: Yes Medication/Allergy Home Medications: Aspirin [Aspirin EC] 81 mg PO DAILY 02/23/17 Atorvastatin Calcium 20 mg PO QHS 02/23/17 Cholecalciferol (Vitamin D3) [Vitamin D3] 1,000 unit PO DAILY 02/23/17 Clopidogrel Bisulfate [Plavix 75 mg Tablet] 75 mg PO DAILY 02/23/17 Gabapentin [Neurontin 300 mg Capsule] 300 mg PO QAM 02/23/17 Gabapentin [Neurontin] 600 mg PO QHS 02/23/17 Glimepiride [Amaryl 1 mg Tablet] 1 mg PO DAILY 02/23/17 Levothyroxine Sodium [Synthroid 0.1 mg Tablet] 0.1 mg PO DAILY 02/23/17 Linaclotide [Linzess] 290 mcg PO DAILY 02/23/17 Lisinopril [Zestril] 10 mg PO DAILY 02/23/17 Potassium Chloride 20 meq PO QAM 02/23/17 Furosemide [Lasix 20 mg Tablet] 20 mg PO NOON 02/25/17 Furosemide [Lasix 20 mg Tablet] 40 mg PO QAM 02/25/17 Bifidobacterium Infantis [Align 4 mg Capsule] 1 cap PO BID #28 cap NS 02/26/17 Allergies/Adverse Reactions: codeine Allergy (Mild, Verified 02/15/17 23:48) Delusions Review of Systems Constitutional: ABSENT: chills, fever(s), headache(s), weight gain, weight loss Eyes: ABSENT: visual disturbances Ears: ABSENT: hearing changes Cardiovascular: ABSENT: chest pain, dyspnea on exertion, edema, orthropnea, palpitations Respiratory: ABSENT: cough, hemoptysis Gastrointestinal: ABSENT: abdominal pain, constipation, diarrhea, hematemesis, hematochezia, nausea, vomiting Genitourinary: ABSENT: dysuria, hematuria Musculoskeletal: ABSENT: joint swelling Integumentary: ABSENT: rash, wounds Neurological: ABSENT: abnormal gait, abnormal speech, confusion, dizziness, focal weakness, syncope Psychiatric: ABSENT: anxiety, depression, homidical ideation, suicidal ideation Endocrine: ABSENT: cold intolerance, heat intolerance, polydipsia, polyuria Hematologic/Lymphatic: ABSENT: easy bleeding, easy bruising Physical Exam Vital Signs: Temp Pulse Resp BP Pulse Ox 16 129/60 H 98 04/05/17 01:32 04/05/17 01:32 04/05/17 01:55 General appearance: PRESENT: no acute distress, well-developed, well-nourished Head exam: PRESENT: atraumatic, normocephalic Eye exam: PRESENT: conjunctiva pink, EOMI, PERRLA. ABSENT: scleral icterus Ear exam: PRESENT: normal external ear exam Mouth exam: PRESENT: moist, tongue midline Neck exam: ABSENT: carotid bruit, JVD, lymphadenopathy, thyromegaly Respiratory exam: PRESENT: clear to auscultation niecy. ABSENT: rales, rhonchi, wheezes Cardiovascular exam: PRESENT: RRR. ABSENT: diastolic murmur, rubs, systolic murmur Pulses: PRESENT: normal dorsalis pedis pul Vascular exam: PRESENT: normal capillary refill GI/Abdominal exam: PRESENT: normal bowel sounds, soft. ABSENT: distended, guarding, mass, organolmegaly, rebound, tenderness Rectal exam: PRESENT: deferred Extremities exam: PRESENT: full ROM. ABSENT: calf tenderness, clubbing, pedal edema Musculoskeletal exam: PRESENT: other - Reproducible pain to palpation of the left biceps. Neurological exam: PRESENT: alert, awake, oriented to person, oriented to place , oriented to time, oriented to situation, CN II-XII grossly intact. ABSENT: motor sensory deficit Psychiatric exam: PRESENT: appropriate affect, normal mood. ABSENT: homicidal ideation, suicidal ideation Skin exam: PRESENT: dry, intact, warm. ABSENT: cyanosis, rash Results Impressions: Chest X-Ray 04/04/17 21:15 IMPRESSION: NO ACUTE RADIOGRAPHIC FINDING IN THE CHEST. Assessment & Plan - Diagnosis (1) Atypical chest pain Is this a current diagnosis for this admission?: Yes Plan: Atypical chest pain will observe and evaluation of acute coronary syndrome versus coronary artery disease with anginal equivalents. Cardiac monitoring blood pressure Q6 hours ,TSH, lipid profile, serial cardiac enzymes and patient is not a candidate for invasive management continue optimization of medication for coronary artery disease however given age and debility may consider discontinuing many of her medications. (2) Muscle strain Is this a current diagnosis for this admission?: Yes Plan: Symptomatic management discontinuation of statin (3) Anxiety Is this a current diagnosis for this admission?: Yes Plan: Trazodone as needed (4) Hypercalcemia Is this a current diagnosis for this admission?: Yes Plan: May contribute to the above complaints IV fluid challenge consider bisphosphonate if follow-up remains significantly elevated - Time Time Spent: 50 to 70 Minutes - Inpatient Certification Medical Necessity: Need Close Monitoring Due to Risk of Patient Decompensation
[2017-04-05 04:21] LABS: CHOLESTEROL 156.55 mg/dL (0-200); Direct HDL 44 mg/dL (>40); TRIGLYCERIDES 142 mg/dL (<150)
[2017-04-05 04:32] LABS: CREATINE KINASE MB 0.71 ng/mL (<4.55); DIRECT LDL 81 mg/dL (<100)
[2017-04-05 04:38] LABS: TROPONIN I < 0.012 ng/mL
[2017-04-05 05:08] LABS: APPEARANCE,URINE SLIGHTLY-CLOUDY; BILIRUBIN,URINE NEGATIVE (NEGATIVE); CALCIUM OXALATE CRYSTALS,URINE MODERATE /HPF; GLUCOSE, URINE NEGATIVE (NEGATIVE); KETONES,URINE NEGATIVE (NEGATIVE); LEUKOCYTE ESTERASE,URINE LARGE (NEGATIVE); NITRITE,URINE NEGATIVE (NEGATIVE); PROTEIN,URINE NEGATIVE (NEGATIVE); URINE SPECIFIC GRAVITY 1.018; UROBILINOGEN,URINE NEGATIVE mg/dL (<2.0)
[2017-04-05] MEDS: HEPARIN SOD (PORCINE) 5,000 UNIT/ML 1 ML SYRINGE SUBCUT SCH ×3 (05:12→21:44)
[2017-04-05] MEDS: LANSOPRAZOLE 30 MG TAB.RAP.DR PO SCH ×2 (05:16→17:08)
[2017-04-05] MEDS: POTASSIUM CHLORIDE 10 MEQ TABLET.SA PO SCH (08:39)
[2017-04-05] MEDS: FUROSEMIDE 20 MG TABLET PO SCH (08:40)
[2017-04-05] MEDS: GLIMEPIRIDE 1 MG TABLET PO SCH (08:41)
[2017-04-05] MEDS: AMLODIPINE BESYLATE 5 MG TABLET PO SCH (09:08)
[2017-04-05] MEDS: CLOPIDOGREL BISULFATE 75 MG TABLET PO SCH (09:08)
[2017-04-05] MEDS: ASPIRIN 81 MG TABLET, ENT COATED PO SCH (09:08)
[2017-04-05] MEDS: LISINOPRIL 10 MG TABLET PO SCH (09:09)
[2017-04-05] MEDS: LEVOTHYROXINE SODIUM 0.1 MG TABLET PO SCH (09:09)
[2017-04-05] MEDS: DOCUSATE SODIUM 100 MG CAPSULE PO SCH ×2 (09:09→17:08)
[2017-04-05 10:13] LABS: CREATINE KINASE MB 0.81 ng/mL (<4.55)
[2017-04-05 10:20] LABS: TROPONIN I < 0.012 ng/mL
[2017-04-05] MEDS ORDERED: ONDANSETRON HCL INJ/PF 4 MG/2 ML SDV IV PRN (11:48)
[2017-04-05] MEDS ORDERED: KETOROLAC TROMETHAMINE INJ/PF 30 MG/1 ML SDV IV ONE (13:00)
--- NOTE | 2017-04-05 13:08 | PDOC PROGRESS REPORT ---
Subjective Progress Note for:: 04/05/17 Subjective:: Ms. White is a 89-year-old female who was admitted yesterday with atypical chest pain. She has ruled out for myocardial infarction based on negative cardiac enzymes. Today, she has an additional constellation of symptoms. She reports a headache on the top of her head, and forehead. She reports mild nausea without vomiting. She also reports discomfort across her lower chest/ upper abdomen. She did not report these symptoms yesterday. Physical Exam Vital Signs: Temp Pulse Resp BP Pulse Ox 97.6 F 66 26 H 124/54 L 96 04/05/17 11:32 04/05/17 11:32 04/05/17 11:32 04/05/17 11:32 04/05/17 11:32 Intake & Output 04/04/17 04/05/17 04/06/17 06:59 06:59 06:59 Intake Total 120 Output Total 200 Balance -80 Weight 85.6 kg General appearance: PRESENT: no acute distress, cooperative, obese Head exam: PRESENT: atraumatic, normocephalic Eye exam: PRESENT: conjunctiva pink, EOMI, PERRLA. ABSENT: scleral icterus Respiratory exam: PRESENT: decreased breath sounds - Bibasilar, unlabored. ABSENT: accessory muscle use, chest wall tenderness GI/Abdominal exam: PRESENT: normal bowel sounds, soft. ABSENT: distended, guarding, mass, organolmegaly, rebound, tenderness Rectal exam: PRESENT: deferred Extremities exam: PRESENT: +1 edema - Bilateral pretibial Neurological exam: PRESENT: alert, awake, oriented to person, oriented to place , oriented to time, oriented to situation, CN II-XII grossly intact. ABSENT: motor sensory deficit Psychiatric exam: PRESENT: appropriate affect, normal mood. ABSENT: homicidal ideation, suicidal ideation Skin exam: PRESENT: dry, intact, warm. ABSENT: cyanosis, rash Results Laboratory Results: 04/05/17 04/05/17 03:57 04:15 Triglycerides 142 Cholesterol 156.55 LDL Cholesterol Direct 81 VLDL Cholesterol 28.0 HDL Cholesterol 44 Urine Color YELLOW Urine Appearance SLIGHTLY-CLOUDY Urine pH 5.0 Ur Specific [place] 1.018 Urine Protein NEGATIVE Urine Glucose (UA) NEGATIVE Urine Ketones NEGATIVE Urine Blood NEGATIVE Urine Nitrite NEGATIVE Ur Leukocyte Esterase LARGE H Urine WBC (Auto) 23 Urine RBC (Auto) 3 04/05/17 04/05/17 03:57 09:29 CK-MB (CK-2) 0.71 0.81 Troponin I < 0.012 < 0.012 Impressions: Chest X-Ray 04/04/17 21:15 IMPRESSION: NO ACUTE RADIOGRAPHIC FINDING IN THE CHEST. Assessment & Plan - Diagnosis (1) Atypical chest pain Is this a current diagnosis for this admission?: Yes Plan: I am not convinced that this is cardiac. CT chest with pulmonary angiogram ordered. When asked the location, she points to her upper abdomen. Her cardiac enzymes were normal. She will follow-up with her assembler seat, Dr. Chatterjee next week. (2) Nausea Is this a current diagnosis for this admission?: Yes Plan: This is in association with her headache. Interestingly, her daughter pulled me and her nurse to the side and wondered whether or not her mother was over exaggerating. She said that her mother began to complain of these various complaints or symptoms when she arrived. She said the same thing happened yesterday in the emergency department when her brother arrived. I would imagine , that she is too old to start having migraines. Her head was not tender to suggest temporal arteritis. She did not complain of a change in vision or double vision. She did not have a sore throat or cough. He did not have a runny nose or nasal congestion. I will order Zofran as needed for now. Also ordered a CT of the abdomen and pelvis. CT head and CT chest were also obtained. I did this simply because her symptoms are nebulous. (3) Diabetes mellitus type 2 in obese Is this a current diagnosis for this admission?: Yes Plan: Her blood sugars okay for now. No change in medications. (4) Hypertension Qualifiers: Hypertension type: essential hypertension Qualified Code(s): I10 - Essential (primary) hypertension Is this a current diagnosis for this admission?: Yes Plan: Blood pressure okay. No changes. (5) Hypothyroidism Qualifiers: Hypothyroidism type: unspecified Qualified Code(s): E03.9 - Hypothyroidism , unspecified Is this a current diagnosis for this admission?: Yes Plan: Stable. Continue levothyroxine (6) Thrombocytopenia Is this a current diagnosis for this admission?: Yes Plan: Appears chronic. No changes. (7) Peripheral neuropathy Qualifiers: Peripheral neuropathy type: polyneuropathy, unspecified Qualified Code(s): G62.9 - Polyneuropathy, unspecified Is this a current diagnosis for this admission?: Yes Plan: Stable. (8) Abnormal urinalysis Is this a current diagnosis for this admission?: Yes Plan: She is not symptomatic. I would not treat. - Time Time Spent with patient: 35 or more minutes Medications reviewed and adjusted accordingly: Yes Anticipated discharge: Home - Inpatient Certification Based on my medical assessment, after consideration of the patient's comorbidities, presenting symptoms, or acuity I expect that the services needed warrant INPATIENT care.: Yes I certify that my determination is in accordance with my understanding of Medicare's requirements for reasonable and necessary INPATIENT services [42 CFR 412.3e].: Yes
--- NOTE | 2017-04-05 15:20 | RADIOLOGY REPORT (SQ) ---
EXAM DESCRIPTION: CT HEAD WITHOUT COMPLETED DATE/TIME: 04/05/2017 3:09 pm REASON FOR STUDY: headache, dizzy, nausea COMPARISON: CT brain 04/13/2016, 01/06/2014 TECHNIQUE: Axial images acquired through the brain without intravenous contrast. Images reviewed wi th bone, brain and subdural windows. Images stored on PACS. All CT scanners at this facility use dose modulation, iterative reconstruction, and/or weight based d osing when appropriate to reduce radiation dose to as low as reasonably achievable (ALARA). [facility]: Dose Right [facility]: CareDose [facility]: Dose Right [facility]: Teradose 4D [facility]: Chance (app) RADIATION DOSE: Up-to-date CT equipment and radiation dose reduction techniques were employed. CTDIv ol: 49.0 mGy. DLP: 783 mGy-cm. mGy. LIMITATIONS: None. FINDINGS: VENTRICLES: Normal size and contour. CEREBRUM: No masses. No hemorrhage. No midline shift. No evidence for acute infarction. Normal gra y/white matter differentiation. No areas of low density in the white matter. CEREBELLUM: No masses. No hemorrhage. No alteration of density. No evidence for acute infarction. EXTRAAXIAL SPACES: No fluid collections. No masses. ORBITS AND GLOBE: No intra- or extraconal masses. Normal contour of globe without masses. CALVARIUM: No fracture. PARANASAL SINUSES: No fluid or mucosal thickening. SOFT TISSUES: No mass or hematoma. OTHER: No other significant finding. IMPRESSION: NORMAL BRAIN CT WITHOUT CONTRAST. COMMENT: Quality ID # 436: Final reports with documentation of one or more dose reduction techniques (e.g., Automated exposure control, adjustment of the mA and/or kV according to patient size, use of iterative reconstruction technique) TECHNICAL DOCUMENTATION: JOB ID: [id number] [employer]- All Rights Reserved
--- NOTE | 2017-04-05 15:27 | RADIOLOGY REPORT (SQ) ---
EXAM DESCRIPTION: CTA CHEST COMPLETED DATE/TIME: 04/05/2017 3:09 pm REASON FOR STUDY: chest pain COMPARISON: AP chest 02/23/2017, 04/04/2017 CT angio chest 02/16/2017 TECHNIQUE: CT scan of the chest performed using helical scanning technique with dynamic intravenous contrast injection. Images reviewed with lung, soft tissue and bone windows. Reconstructed coronal and sagittal MPR images reviewed. Additional 3 dimensional post-processing performed to develop Maximal Intensity Projection images (OR P). All images stored on PACS. All CT scanners at this facility use dose modulation, iterative reconstruction, and/or weight based d osing when appropriate to reduce radiation dose to as low as reasonably achievable (ALARA). [facility]: Dose Right [facility]: CareDose [facility]: Dose Right [facility]: Teradose 4D [facility]: [employer] CONTRAST TYPE AND DOSE: contrast/concentration: Isovue 370.00 mg/ml; Total Contrast Delivered: 69.0 ml; Total Saline Delivered: 100.0 ml Contrast bolus optimized for the pulmonary arteries. Not diagnostic for the aorta. RENAL FUNCTION: Creatinine 0.87 RADIATION DOSE: Up-to-date CT equipment and radiation dose reduction techniques were employed. CTDIv ol: 14.1 - 22.9 mGy. DLP: 2752 mGy-cm. . LIMITATIONS: None. FINDINGS: LUNGS AND PLEURA: Calcified granuloma right upper lobe. Lungs otherwise clear. No pleura l effusions. No pneumothorax. AORTA AND GREAT VESSELS: No aneurysm. Contrast bolus not optimized for the aorta. HEART: No pericardial effusion. No significant coronary artery calcifications. Mild cardiomegaly PULMONARY ARTERIES: No emboli visualized in the main pulmonary arteries or the segmental branches. HILAR AND MEDIASTINAL STRUCTURES: No identified masses or abnormal nodes. HARDWARE: None in the chest. UPPER ABDOMEN: Post cholecystectomy THYROID AND OTHER SOFT TISSUES: No masses. No adenopathy. BONES: No acute or significant finding. 3D MIPS: Confirm above findings. OTHER: No other significant finding. IMPRESSION: No CT angio evidence of acute pulmonary emboli. No acute infiltrates COMMENT: Quality ID # 436: Final reports with documentation of one or more dose reduction techniques (e.g., Automated exposure control, adjustment of the mA and/or kV according to patient size, use of iterative reconstruction technique) TECHNICAL DOCUMENTATION: JOB ID: [id number]- All Rights Reserved
--- NOTE | 2017-04-05 15:34 | RADIOLOGY REPORT (SQ) ---
EXAM DESCRIPTION: CT ABD/PELVIS WITH IV ORAL COMPLETED DATE/TIME: 04/05/2017 3:09 pm REASON FOR STUDY: chest/abdominal pain, nausea COMPARISON: CT abdomen pelvis 02/23/2017 TECHNIQUE: CT scan of the abdomen and pelvis performed using helical scanning technique with dynamic intravenous contrast injection. Patient drank oral contrast. Images reviewed with lung, soft tissue , and bone windows. Reconstructed coronal and sagittal MPR images reviewed. Delayed images for evalua tion of the urinary system also acquired. All images stored on PACS. All CT scanners at this facility use dose modulation, iterative reconstruction, and/or weight based d osing when appropriate to reduce radiation dose to as low as reasonably achievable (ALARA). [facility]: Dose Right [facility]: CareDose [facility]: Dose Right [facility]: Teradose 4D [facility]: [employer] CONTRAST TYPE AND DOSE: 69 mL Isovue 370- low osmolar. Small contrast extravasation in the right antecubital fossa. Treatment as per contrast extravasation protocol. RENAL FUNCTION: Creatinine 0.87 RADIATION DOSE: 37.3. LIMITATIONS: None. FINDINGS: LOWER CHEST: No significant findings. No nodules or infiltrates. Small hiatal hernia LIVER: Normal size. No masses. No dilated ducts. SPLEEN: Normal size. No focal lesions. PANCREAS: No masses. No significant calcifications. No adjacent inflammation or peripancreatic fluid collections. Pancreatic duct not dilated. GALLBLADDER: Surgically absent ADRENAL GLANDS: No significant masses or asymmetry. RIGHT KIDNEY AND URETER: No solid masses. No significant calcifications. No hydronephrosis or hyd roureter. LEFT KIDNEY AND URETER: No solid masses. No significant calcifications. No hydronephrosis or hydr oureter. AORTA AND VESSELS: No aneurysm. No dissection. Renal arteries, SMA, celiac without stenosis. RETROPERITONEUM: No retroperitoneal adenopathy, hemorrhage or masses. BOWEL AND PERITONEAL CAVITY: Oral contrast through the gastrointestinal tract. No evidence of bowel obstruction. Extensive sigmoid colon diverticulosis without CT signs of acute diverticulitis. APPENDIX: Surgically absent PELVIS: No mass. No free fluid. Normal bladder. Post hysterectomy ABDOMINAL WALL: Surgical clips in the subxiphoid region. Tiny fat containing umbilical hernia. BONES: No significant or acute findings. OTHER: No other significant finding. IMPRESSION: Colonic diverticulosis without CT signs of acute diverticulitis. TECHNICAL DOCUMENTATION: JOB ID: [id number] Quality ID # [id number]: Final reports with documentation of one or more dose reduction techniques (e.g., Au tomated exposure control, adjustment of the mA and/or kV according to patient size, use of iterative reconstruction technique) 2010 [employer]- All Rights Reserved
[2017-04-05] MEDS ORDERED: ACETAMINOPHEN 325 MG TABLET PO PRN (16:48)
[2017-04-05 16:52] LABS: CREATINE KINASE MB 0.75 ng/mL (<4.55)
[2017-04-05 16:54] LABS: TROPONIN I < 0.012 ng/mL
[2017-04-05] MEDS ORDERED: TIZANIDINE HCL 4 MG TABLET PO ONE (17:30)
[2017-04-05] MEDS ORDERED: TEMAZEPAM 7.5 MG CAPSULE PO SCH (22:00)
[2017-04-05] MEDS ORDERED: ATORVASTATIN CALCIUM 20 MG TABLET PO SCH (22:00)
[2017-04-05] MEDS ORDERED: GABAPENTIN 300 MG CAPSULE PO SCH (22:00)
[2017-04-05] MEDS: TIZANIDINE HCL 4 MG TABLET PO SCH (22:02)
[2017-04-06] MEDS: HEPARIN SOD (PORCINE) 5,000 UNIT/ML 1 ML SYRINGE SUBCUT SCH (05:09)
[2017-04-06] MEDS: LANSOPRAZOLE 30 MG TAB.RAP.DR PO SCH (05:41)
[2017-04-06] MEDS: TIZANIDINE HCL 4 MG TABLET PO SCH (05:42)
[2017-04-06] MEDS: POTASSIUM CHLORIDE 10 MEQ TABLET.SA PO SCH (08:02)
[2017-04-06] MEDS: GLIMEPIRIDE 1 MG TABLET PO SCH (08:02)
[2017-04-06] MEDS: FUROSEMIDE 20 MG TABLET PO SCH (08:02)
[2017-04-06] MEDS: LEVOTHYROXINE SODIUM 0.1 MG TABLET PO SCH (09:49)
[2017-04-06] MEDS: CLOPIDOGREL BISULFATE 75 MG TABLET PO SCH (09:49)
[2017-04-06] MEDS: ASPIRIN 81 MG TABLET, ENT COATED PO SCH (09:49)
[2017-04-06] MEDS: DOCUSATE SODIUM 100 MG CAPSULE PO SCH (09:50)
[2017-04-06] MEDS: AMLODIPINE BESYLATE 5 MG TABLET PO SCH (09:50)
[2017-04-06] MEDS: LISINOPRIL 10 MG TABLET PO SCH (09:51)
[2017-04-06 11:36] VITALS: BP 128/48
--- NOTE | 2017-04-06 17:32 | PDOC DISCHARGE SUMMARY ---
General - Admit/Disc Date/PCP Admission Date/Primary Care Provider: 04/05/17 00:17 JORGE MAY MD Discharge Date: 04/06/17 - Discharge Diagnosis (1) Atypical chest pain Is this a current diagnosis for this admission?: Yes (2) Nausea Is this a current diagnosis for this admission?: Yes (3) Diabetes mellitus type 2 in obese Is this a current diagnosis for this admission?: Yes (4) Hypertension Is this a current diagnosis for this admission?: Yes (5) Hypothyroidism Is this a current diagnosis for this admission?: Yes (6) Thrombocytopenia Is this a current diagnosis for this admission?: Yes (7) Peripheral neuropathy Is this a current diagnosis for this admission?: Yes (8) Abnormal urinalysis Is this a current diagnosis for this admission?: Yes - Additional Information Resuscitation Status: Do Not Resuscitate Discharge Diet: Cardiac Discharge Activity: Activity As Tolerated Home Medications: Aspirin [Aspirin EC] 81 mg PO DAILY 02/23/17 Atorvastatin Calcium 20 mg PO QHS 02/23/17 Cholecalciferol (Vitamin D3) [Vitamin D3] 1,000 unit PO DAILY 02/23/17 Clopidogrel Bisulfate [Plavix 75 mg Tablet] 75 mg PO DAILY 02/23/17 Gabapentin [Neurontin 300 mg Capsule] 300 mg PO QAM 02/23/17 Gabapentin [Neurontin] 600 mg PO QHS 02/23/17 Glimepiride [Amaryl 1 mg Tablet] 1 mg PO DAILY 02/23/17 Levothyroxine Sodium [Synthroid 0.1 mg Tablet] 0.1 mg PO DAILY 02/23/17 Linaclotide [Linzess] 290 mcg PO DAILY 02/23/17 Lisinopril [Zestril] 10 mg PO DAILY 02/23/17 Potassium Chloride 20 meq PO QAM 02/23/17 Furosemide [Lasix 20 mg Tablet] 20 mg PO NOON 02/25/17 Furosemide [Lasix 20 mg Tablet] 40 mg PO QAM 02/25/17 Bifidobacterium Infantis [Align 4 mg Capsule] 1 cap PO BID #28 cap NS 02/26/17 Ondansetron HCl [Zofran 4 mg Tablet] 1 tab PO Q12HP PRN 04/05/17 Amlodipine Besylate [Norvasc 5 mg Tablet] 5 mg PO DAILY tablet 04/06/17 History of Present Illness History of Present Illness: GEORGETTE RIVERA is a 89 year old female with a past medical history of diastolic heart failure, hypertension, stage III chronic kidney disease and hypercalcemia. Patient been her usual state of health until approximately 10 hours prior to presentation with dull, 3 of 5 intensity, left-sided chest pain radiating to the left arm associated with shortness of breath. Patient denied alleviating or exacerbating factors or change in medications. Hospital Course Hospital Course: Her hospital stay was uneventful. Her troponins were negative. The chest pain and left arm discomfort were no longer issues. She also complained of a vague tight sensation on her scalp. She also complained of discomfort across her lower chest/upper abdomen. Her symptoms were so vague, that I obtained a CT head, CT chest with pulmonary angiogram as well as CT abdomen/pelvis. All of her studies were normal, except for diverticulosis. Interestingly, it was only at discharge that she mentioned that these vague symptoms have been intermittent. They were not new. Physical Exam Vital Signs: Temp Pulse Resp BP Pulse Ox 97.3 F 60 18 112/51 L 98 04/06/17 08:04 04/06/17 08:04 04/06/17 08:04 04/06/17 08:04 04/06/17 09:38 Intake & Output 04/05/17 04/06/17 04/07/17 06:59 06:59 06:59 Intake Total 120 540 Output Total 200 1460 Balance -80 -920 Weight 85.6 kg General appearance: PRESENT: no acute distress Head exam: PRESENT: atraumatic, normocephalic Eye exam: PRESENT: conjunctiva pink, EOMI, PERRLA. ABSENT: scleral icterus Neck exam: ABSENT: carotid bruit, JVD, lymphadenopathy, thyromegaly Respiratory exam: PRESENT: clear to auscultation niecy. ABSENT: rales, rhonchi, wheezes Cardiovascular exam: PRESENT: RRR. ABSENT: diastolic murmur, rubs, systolic murmur GI/Abdominal exam: PRESENT: normal bowel sounds, soft. ABSENT: distended, guarding, mass, organolmegaly, rebound, tenderness Neurological exam: PRESENT: alert, awake, oriented to person, oriented to place , oriented to time, oriented to situation, CN II-XII grossly intact. ABSENT: motor sensory deficit Psychiatric exam: PRESENT: appropriate affect, normal mood. ABSENT: homicidal ideation, suicidal ideation Skin exam: PRESENT: dry, intact, warm. ABSENT: cyanosis, rash Results Laboratory Results: 04/05/17 04:10 Nasophary ([facility] Only) MRSA Surveillance Culture - Final NO MRSA RECOVERED 04/05/17 04/05/17 04/05/17 03:57 09:29 16:00 Creatine Kinase CK-MB (CK-2) 0.71 0.81 0.75 Troponin I < 0.012 < 0.012 < 0.012 04/06/17 05:14 Creatine Kinase 24 L CK-MB (CK-2) Troponin I Impressions: Chest X-Ray 04/04/17 21:15 IMPRESSION: NO ACUTE RADIOGRAPHIC FINDING IN THE CHEST. Abdomen/Pelvis CT 04/05/17 00:00 IMPRESSION: Colonic diverticulosis without CT signs of acute diverticulitis. Chest/Abdomen CTA 04/05/17 00:00 IMPRESSION: No CT angio evidence of acute pulmonary emboli. No acute infiltrates Head CT 04/05/17 00:00 IMPRESSION: NORMAL BRAIN CT WITHOUT CONTRAST. 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 She already had an appointment prior to this hospitalization. Time Spent: Greater than 30 Minutes - 40 minutes
== END 2017-04-06 12:31 | disposition home or self-care (01) ==
LOC: ER 21:11 → INTOOBSV 04-05 00:17 → EH 04-05 00:17 → UNDOADMIN 04-05 00:50 → EH 04-05 00:50 → 4W 04-05 02:46
PROVIDERS: ADMIT Internal Medicine; ATTEND Internal Medicine
DX: R07.89 Other chest pain (principal); R11.0 Nausea; E66.9 Obesity, unspecified; E11.42 Type 2 diabetes mellitus with diabetic polyneuropathy; I13.0 Hypertensive heart and chronic kidney disease with heart failure and stage 1 through stage 4 chronic kidney disease, or unspecified chronic kidney disease; E11.22 Type 2 diabetes mellitus with diabetic chronic kidney disease; N18.3 Chronic kidney disease, stage 3 (moderate); Z66 Do not resuscitate; I50.30 Unspecified diastolic (congestive) heart failure; E03.9 Hypothyroidism, unspecified; D69.6 Thrombocytopenia, unspecified; R82.90 Unspecified abnormal findings in urine; K57.30 Diverticulosis of large intestine without perforation or abscess without bleeding; E83.52 Hypercalcemia; I25.2 Old myocardial infarction; I25.10 Atherosclerotic heart disease of native coronary artery without angina pectoris; M19.90 Unspecified osteoarthritis, unspecified site; F41.9 Anxiety disorder, unspecified; R23.8 Other skin changes; R51 Headache; R60.0 Localized edema; T14.8 Other injury of unspecified body region; X58.XXXA Exposure to other specified factors, initial encounter; M79.622 Pain in left upper arm; Z79.82 Long term (current) use of aspirin; Z79.02 Long term (current) use of antithrombotics/antiplatelets; Z79.899 Other long term (current) drug therapy; Z90.49 Acquired absence of other specified parts of digestive tract; Z90.710 Acquired absence of both cervix and uterus; Z82.49 Family history of ischemic heart disease and other diseases of the circulatory system; Z68.31 Body mass index [BMI] 31.0-31.9, adult
CPT/HCPCS: 93005; 99285; 36415 ×3; 87086; 82553 ×2; 82962 ×2; 82550 ×2; 85025; 85610; 87088; 80053; 81001; 84484 ×2; 87186; 80061; 71010; 70450; 71275; 74177; 93010; G0378 ×3; A9270 ×25; J1885; J3490 ×2